=== PATIENT | female | born 1940 | race Caucasian/White ===

== ENCOUNTER → 2016-04-28 | Outpatient (CLI) | payer OTHER ==
[~2016-04-28] MED LIST: ASPI-232 PO; CALCTAB5 PO; CHOL1000 PO; FLNIN NAE; HYG/25 PO; LISI-725 PO; METO1TAB69 PO; OMEG12006 PO; POTA12PO5 PO; PRAV20TA PO; SYN75 PO; TRAM-10 PO; VTMEUNK PO; [UNRECOGNIZED DRUG - CODE] PO
--- NOTE | 2016-04-28 13:35 | MAMMOGRAPHY REPORT ---
BILATERAL DIGITAL SCREENING MAMMOGRAM WITH CAD: 04/28/2016 CLINICAL HISTORY: Routine screening. Patient has no complaints. TECHNIQUE: Current study was also evaluated with a Computer Aided Detection (CAD) system. Bilatera l CC and MLO views were obtained. COMPARISON: Comparison is made to exams dated: 04/23/2015 mammogram, 04/19/2013 mammogram, 05/15/2014 mammogram, 05/01/2014 mammogram, 09/17/2013 mammogram, and 04/14/2012 mammogram - [facility]. BREAST COMPOSITION: There are scattered areas of fibroglandular density in both breasts. FINDINGS: No suspicious masses, calcifications, or areas of architectural distortion are noted in e ither breast. There has been no significant interval change compared to prior exams. Scattered bilat eral benign-appearing calcifications are not significantly changed. A biopsy marker clip is again n oted in the left upper outer quadrant. IMPRESSION: ACR BI-RADS CATEGORY 2: BENIGN There is no mammographic evidence of malignancy. A 1 year screening mammogram is recommended. The p atient will receive written notification of the results. Approximately 10% of breast cancers are not detected with mammography. A negative mammographic repor t should not delay biopsy if a clinically suggestive mass is present. Betsy Hugo M.D. ah/:04/28/2016 10:25:31 Research Lab Assistant: Kat RIZVI(Cyndie)(M), [facility] letter sent: Normal 1/2 BI-RADS Code: ACR BI-RADS Category 2: Benign
== END | disposition home or self-care (01) ==
LOC: C.MAMM 08:54
PROVIDERS: ATTEND Obstetrics & Gynecology
DX: Z12.31 Encounter for screening mammogram for malignant neoplasm of breast (principal)

== ENCOUNTER → 2016-12-23 | Outpatient (CLI) | payer OTHER ==
[~2016-12-23] MED LIST changes: +METO100T44 PO; -METO1TAB69 PO
== END | disposition home or self-care (01) ==
LOC: C.PAPS 14:04
PROVIDERS: ATTEND Obstetrics & Gynecology
DX: Z12.4 Encounter for screening for malignant neoplasm of cervix (principal)

== ENCOUNTER → 2017-04-20 | Day surgery (SDC) | payer OTHER ==
[2017-04-12 08:55] VITALS: BMI 26.0
[2017-04-14 13:47] VITALS: Ht 157.5 cm; Wt 66.4 kg
[~2017-04-20] VITALS: Ht 157.5 cm; Wt 66.4 kg
[~2017-04-20] MED LIST changes: +ATROPINE SULFATE 0.1 MG/ML 5ML SYR IV PRN; +BUPIVACAINE 0.5 % 5 MG/1 ML MPF 30ML VIAL ONE; +CALC500C70 PO; -CALCTAB5 PO; +CEFAZOLIN 1000MG IV PUSH 7.5 ML IV SCH; +DEXAMETHASONE SOD INJ 4 MG/ML VIAL ONE; +EpHEDrine SULFATE INJ 50 MG/ML AMP IV PRN; +FENTANYL CITRATE INJ 50 MCG/1 ML 2 ML VIAL ONE; -FLNIN NAE; +FLUT0.15; +LACTATED RINGER'S 1000ML 1,000 ML IV SCH; +LEVO75TA5 PO; +LIDOCAINE HCL 2% 2 ML VIAL (20MG/ML) ONE; +LIDOCAINE HCL 2% LOCAL 20 ML VIAL ONE; -LISI-725 PO; +LSN40 PO; +MIDAZOLAM HCL 1 MG/ML 2ML VIAL ONE; +ONDANSETRON INJ 2 MG/ML 2 ML VIAL ONE; -POTA12PO5 PO; +POTA20TA16 PO; -PRAV20TA PO; +PROPOFOL IV EMULSION 10 MG/ML 20 ML VIAL IV ONE; +PRVC/40 PO; +SODIUM CHLORIDE 0.9% 1000ML 1,000 ML IV SCH; -SYN75 PO; -TRAM-10 PO; +TRAM-453 PO; +VITA10004 PO; -VTMEUNK PO
--- NOTE | 2017-04-20 10:07 | History & Physical Bridge - SC ---
H&P Re-Evaluation Bridge Note: I have examined the patient, reviewed the History & Physical and in the interval since the performance of the History & Physical I have noted the following changes of clinical significance: No changes noted
[2017-04-20 10:52] VITALS: TEMP 36.4
--- NOTE | 2017-04-20 10:53 | [facility] Post Operative Brief Note ---
Immediate Operative Summary Operative Date Apr 20, 2017. Pre-Operative Diagnosis Right carpal tunnel syndrome Post-Operative Diagnosis Same as pre-op Procedure(s) Performed Right Carpal Tunnel Release Surgeon Rental Management Trainee Surgeon(s) Kain CHILDERS Estimated Blood Loss Minimal Findings Consistent with Post-Op Diagnosis Specimens None Drains None Anesthesia Type MAC Complication(s) none Disposition Accompanied Pt To Recovery: yes Disposition: Recovery Room / PACU
--- NOTE | 2017-04-20 10:55 | Discharge Instructions-SurgCtr ---
Discharge Instructions Date of Service Apr 20, 2017. Visit Reason for Visit: Right Carpal Tunnel Syndrome Discharge Discharge Diagnosis / Problem: right carpal tunnel syndrome Discharge Goals Goal(s): Decrease discomfort, Therapeutic intervention Activity Recommendations Activity Limitations: per Instructions/Follow-up section Anesthesia . Post Anesthesia Instructions: If you have had General Anesthesia or IV Sedation: * Do not drive today. * Resume driving when surgeon permits. * Do not make important decisions or sign legal documents today. * Call surgeon for: 1. Temperature elevations greater than 101 degrees F. 2. Uncontrollable pain. 3. Excessive bleeding. 4. Persistent nausea and vomiting. 5. Medication intolerance (nausea, vomiting or rash). * For nausea and vomiting use only clear liquids such as: tea, soda, bouillon until nausea subsides, then gradually increase diet as tolerated. * If you have any concerns or questions, call your surgeon's office. If physician is unavailable and it is an emergency, call 911 or go to the nearest emergency room. . Instructions / Follow-Up Instructions / Follow-Up MEDICATIONS: * Resume previous medications unless instructed otherwise by your surgeon. * Always take pain medication on a full stomach or with food to avoid upset stomach. * Do not drink alcohol or drive while taking narcotics. * Ibuprofen or Tylenol may be taken if narcotic not needed. SPECIAL CARE INSTRUCTIONS: __ None __ Keep extremity elevated and iced x 48 hours; apply ice 20-30 minutes 8-10 times/day. May remove at night. __ Sling __24 hrs/day __ Remove at night __ Shoulder Immobilizer __ 24 hrs/day __ Remove at night _x_ Dressing _x_ Maintain until seen in office, may shower with plastic over site __ Remove dressings in 24-48 hours and then may shower __ Cover incisions with band-aids after showering __ Do not remove steri-strips Call physician if chills or temperature rises above 102 degrees or pain unrelieved by prescribed pain medications at . . follow up in 2 weeks Diet Recommendations Home Diet: resume previous diet Procedures Procedures Performed: Right Carpal Tunnel Release Pending Studies Studies pending at discharge: no Medical Emergencies . Who to Call and When: Medical Emergencies: If at any time you feel your situation is an emergency, please call 911 immediately. . Non-Emergent Contact Non-Emergency issues call your: Surgeon . . "Provider Documentation" section prepared by Jose Sarkar. .
[2017-04-20 11:21] VITALS: BP 194/78; PULSE 61; O2SAT 97
--- NOTE | 2017-04-20 11:23 | Anesthesia Progress Nt - [facility] ---
Anesthesia Post Op Note Date & Time Apr 20, 2017 at 11:23 Vital Signs Pain Intensity: 0 Vital Signs Past 12 Hours Date Time Temp Pulse Resp B/P (MAP) Pulse Ox O2 Delivery O2 Flow Rate FiO2 04/20/17 11:21 61 16 194/78 (116) 97 Room Air 04/20/17 10:52 36.4 58 16 186/85 (118) 95 Room Air 04/20/17 09:03 36.7 56 16 195/86 (122) 100 Room Air Notes Mental Status: alert / awake / arousable, participated in evaluation Pt Amnestic to Procedure: Yes Nausea / Vomiting: adequately controlled Pain: adequately controlled Airway Patency, RR, SpO2: stable & adequate BP & HR: stable & adequate Hydration State: stable & adequate Anesthetic Complications: no major complications apparent
--- NOTE | 2017-04-20 13:41 | OPERATIVE REPORT ---
DATE OF OPERATION: 04/20/2017 SURGEON: Jagjit Rodriguez MD CONSULTING ACTUARY: LIGIA Ardon PREOPERATIVE DIAGNOSIS: Right carpal tunnel syndrome. POSTOPERATIVE DIAGNOSIS: Same. PROCEDURE PERFORMED: Right carpal tunnel release. COMPLICATIONS: None. ESTIMATED BLOOD LOSS: Minimal. TOURNIQUET TIME: 7 minutes at 250 mmHg. ANESTHESIA: Local with IV sedation. OPERATIVE INDICATIONS: The patient is a 76-year-old female who has had a several year history of bilateral hand pain, discomfort and numbness that has been extensive and worse over time. She has got to the point where she is having discoordination and dysfunction of her hand. She had nerve studies that revealed moderate to severe carpal tunnel syndrome in both hands. She elected to proceed with right carpal tunnel release. OPERATIVE PROCEDURE: The patient was taken to the operating room, identified and placed on the operating table in the supine position. All contact areas were appropriately padded. IV antibiotics were provided by the anesthesia team. A right forearm tourniquet was placed. Some IV sedation was provided. Then, an 8 mL of 50:50 combination of 0.5% Marcaine and 2% lidocaine were injected in and around the proposed incision site. The right hand was then prepped and draped in the usual sterile fashion. The right arm was elevated and exsanguinated with Esmarch and tourniquet was placed at 250 mmHg. A 2.5-3 cm incision was made in the palm just ulnar to the palmaris longus tendon. Blunt dissection was carried out through the subcutaneous tissues down to the level of the palmar fascia. The palmar fascia was incised longitudinally in line with skin incision. The underlying transverse carpal ligament was identified. It was transected distally with the use of a [place] blade knife. It was bluntly spread and found to be completely released. Attention was then drawn proximally. Blunt dissection was carried out above and below the ligament proximally. The ligament was transected for a minimum distance of 3 cm proximal to the wrist flexion crease. The ligament was bluntly spread and found to be completely released. The wound was irrigated with copious amounts of normal saline. The tourniquet was then let down for a tourniquet time of 7 minutes. Hemostasis was assured using electrocautery. The wound was once again irrigated. Skin was then closed with 5-0 nylon suture in a horizontal mattress fashion. Hand was then cleaned and dried and a sterile dressing of Xeroform, 4 x 4, sterile cast padding and Omar bandage were applied. The patient was then transferred to the recovery room in stable condition. The patient tolerated the procedure well with no complications. All needle and sponge counts were correct at the end of the operation. I attest to the content of the Intraoperative Record and any orders documented therein. Any exception s are noted below.
== END | disposition home or self-care (01) ==
LOC: X.SURG 08:48
PROVIDERS: ATTEND Orthopaedic Surgery Sports Medicine
DX: G56.01 Carpal tunnel syndrome, right upper limb (principal); I10 Essential (primary) hypertension; Z88.6 Allergy status to analgesic agent; E03.9 Hypothyroidism, unspecified; M19.90 Unspecified osteoarthritis, unspecified site; Z96.641 Presence of right artificial hip joint; Z98.890 Other specified postprocedural states

== ENCOUNTER → 2017-05-04 | Outpatient (CLI) | payer OTHER ==
[~2017-05-04] MED LIST changes: -ATROPINE SULFATE 0.1 MG/ML 5ML SYR IV PRN; -BUPIVACAINE 0.5 % 5 MG/1 ML MPF 30ML VIAL ONE; -CEFAZOLIN 1000MG IV PUSH 7.5 ML IV SCH; -DEXAMETHASONE SOD INJ 4 MG/ML VIAL ONE; -EpHEDrine SULFATE INJ 50 MG/ML AMP IV PRN; -FENTANYL CITRATE INJ 50 MCG/1 ML 2 ML VIAL ONE; -LACTATED RINGER'S 1000ML 1,000 ML IV SCH; -LIDOCAINE HCL 2% 2 ML VIAL (20MG/ML) ONE; -LIDOCAINE HCL 2% LOCAL 20 ML VIAL ONE; -MIDAZOLAM HCL 1 MG/ML 2ML VIAL ONE; -ONDANSETRON INJ 2 MG/ML 2 ML VIAL ONE; -PROPOFOL IV EMULSION 10 MG/ML 20 ML VIAL IV ONE; -SODIUM CHLORIDE 0.9% 1000ML 1,000 ML IV SCH; -TRAM-453 PO
--- NOTE | 2017-05-04 15:54 | MAMMOGRAPHY REPORT ---
BILATERAL DIGITAL SCREENING MAMMOGRAM TOMOSYNTHESIS WITH CAD: 05/04/2017 CLINICAL HISTORY: Routine screening. Patient has no complaints. TECHNIQUE: Breast tomosynthesis in addition to standard 2D mammography was performed. Current study was also evaluated with a Computer Aided Detection (CAD) system. COMPARISON: Comparison is made to exams dated: 04/23/2015 mammogram, 05/15/2014 mammogram, 05/15/2014 u ltrasound biopsy, 05/01/2014 ultrasound, 05/01/2014 mammogram, and 09/17/2013 mammogram - [facility]. BREAST COMPOSITION: There are scattered areas of fibroglandular density in both breasts. FINDINGS: There are numerous scattered benign rim and coarse calcifications throughout the breasts. A stable ribbon-shaped biopsy marker clip in the left upper outer quadrant. No new suspicious mass, architectural distortion or cluster of microcalcifications is seen. IMPRESSION: ACR BI-RADS CATEGORY 1: NEGATIVE There is no mammographic evidence of malignancy. A 1 year screening mammogram is recommended. The pa tient will receive written notification of the results. Approximately 10% of breast cancers are not detected with mammography. A negative mammographic report should not delay biopsy if a clinically suggestive mass is present. Bere Tang M.D. ay/:05/04/2017 09:26:53 Surface Plate Finisher: Alissa EDMONDSON)(M), [facility] letter sent: Normal 1/2 BI-RADS Code: ACR BI-RADS Category 1: Negative
== END | disposition home or self-care (01) ==
LOC: C.MAMM 08:57
PROVIDERS: ATTEND Obstetrics & Gynecology
DX: Z12.31 Encounter for screening mammogram for malignant neoplasm of breast (principal)

== ENCOUNTER → 2017-05-25 | Day surgery (SDC) | payer OTHER ==
[2017-05-10 13:33] VITALS: Ht 157.5 cm; Wt 66.4 kg
[~2017-05-25] VITALS: Ht 157.5 cm; Wt 66.4 kg
[~2017-05-25] MED LIST changes: +ATROPINE SULFATE 0.1 MG/ML 5ML SYR IV PRN; +BUPIVACAINE 0.5 % 5 MG/1 ML PF 10ML VIAL ONE; +CEFAZOLIN 1000MG IV PUSH 7.5 ML IV SCH; +EpHEDrine SULFATE INJ 50 MG/ML AMP IV PRN; +FENTANYL CITRATE INJ 50 MCG/1 ML 2 ML VIAL IV PRN; +FENTANYL CITRATE INJ 50 MCG/1 ML 2 ML VIAL ONE; +LACTATED RINGER'S 1000ML 1,000 ML IV SCH; +LIDOCAINE HCL 2% 2 ML VIAL (20MG/ML) ONE; +LIDOCAINE HCL 2% LOCAL 20 ML VIAL ONE; +MIDAZOLAM HCL 1 MG/ML 2ML VIAL ONE; +ONDANSETRON INJ 2 MG/ML 2 ML VIAL IV PRN; +PROPOFOL IV EMULSION 10 MG/ML 20 ML VIAL IV ONE; +SODIUM CHLORIDE 0.9% 1000ML 1,000 ML IV SCH
--- NOTE | 2017-05-25 07:55 | [facility] Post Operative Brief Note ---
Immediate Operative Summary Operative Date May 25, 2017. Pre-Operative Diagnosis Left Carpal Tunnel Syndrome Post-Operative Diagnosis Same Procedure(s) Performed Left Carpal Tunnel Release Surgeon Dr. Rodriguez Minute Clerk For Basic Traffic Surgeon(s) Sri Sarkar PA-C Estimated Blood Loss Minimal Findings Consistent with Post-Op Diagnosis Specimens None Drains None Anesthesia Type MAC Complication(s) none Disposition Accompanied Pt To Recovery: no Disposition: Recovery Room / PACU
--- NOTE | 2017-05-25 07:57 | Discharge Instructions-SurgCtr ---
Discharge Instructions Date of Service May 25, 2017. Visit Reason for Visit: Left Carpal Tunnel Syndrome Discharge Discharge Diagnosis / Problem: left carpal tunnel syndrome Discharge Goals Goal(s): Decrease discomfort, Improve function, Therapeutic intervention Activity Recommendations Activity Limitations: per Instructions/Follow-up section Anesthesia . Post Anesthesia Instructions: If you have had General Anesthesia or IV Sedation: * Do not drive today. * Resume driving when surgeon permits. * Do not make important decisions or sign legal documents today. * Call surgeon for: 1. Temperature elevations greater than 101 degrees F. 2. Uncontrollable pain. 3. Excessive bleeding. 4. Persistent nausea and vomiting. 5. Medication intolerance (nausea, vomiting or rash). * For nausea and vomiting use only clear liquids such as: tea, soda, bouillon until nausea subsides, then gradually increase diet as tolerated. * If you have any concerns or questions, call your surgeon's office. If physician is unavailable and it is an emergency, call 911 or go to the nearest emergency room. . Instructions / Follow-Up Instructions / Follow-Up MEDICATIONS: * Resume previous medications unless instructed otherwise by your surgeon. * Always take pain medication on a full stomach or with food to avoid upset stomach. * Do not drink alcohol or drive while taking narcotics. * Ibuprofen or Tylenol may be taken if narcotic not needed. SPECIAL CARE INSTRUCTIONS: __ None __ Keep extremity elevated and iced x 48 hours; apply ice 20-30 minutes 8-10 times/day. May remove at night. __ Sling __24 hrs/day __ Remove at night __ Shoulder Immobilizer __ 24 hrs/day __ Remove at night _x_ Dressing _x_ Maintain until seen in office, may shower with plastic over site __ Remove dressings in 24-48 hours and then may shower __ Cover incisions with band-aids after showering __ Do not remove steri-strips Call physician if chills or temperature rises above 102 degrees or pain unrelieved by prescribed pain medications at . . Diet Recommendations Home Diet: resume previous diet Procedures Procedures Performed: Left Carpal Tunnel Release Pending Studies Studies pending at discharge: no Medical Emergencies . Who to Call and When: Medical Emergencies: If at any time you feel your situation is an emergency, please call 911 immediately. . Non-Emergent Contact Non-Emergency issues call your: Surgeon . . "Provider Documentation" section prepared by Jose Sarkar. .
[2017-05-25 08:29] VITALS: PULSE 60; O2SAT 98
[2017-05-25 08:33] VITALS: BP 180/77
--- NOTE | 2017-05-25 08:46 | Anesthesia Progress Nt - [facility] ---
Anesthesia Post Op Note Date & Time May 25, 2017 at 08:42 Vital Signs Pain Intensity: 0 Vital Signs Past 12 Hours Date Time Temp Pulse Resp B/P (MAP) Pulse Ox O2 Delivery O2 Flow Rate FiO2 05/25/17 08:33 180/77 (111) 05/25/17 08:29 60 16 186/82 (116) 98 Room Air 05/25/17 08:00 36.7 60 12 170/64 (99) 97 Room Air 05/25/17 06:33 36.6 63 16 183/91 (121) 97 Room Air Notes Mental Status: alert / awake / arousable, participated in evaluation Pt Amnestic to Procedure: Yes Nausea / Vomiting: adequately controlled Pain: adequately controlled Airway Patency, RR, SpO2: stable & adequate BP & HR: stable & adequate Hydration State: stable & adequate Anesthetic Complications: no major complications apparent Patient with h/o HTN s/p CTR with Dr. Rodriguez. The patients BP was elevated this am to 180s/90s. She did not take her lisinopril this morning. She was asymptomatic and stated that her BP was elevated last time she was here. The patient's SBP came down to the 170s/66 with anesthesia but then returned to 180/ 77 prior to discharge. The patient stated she felt well with no complaints. She was instructed to take her lisinopril as soon as she gets home. She understands and agrees.
--- NOTE | 2017-05-25 10:27 | OPERATIVE REPORT ---
DATE OF OPERATION: 05/25/2017 SURGEON: Jagjit Rodriguez MD. PARKING ENFORCEMENT TECHNICIAN: LIGIA Ardon. PREOPERATIVE DIAGNOSIS: Left carpal tunnel syndrome. POSTOPERATIVE DIAGNOSIS: Same. PROCEDURE PERFORMED: Left carpal tunnel release. COMPLICATIONS: None. ESTIMATED BLOOD LOSS: Minimal. TOURNIQUET TIME: 5 minutes at 250 mmHg. ANESTHESIA: Local with IV sedation. OPERATIVE INDICATIONS: The patient is a 76-year-old female who has had a long history of bilateral hand pain, discomfort and numbness. She underwent a right carpal tunnel release little over a month ago and has done well from this. It is felt like she got significant return of sensation, function and pain relief and she elected to do the have left carpal tunnel release. She did have nerve studies which revealed bilateral moderate to severe carpal tunnel syndrome. She also had some C6 radiculopathy on the left side and was fully aware that this may not take care of all of her symptoms. OPERATIVE PROCEDURE: The patient was taken to the operating room, identified and placed on the operative table in supine position. All contact areas were appropriately padded. IV antibiotics were provided by the anesthesia team. A left forearm tourniquet was placed. Some IV sedation was provided. 9 mL of 50:50 combination of 0.5% Marcaine with epinephrine and 2% lidocaine were then injected in and around the proposed incision site. The left hand was then prepped and draped in usual sterile fashion. The left hand was elevated and exsanguinated with an Esmarch and tourniquet was placed at 250 mmHg. A 2.5 cm incision was made in the palm just ulnar to the palmaris longus tendon. Blunt dissection was carried through subcutaneous tissues down to the level of the palmar fascia. The palmar fascia was incised longitudinally in line with the skin incision. The underlying transverse carpal ligament was identified. It was transected distally with use of a [place] blade knife and bluntly spread. Attention was then drawn proximally. Blunt dissection carried out above and below the ligament proximally. The ligament was then transected from minimum distance of 3 cm proximal to the wrist flexion crease. The ligament was bluntly spread and found to be completely released. The wound was irrigated with copious amounts of normal saline. The tourniquet was let down for a tourniquet time of 5 minutes. Hemostasis was assured with use of electrocautery. The wound was once again irrigated. The skin was then closed with 5-0 nylon suture in a horizontal mattress fashion. The hand was then cleaned and dried and a sterile dressing of Xeroform, 4 x 4, sterile cast padding and Omar bandage were applied. The patient then transferred to the recovery room in stable condition. The patient tolerated the procedure well with no complication. All needle and sponge counts were correct at the end of the operation. I attest to the content of the Intraoperative Record and any orders documented therein. Any exception s are noted below.
== END | disposition home or self-care (01) ==
LOC: X.SURG 06:25
PROVIDERS: ATTEND Orthopaedic Surgery Sports Medicine
DX: G56.02 Carpal tunnel syndrome, left upper limb (principal); I10 Essential (primary) hypertension

== ENCOUNTER 2019-12-19 05:04 | Observation (INO) ==
--- NOTE | 2019-11-07 15:15 | PAT Medication Instructions ---
Medication Instructions Date of Service November 07, 2019 Home Medications aspirin [Aspir-81] 81 mg PO QAM chlorthalidone 25 mg PO QAM levothyroxine 75 mcg PO QAM lisinopril 40 mg PO QAM potassium chloride 20 meq PO BID pravastatin 40 mg PO HS fluticasone propionate 50 mcg/actuation nasal spray,suspension 2 sprays INTRANASAL DAILY PRN amoxicillin 500 mg PO UD PRN calcium carbonate [Calcium 600] 600 mg PO QAM cholecalciferol (vitamin D3) [Vitamin D3] 50 mcg PO BID glucosamine sulfate 1,000 mg PO QAM omega-3 fatty acids-fish oil [[place] 3 Fish Oil] 1 cap PO QAM vitamin E 1 tab PO QAM Continue as directed amoxicillin 500 mg PO UD PRN (if needed) STOP taking 2 weeks before surgery (or as soon as possible if surgery is within 2 weeks) glucosamine sulfate 1,000 mg PO QAM omega-3 fatty acids-fish oil [[place] 3 Fish Oil] 1 cap PO QAM vitamin E 1 tab PO QAM DO NOT take the morning of surgery chlorthalidone 25 mg PO QAM lisinopril 40 mg PO QAM potassium chloride 20 meq PO BID calcium carbonate [Calcium 600] 600 mg PO QAM cholecalciferol (vitamin D3) [Vitamin D3] 50 mcg PO BID Take morning of surgery With a small sip of water, OTHERWISE NOTHING TO EAT OR DRINK AFTER MIDNIGHT: aspirin [Aspir-81] 81 mg PO QAM levothyroxine 75 mcg PO QAM fluticasone propionate 50 mcg/actuation nasal spray,suspension 2 sprays INTRANASAL DAILY PRN (if needed) Take evening before surgery potassium chloride 20 meq PO BID pravastatin 40 mg PO HS fluticasone propionate 50 mcg/actuation nasal spray,suspension 2 sprays INTRANASAL DAILY PRN (if needed) cholecalciferol (vitamin D3) [Vitamin D3] 50 mcg PO BID Other Notes If you have any questions please call us at [phone] or [phone] or [phone] or [phone]
--- NOTE | 2019-11-08 13:32 | Anesthesiology Consultation ---
Date of Service November 08, 2019 Assessment & Plan (1) Encounter for pre-operative examination: Chart Review Chart Review: Acceptable Risk for Surgery (pending preop Covid testing results ) and Patient seen in Pre Admission Testing Per PAT appt on 11/08/19, patient resides in [facility]. Traveled to [facility] for dental appt. No known Covid positive contacts or Covid related symptoms. Educated patient to follow up with surgeon's office regarding Covid testing. Educated on importance of self quarantining, social distancing and wearing mask in public both for the patient and household contacts. Teaching & Discussion Pre-Anesthesia Teaching/Discussion Notes: Instructed NPO after midnight before surgery,except medications with 15 cc of water. Medication instructions provided according to the [facility] guidelines. History Surgery Operation Date: 12/19/19 10:50 Proposed Procedures p Left Total Hip Arthroplasty - Jagjit Rodriguez MD Height/Weight Height: 5 ft 1.5 in Weight: 62.7 kg Allergies Allergy/AdvReac Type Severity Reaction Status Date / Time naproxen Allergy Mild ITCH Verified 11/08/19 10:34 PAIN MEDICATION Allergy Intermediate Hallucinati Uncoded 11/08/19 10:34 ng Medications Home Medications Medication Instructions Recorded Confirmed Last Taken aspirin [Aspir-81] 81 mg PO QAM 02/03/18 11/08/19 Unknown chlorthalidone 25 mg PO QAM 02/03/18 11/08/19 Unknown levothyroxine 75 mcg PO QAM 02/03/18 11/08/19 Unknown lisinopril 40 mg PO QAM 02/03/18 11/08/19 Unknown potassium chloride 20 meq PO BID 02/03/18 11/08/19 Unknown pravastatin 40 mg PO HS 02/03/18 11/08/19 Unknown fluticasone propionate 50 2 sprays INTRANASAL DAILY PRN ml 03/21/19 11/08/19 Unknown mcg/actuation nasal spray,suspension amoxicillin 500 mg PO UD PRN 11/07/19 11/08/19 Unknown calcium carbonate [Calcium 600] 600 mg PO QAM 11/07/19 11/08/19 Unknown cholecalciferol (vitamin D3) 50 mcg PO BID 11/07/19 11/08/19 Unknown [Vitamin D3] glucosamine sulfate 1,000 mg PO QAM 11/07/19 11/08/19 Unknown omega-3 fatty acids-fish oil 1 cap PO QAM 11/07/19 11/08/19 Unknown [[place] 3 Fish Oil] vitamin E 1 tab PO QAM 11/07/19 11/08/19 Unknown Past Medical History Medical History 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 (HAD ISSUES WITH PASSAGE INTO KIDNEY- DRANK INCREASED WATER AND ISSUES IMPROVED (KIDNEY FUNCTION WNL CURRENTLY) Hyperlipidemia Hypertension Hypothyroidism Tremor RT HAND Exercise / Class Metabolic Activity II 4-5 Yardwork/Stairs/Walk up hill (ONE FLIGHT OF STAIRS - NO CHEST PAIN OR SOB (USED TO WALK 4 MILES PER DAY- STOPPED IN MAY 2019 DUE TO COVID)) Past Family History Family History Mother Family history of diabetes mellitus Father Family history of diabetes mellitus Past Surgical History Surgical History Fusion of spine LUMBAR History of anesthesia reaction CONFUSED/TRYING TO WALK OUT History of carpal tunnel release RT/LEFT History of cataract surgery RT/LEFT History of colonoscopy History of tonsillectomy History of tooth extraction History of total hip arthroplasty RT Past Anesthesia History No Hx of Anesthesia Complications (WITH EXCEPTION TO CONFUSION/TRYING TO GET OUT OF BED ) and No Family Hx of Anesthesia Complications History of PONV No Hx of PONV and No Hx of Motion Sickness Social History Smoking Status: Never smoker Do You Dip or Chew Tobacco: No Hx Alcohol Use: No Hx Substance Use: No substance use type: does not use Review of Systems Did have history of blood transfusion years ago- unsure why. No recent transfusions. Patient denies chest pain, shortness of breath, dyspnea on exertion, reflux, cough, wheezing, palpitations. No hx of seizures, stroke, PA, apnea/snoring. No hx of blood clots. Physical Exam Vital Signs VITALS BP 170/74 P 80 TEMP 98.1 SP02 97% RESP 16 Constitutional no acute distress ENMT Mouth: no TMJ clicking Thyromental Distance: < 3.5 Finger Breadths (3.0) Mallampati Class: IV Missing molar Neck neck extension not limited Respiratory normal respiratory effort; no respiratory distress Auscultation: lungs clear to auscultation bilaterally; no wheezes Cardiovascular Rate/Rhythm: regular rate and regular rhythm Heart Sounds: no murmur Vessels: no carotid bruit Musculoskeletal Spine: no pain with cervical ROM Neurologic moves all extremities Psychiatric Orientation: alert Testing Laboratory Results 11/08/19 14:10 11/08/19 14:10 PT 10.9 Seconds (9.0-12.0) 11/08/19 14:10 INR 1.0 (0.9-1.1) 11/08/19 14:10 APTT 26.8 Seconds (21.0-31.0) 11/08/19 14:10 Blood Type O Negative 11/08/19 14:10 Antibody Screen NEGATIVE 11/08/19 14:10 Electrocardiogram Date: 11/08/19 Sinus rhythm with PVCs at 77 bpm. Minimal voltage criteria for LVH, may be normal variant. Nonspecific ST abnormality. Chest X-Ray Date: 11/08/19 Findings: + NAD
--- NOTE | 2019-11-08 14:35 | XRay Report ---
XR chest Pre-admission PA/Lat HISTORY: 79 years-old Female pat preoperative exam. No acute chest complaints COMPARISON: Chest radiograph 06/09/2015 TECHNIQUE: PA and lateral views of the chest FINDINGS: Cardiomediastinal and hilar silhouettes are within normal limits. No pneumothorax, pleural effusion, airspace consolidation or overt pulmonary edema. Bones appear grossly intact. Sigmoidal thoracolumbar scoliosis. Degenerative changes of the spine and shoulders. IMPRESSION: No acute process. ACT 112: Negative or not required by law. The above report was generated using voice recognition software. It may contain grammatical, syntax o r spelling errors. Electronically signed by: Mason Chau M.D. 11/08/2019 2:34 PM
[2019-11-08 15:30] LABS: Basophils # (auto) 0.02 K/uL (0-0.2); Basophils % (auto) 0.3 %; Eosinophils # (auto) 0.01 K/uL (0-0.5); Eosinophils % (auto) 0.2 %; Hematocrit (blood only) 38.9 % (37-47); Hemoglobin 12.8 g/dL (12.0-16.0); Immature Granulocytes # (auto) 0.02 K/uL (0.00-0.02); Immature Granulocytes % (auto) 0.3 %; Lymphocytes # (auto) 1.45 K/uL (1.2-3.4); Lymphocytes % (auto) 22.6 %; Mean Corpuscular Hemoglobin 29.5 pg (25-34); Mean Corpuscular Hgb Conc 32.9 g/dL (32-36); Mean Corpuscular Volume 89.6 fL (80-100); Mean Platelet Volume 9.1 fL (7.4-10.4); Monocytes # (auto) 0.47 K/uL (0.11-0.59); Monocytes % (auto) 7.3 %; Neutrophils # (auto) 4.46 K/uL (1.4-6.5); Neutrophils % (auto) 69.3 %; Platelet Count 260 K/uL (130-400); RDW Coefficient of Variation 13.1 % (11.5-14.5); RDW Standard Deviation 43.2 fL (36.4-46.3); Red Blood Count 4.34 M/uL (4.2-5.4); White Blood Count 6.43 K/uL (4.8-10.8)
[2019-11-08 15:38] LABS: BUN Creatinine Ratio 19.8 (10-20); Blood Urea Nitrogen 16 mg/dl (7-18); C Reactive Protein < 0.29 mg/dl (0-0.29); Calcium 10.3 mg/dl (8.5-10.1); Carbon Dioxide 31 mmol/L (21-32); Chloride 101 mmol/L (98-107); Creatinine Clr Calc Pharmacy 49.4 ml/min; Glucose 102 mg/dl (70-99); Potassium 3.8 mmol/L (3.5-5.1); Sodium 137 mmol/L (136-145)
[2019-11-08 15:49] LABS: Partial Thromboplastin Time 26.8 Seconds (21.0-31.0); Prothrombin Time 10.9 Seconds (9.0-12.0)
--- NOTE | 2019-11-09 06:53 | Electrocardiogram Report ---
Test Reason : Blood Pressure : / mmHG Vent. Rate : 077 BPM Atrial Rate : 077 BPM P-R Int : 166 ms QRS Dur : 092 ms QT Int : 380 ms P-R-T Axes : 036 062 038 degrees QTc Int : 430 ms Sinus rhythm with Premature atrial complexes Minimal voltage criteria for LVH, may be normal variant Nonspecific ST abnormality Abnormal ECG When compared with ECG of 03-FEB-2018 19:06, Premature atrial complexes are now Present Confirmed by Robert Campbell ([id number]) on 11/09/2019 6:52:25 AM Referred By: Jagjit Rodriguez Confirmed By:Robert Campbell
--- NOTE | 2019-12-12 17:40 | History and Physical Report ---
DATE OF ADMISSION: 12/19/2019 CHIEF COMPLAINT: Left hip pain and discomfort. HISTORY OF PRESENT ILLNESS: The patient is a 79-year-old white female who is well known to me from previous right hip replacement done 5 years ago. Over the past year, she has developed increased pain and discomfort in her left hip. Her symptoms tend to wax and wane where there have been periods when she has had trouble walking at all. Hip is very stiff. She has difficulty putting her shoes and socks on. She uses a cane to get around for the past 6 months. She walks very hesitantly with the foot externally rotated due to the pain. She now would like to have her hip fixed. PAST MEDICAL HISTORY: 1. Hypertension. 2. Elevated cholesterol. 3. Hypothyroidism. PAST SURGICAL HISTORY: Includes: 1. Right total hip replacement done on 10/01/2014. 2. Tonsillectomy. 3. Abdominal surgery. 4. Back surgery. ALLERGIES: NARCOTICS WHICH CAUSE HALLUCINATIONS. CURRENT MEDICINES: Include: 1. Aspirin 81 mg a day. 2. Calcium. 3. Chlorthalidone 25 mg a day. 4. Vitamin D3. 5. Fluticasone nasal spray. 6. Glucosamine. 7. Levothyroxine 75 mcg a day. 8. Lisinopril 40 mg a day. 9. [place]-3 fish oil. 10. Potassium chloride 20 mEq twice a day. 11. Pravastatin 40 mg at nighttime. 12. Vitamin E. SOCIAL HISTORY: Significant for a 79-year-old white female. She lives in [place]. She does not smoke. No alcohol intake. She is . FAMILY HISTORY: Noncontributory. REVIEW OF HISTORY: Negative for diabetes, neurologic problem, vascular problems or bleeding disorders. Denies any chest pain or shortness of breath. No history of DVT or PE. PHYSICAL EXAMINATION: GENERAL: Shows a pleasant elderly female. Looks to be in pretty good health. HEENT: Benign. NECK: Supple, no lymphadenopathy. LUNGS: Clear to auscultation. HEART: Has a regular rate and rhythm. ABDOMEN: Soft, nontender, nondistended. EXTREMITIES: Grossly neurovascularly intact except as follows: Examination of the left hip and leg reveals the patient walks with an antalgic gait using her cane. She keeps her left foot externally rotated. She does limp on the left side. Leg lengths appear pretty equal. She has a very stiff hip with internal rotation to -10. No knee effusion. Negative straight leg raise. She is neurologically intact. X-RAYS: X-rays of the left hip were reviewed. It shows advanced left hip DJD. She has complete loss of superior joint space. She has flattening of the femoral head and a large medial osteophyte. A little bit of subluxation of the femoral head. She also has a back fusion. ASSESSMENT: A 79-year-old white female with a history of right hip replacement 5 years ago with advanced left hip degenerative joint disease. She has other comorbidities including hypertension, elevated cholesterol, and hypothyroidism. She has failed conservative measures. She does have the spine fusion, which makes a dislocation postoperatively more likely. PLAN: We talked about treatment. She now would like to have her hip fixed. We will proceed with left total hip replacement. The risks and benefits of this procedure were explained to the patient including but not limited to DVT, PE, , infection, neurological injury, vascular injury, bleeding problem, pain, limited range of motion, stiffness, failure to relieve her symptoms, incomplete relief of symptoms, need for further surgery in the future, fracture, leg length inequality, nerve palsy, dislocation, etc. The patient understands and desires to proceed. Informed consent was obtained. We will plan using noncemented stem, but we will have a cemented stem available if needed. We are going to try and maximize her stability due to her spine fusion. She is hoping to be discharged to home using [facility] home health program.
[2019-12-19] MEDS ORDERED: LR 500ML BOLUS, THEN 15ML/HR IV SCH (06:00)
[2019-12-19] MEDS ORDERED: ACETAMINOPHEN 500 MG TAB PO SCH (06:00)
[2019-12-19] MEDS ORDERED: METOCLOPRAMIDE HCL 10 MG TABLET PO SCH (06:00)
[2019-12-19] MEDS ORDERED: TRANEXAMIC ACID 1,000 MG **IV Pre-op IV SCH (06:00)
[2019-12-19] MEDS ORDERED: ceFAZolin 2000MG 2,000 MG/15 ML SYR IV SCH (06:00)
[2019-12-19] MEDS ORDERED: FAMOTIDINE 20 MG TAB PO SCH (06:00)
[2019-12-19] MEDS ORDERED: GABAPENTIN 300 MG CAP PO SCH (06:00)
[2019-12-19] MEDS ORDERED: BUPIVACAINE LIPOSOME/PF 266 MG, BUPIVACAINE/EPINEPHRINE 50 ML, SODIUM CHLORIDE 0.9% 30 ... INFIL SCH (06:00)
[2019-12-19] MEDS ORDERED: LR 60ML/HR IV SCH (06:00)
[2019-12-19] MEDS ORDERED: BUPIVACAINE 0.5 % 5 MG/1 ML PF 10ML VIAL ONE (06:27)
[2019-12-19] MEDS ORDERED: ONDANSETRON INJ 2 MG/ML 2 ML VIAL IV PRN ×2 (06:31→09:51)
[2019-12-19] MEDS ORDERED: ATROPINE SULFATE 0.1 MG/ML 10ML SYR IV PRN (06:31)
[2019-12-19] MEDS ORDERED: ePHEDrine sulfate 50 MG/ML AMP IV PRN (06:31)
[2019-12-19] MEDS ORDERED: fentaNYL citrate 100 MCG/2 ML VIAL IV PRN (06:31)
[2019-12-19] MEDS ORDERED: fentaNYL citrate 100 MCG/2 ML VIAL ONE (06:32)
[2019-12-19] MEDS ORDERED: MIDAZOLAM HCL 1 MG/ML 2ML VIAL ONE (06:32)
[2019-12-19] MEDS ORDERED: MoRPHine SULFATE PF 1 MG/ML 10 ML AMP/VIAL ONE (06:32)
[2019-12-19] MEDS ORDERED: PROPOFOL IV EMULSION 10 MG/ML 20 ML VIAL IV ONE (06:49)
[2019-12-19] MEDS ORDERED: ONDANSETRON INJ 2 MG/ML 2 ML VIAL ONE (06:49)
[2019-12-19] MEDS ORDERED: LIDOCAINE HCL 2% 2 ML VIAL/AMP(20MG/ML) INFIL ONE (06:49)
--- NOTE | 2019-12-19 06:56 | History & Physical Bridge Note ---
Date of Service December 19, 2019 History & Physical Bridge Note I have examined the patient, reviewed the History & Physical and in the interval since the performance of the History & Physical I have noted the following changes of clinical significance: no changes noted
[2019-12-19] MEDS ORDERED: BUPIVACAINE 0.5 % 5 MG/1 ML MPF 30ML VIAL ONE (07:04)
[2019-12-19] MEDS ORDERED: EPINEPHrine INJ 1 MG/ML AMP ONE (07:04)
[2019-12-19] MEDS ORDERED: BACITRACIN INJ 50,000 UNIT VIAL ONE (07:04)
[2019-12-19] MEDS ORDERED: ePHEDrine sulfate 50 MG/ML SYR ONE (07:36)
--- NOTE | 2019-12-19 08:45 | Post Operative Brief Note ---
PG Immediate Post Op with CF Date of Surgery December 19, 2019 Pre & Post Diagnosis Operation Date: 12/19/19 07:15 Pre-Op Diagnosis: Left Hip Degenerative Joint Disease Post-Op Diagnosis: Left Hip Degenerative Joint Disease I identified the patient and participated in the time-out.: Yes Procedure Operation Date: 12/19/19 07:15 Actual Procedures p Left Total Hip Arthroplasty(Left) - Jagjit Rodriguez MD Surgeon Jagjit Rodriguez MD Binder Selector Mello, PAC Estimated Blood Loss 200 Findings Consistent with Post-Op Diagnosis Fluids 1000 cc Specimens Specimen Description: Permanent specimen: A. Left femoral head Drains Carrillo Catheter (16 fr carrillo catheter placed by Sri Sarkar. Clear yellow urine for return) Anesthesia Type Spinal MAC Complications none Disposition Accompanied Patient To Recovery: Yes Disposition: Recovery Room
--- NOTE | 2019-12-19 08:56 | Operative Report ---
Post Operative Report Pre & Post Diagnosis Operation Date: 12/19/19 07:15 Pre-Op Diagnosis: Left Hip Degenerative Joint Disease Post-Op Diagnosis: Left Hip Degenerative Joint Disease I identified the patient and participated in the time-out.: Yes Procedure Operation Date: 12/19/19 07:15 Actual Procedures p Left Total Hip Arthroplasty(Left) - Jagjit Rodriguez MD Surgeon Jagjit Rodriguez MD Branch Account Manager Mello, PAC Estimated Blood Loss 200 Findings Consistent with Post-Op Diagnosis Operative findings revealed advanced left hip DJD with extensive grade 4 [id number] disease of the femoral head and acetabulum. She had flattening of the femoral head. She had a large hip joint effusion with some moderate synovitis. Small anterior acetabular osteophyte. Fluids 1000 cc. Specimens Left femoral head sent for pathology. Drains None. Anesthesia Type Spinal MAC Complications none Disposition Accompanied Patient To Recovery: Yes Disposition: Recovery Room Indications Patient is a 79-year-old female who is had a history of a right hip placed done about 5 years ago. Over the past the years she is developed increased pain discomfort in the left hip that is gotten singly worse over the past 6 months. X-ray showed advanced hip arthritis. She failed all conservative measures and elected proceed with total hip arthroplasty. Description of Procedure Operative implants consist of: 1. Biomet G7 size 52 mm acetabular shell. 2. 6.5 cancellus acetabular screws 1 of 35 mm length 120 mm length. 3. [place] hole eliminator. 4. Highly cross-linked polyethylene liner with a 52 mm outer diameter, 36 mm inner diameter and a simon placed inferior and posterior. 5. Palma Corail size 10 KLA femoral stem. 6. +8.5/36 mm ceramic articular ball. The patient was taken to the operating identified and placed on the operating table supine position protectors were properly padded. IV antibiotics arrived by anesthesia team. A spinal anesthetic had been implemented in the holding area. A Crandall catheter was placed in sterile fashion. The patient then placed in the right lateral decubitus position. Axillary roll was placed. A Stulberg hip positioner was used for positioning. The left hip and leg were then prepped and draped in usual sterile fashion. A posterior lateral posterior left hip was then performed to a curvilinear incision centered over the greater trochanter. Sharp dissection was carried through subcutaneous tissue down to the IT band gluteal fascia. The IT band gluteal fascia were incised longitudinally in line with skin incision. The underlying greater truck bursa was excised. The piriformis and external r otators were tagged and taken off the posterior aspect hip joint capsule. Great care was taken throughout the procedure protect sciatic nerve at all times. A posterior capsulotomy was then performed leaving a large flap for later repair. The hip was internally rotated and dislocated. Femoral neck osteotomy cut was made with Final Cut about 8 mm above the lesser trochanter. Femoral head was re moved and sent for pathology. The femur was retracted anteriorly. Attention drawn the acetabulum. The acetabular labrum was excised. The pulmonary fat was excised. Sequential reaming the acetabular was then performed again with a size 43 and progressing up to 51. I did reamed just a little bit with a 52 reamer and then placed a 52 mm G7 acetabular shell in about 40 degrees lateral opening and 20 degrees of anteversion. It was fixed with two 6.5 cancellus acetabular screws. Small osteophyte was taken off anteriorly. Trial liner was placed. Attention drawn the femur. The proximal femur was entered with a cookie-cutter followed by canal finder. Then broached begin the size 8 and progressing up to 10. Got excellent fit of the tendon I did not think the 11 good fit. Therefore we stop there. Calcar reamer was used smooth and off the calcar. I then trialed the hip. The +5 hip was fairly stable but there was some soft tissue laxity. I elected to use a +8.5 head in order to maximize soft tissue tension and stability. We also placed a simon inferior and posterior to maximize her stability in flexion. She does have history of back fusion and I was concerned about her instability postoperatively and wanted to maximize this. All trial implants were removed. An apex hole pull over machine operator was placed. Highly cross-linked polyethylene liner was placed with a simon placed inferior and posterior. I Palma size 10 KLA femoral stem was then placed. A +8.5/36 mm ceramic articular ball was placed in the hip was located. Stability was once again checked and found to be appropriate. Attention then drawn toward closing. The wound was irrigated copious pulsatile lavage solution. I did inject locally with 40 cc of half percent Marcaine with epinephrine. The posterior capsule and external rotators were then repaired through drill holes in the posterior trochanter with #2 Tycron suture. The IT band gluteal fascia then closed in 1 PDS suture in a running fashion. The subcutaneous tissue then closed with 2 layers the deep layer #1 Vicryl suture and the more superficial layer with 2-0 Dexon suture in a buried interrupted fashion. Skin was closed skin estefanía. Leg was then cleaned dried a sterile dressing composed Xeroform, 4 x 4's, ABD pad and foam tape was applied. Patient transferred to the recovery room in stable condition. Patient tolerated procedure well and there were no complications. Per Sarkar, my physician assistant food service manager, was present for the entire procedure. His assistance was essential and required for appropriate patient positioning, prepping and draping, surgical exposure, performing the technical details the operation, placement of the implants, and closure of the wound along with placement of the sterile dressing. I attest to the content of the Intraoperative Record and any orders documented therein. Any exceptions are noted below.
--- NOTE | 2019-12-19 09:02 | XRay Report ---
AP PELVIS, CROSSTABLE LATERAL LEFT HIP History: Left total hip arthroplasty. Degenerative arthritis. Postop. FINDINGS: The patient is status post a left total hip arthroplasty. The hardware is intact. No fractu re or dislocation. Skin estefanía are in place. Evidence for prior right total hip arthroplasty. IMPRESSION: Left total hip arthroplasty. No evidence for hardware complication. ACT 112: Negative or not required by law. Electronically signed by: Yordan Osman M.D. 12/19/2019 9:01 AM
[2019-12-19] MEDS ORDERED: ALUMINUM/MAGNESIUM SUSP 30 ML UDC PO PRN (09:51)
[2019-12-19] MEDS ORDERED: bisacodyL 10 MG SUPP PR PRN (09:51)
[2019-12-19] MEDS ORDERED: HYDROmorphone INJ 0.5 MG/0.5 ML SYR IV PRN (09:51)
[2019-12-19] MEDS ORDERED: traMADol HCL 50 MG TABLET PO PRN (09:51)
[2019-12-19] MEDS ORDERED: FLUTICASONE PROPIONATE NA SPR 16 GM BTL NAE PRN (09:51)
[2019-12-19] MEDS ORDERED: NALOXONE HCL 0.4 MG/1 ML VIAL/CARP IV PRN (09:51)
[2019-12-19] MEDS ORDERED: VITAMIN E PO SCH (09:51)
[2019-12-19] MEDS ORDERED: MAGNESIUM HYDROXIDE SUSP 30 ML UDC PO PRN (09:51)
[2019-12-19] MEDS ORDERED: METOCLOPRAMIDE HCL INJ 5 MG/ML 2 ML VIAL IV PRN (09:51)
[2019-12-19] MEDS: ASPIRIN 81 MG ECTAB PO SCH ×3 (11:11→20:31)
[2019-12-19] MEDS: CHOLECALCIFEROL 1,000 UNITS 25 MCG TAB PO SCH ×2 (11:12→20:32)
[2019-12-19] MEDS: CHLORTHALIDONE 25 MG TAB PO SCH (11:12)
[2019-12-19] MEDS: OMEGA-3 (PURIFIED FISH OIL) 1 GM CAP PO SCH (11:12)
[2019-12-19] MEDS: DOCUSATE SODIUM 100 MG CAP PO SCH ×2 (11:12→20:31)
[2019-12-19] MEDS: GLUCOSAMINE SULFATE 500 MG CAP PO SCH (11:13)
[2019-12-19] MEDS: POTASSIUM CHLORIDE 20 MEQ TABCR PO SCH ×2 (11:13→20:31)
[2019-12-19] MEDS: CALCIUM CARBONATE 1250MG TAB PO SCH (11:13)
[2019-12-19] MEDS: MULTIVITAMIN TAB PO SCH (11:13)
[2019-12-19] MEDS: LEVOTHYROXINE SODIUM 75 MCG TABLET PO SCH ×2 (11:14→11:20)
[2019-12-19] MEDS: lisinopriL 40 MG TAB PO SCH (11:14)
[2019-12-19] MEDS: KETOROLAC TROMETHAMINE 15 MG/ML VIAL IV SCH ×3 (11:14→22:04)
--- NOTE | 2019-12-19 14:00 | Anesthesiology Progress Note ---
Date of Service December 19, 2019 Anesthesia Post Procedure Vital Signs Vital Signs: Temp Pulse Pulse Resp BP Pulse Ox 12/19/19 12:29 36.2 C L 70 17 139/63 100 12/19/19 11:25 35.5 C L 67 15 143/70 H 100 12/19/19 10:26 36.3 C L 69 14 156/81 H 100 12/19/19 10:04 68 16 153/77 H 100 12/19/19 09:32 36.3 C L 67 16 150/69 H 99 12/19/19 09:15 36.3 C L 67 14 141/67 H 100 12/19/19 09:05 68 19 137/66 100 12/19/19 08:55 69 15 136/59 L 100 12/19/19 08:46 36.3 C L 70 16 132/59 L 99 12/19/19 06:10 73 20 180/88 H 99 12/19/19 05:47 36.8 C 80 18 105/80 99 Transfer of Care Handoff Completed per policy Notes Mental Status: alert / awake / arousable and participated in evaluation Patient Amnestic to Procedure: Yes Nausea / Vomiting: adequately controlled Pain: adequately controlled Airway Patency, RR, SpO2: stable & adequate BP & HR: stable & adequate Hydration State: stable & adequate Neuraxial Anesthesia: was administered and sensory block is resolving Anesthetic Complications: no major complications apparent and Pt Satisfied with anesthetic care
[2019-12-19] MEDS: ACETAMINOPHEN 500 MG TAB PO SCH ×2 (14:36→22:03)
[2019-12-19] MEDS: SODIUM CHLORIDE 0.9% 1000ML 1,000 ML IV SCH ×2 (14:40→22:28)
[2019-12-19] MEDS ORDERED: TRANEXAMIC ACID / 0.7% NACL 1,000 MG/100 ML BAG IV SCH (14:47)
[2019-12-19] MEDS: ceFAZolin 1000MG 1,000 MG/7.5 ML SYR IV SCH ×2 (15:34→22:03)
--- NOTE | 2019-12-19 15:54 | Progress Notes ---
DATE: 12/19/2019 SUBJECTIVE: A 79-year-old white female postop from a left hip replacement. She is doing well. Not having any pain yet. No chest pain or shortness of breath. Not feeling dizzy or lightheaded. OBJECTIVE: VITAL SIGNS: Temperature 36.5. Vital signs stable. GENERAL: Shows a pleasant elderly female. She is lying in bed, looks comfortable. She is awake, alert and oriented and appropriate. LUNGS: Clear to auscultation. HEART: Has a regular rate and rhythm. ABDOMEN: Soft, nontender, nondistended. EXTREMITIES: Grossly neurovascularly intact except as follows: Examination of the left hip and leg reveals the leg to be well aligned. Dressing is clean, dry and intact. Her thigh is soft and supple. She is neurologically intact. She can dorsiflex and plantarflex her foot appropriately. X-RAYS: X-rays of the left hip from recovery room were reviewed. It shows a left uncemented total hip arthroplasty. Components looked to be in good position. No signs of problems. ASSESSMENT: A 79-year-old white female postoperative from left hip replacement, doing well. Pain is controlled. Hip is located. She is neurologically intact. PLAN: 1. DVT prophylaxis including thigh-high TEDs, SCDs, and aspirin twice a day. 2. PT/OT. Weight bear as tolerated. Left total hip protocol. 3. Pain control, doing well with current pain regimen. 4. IV antibiotics x24 hours. 5. Disposition: Plan to discharge to home with some home health once adequately recovered and medically stable.
[2019-12-19] MEDS: FERROUS GLUCONATE 324 MG TAB PO SCH (17:55)
[2019-12-19] MEDS: ASCORBIC ACID 500 MG TAB PO SCH (17:55)
[2019-12-19] MEDS ORDERED: PRAVASTATIN SOD 40 MG TAB PO SCH (21:00)
[2019-12-19] MEDS ORDERED: SENNA 8.6 MG TAB PO SCH (21:00)
[2019-12-20] MEDS: ACETAMINOPHEN 500 MG TAB PO SCH (05:28)
[2019-12-20] MEDS: LEVOTHYROXINE SODIUM 75 MCG TABLET PO SCH (05:28)
[2019-12-20] MEDS: KETOROLAC TROMETHAMINE 15 MG/ML VIAL IV SCH ×2 (05:29→11:39)
[2019-12-20 06:10] LABS: Basophils # (auto) 0.01 K/uL (0-0.2); Basophils % (auto) 0.1 %; Eosinophils # (auto) 0.03 K/uL (0-0.5); Eosinophils % (auto) 0.4 %; Hemoglobin 10.8 g/dL (12.0-16.0); Immature Granulocytes # (auto) 0.01 K/uL (0.00-0.02); Immature Granulocytes % (auto) 0.1 %; Lymphocytes # (auto) 1.23 K/uL (1.2-3.4); Lymphocytes % (auto) 17.8 %; Mean Corpuscular Hemoglobin 28.9 pg (25-34); Mean Corpuscular Hgb Conc 32.7 g/dL (32-36); Mean Corpuscular Volume 88.2 fL (80-100); Mean Platelet Volume 9.1 fL (7.4-10.4); Monocytes # (auto) 0.67 K/uL (0.11-0.59); Monocytes % (auto) 9.7 %; Neutrophils # (auto) 4.95 K/uL (1.4-6.5); Neutrophils % (auto) 71.9 %; Platelet Count 208 K/uL (130-400); RDW Coefficient of Variation 12.8 % (11.5-14.5); RDW Standard Deviation 41.4 fL (36.4-46.3); Red Blood Count 3.74 M/uL (4.2-5.4)
[2019-12-20 06:38] LABS: BUN Creatinine Ratio 15.9 (10-20); Calcium 9.2 mg/dl (8.5-10.1); Creatinine Clr Calc Pharmacy 53.5 ml/min; Est GFR (African American) 87.7; Est GFR (Non-African American) 75.7; Potassium 3.1 mmol/L (3.5-5.1)
[2019-12-20] MEDS ORDERED: POTASSIUM CHLORIDE 20 MEQ TABCR PO ONE (07:35)
[2019-12-20] MEDS: CHLORTHALIDONE 25 MG TAB PO SCH (08:34)
[2019-12-20] MEDS: CALCIUM CARBONATE 1250MG TAB PO SCH (08:34)
[2019-12-20] MEDS: POTASSIUM CHLORIDE 20 MEQ TABCR PO SCH (08:34)
[2019-12-20] MEDS: lisinopriL 40 MG TAB PO SCH (08:34)
[2019-12-20] MEDS: FERROUS GLUCONATE 324 MG TAB PO SCH (08:34)
[2019-12-20] MEDS: GLUCOSAMINE SULFATE 500 MG CAP PO SCH (08:35)
[2019-12-20] MEDS: ASCORBIC ACID 500 MG TAB PO SCH (08:35)
[2019-12-20] MEDS: CHOLECALCIFEROL 1,000 UNITS 25 MCG TAB PO SCH (08:35)
[2019-12-20] MEDS: MULTIVITAMIN TAB PO SCH (08:35)
[2019-12-20] MEDS: ASPIRIN 81 MG ECTAB PO SCH (08:36)
[2019-12-20] MEDS: OMEGA-3 (PURIFIED FISH OIL) 1 GM CAP PO SCH (08:36)
--- NOTE | 2019-12-20 08:38 | Progress Notes ---
DATE: 12/20/2019 SUBJECTIVE: A 79-year-old white female postop day 1 from a left hip replacement. She is doing quite well. Really not having any pain yet. No chest pain or shortness of breath. Not feeling dizzy or lightheaded. OBJECTIVE: VITAL SIGNS: Temperature 36.8. Vital signs stable. GENERAL: Shows a pleasant elderly female. She was walking around her room with her walker this morning quite well. EXTREMITIES: Examination of left hip reveals the dressing to be clean, dry and intact. Leg lengths were equal. Hip is located. She is neurologically intact. LABORATORY DATA: Hemoglobin 10.8. Hematocrit 33.0. Electrolytes are stable. Potassium is little bit low at 3.1. ASSESSMENT: A 79-year-old white female postop day 1 from a left hip replacement, doing quite well. Pain is controlled. Hip is located. She is neurologically intact. Potassium is a bit low and we will supplement that. PLAN: 1. DVT prophylaxis including thigh-high TEDs, SCDs, and aspirin twice a day. 2. PT/OT. Weight bear as tolerated. Left total hip protocol. 3. Pain control, doing well with current pain regimen. 4. Disposition: Plan to discharge to home with some home health once medically stable. 5. Hypokalemia. We will supplement that today.
[2019-12-20] MEDS: DOCUSATE SODIUM 100 MG CAP PO SCH (08:43)
== END 2019-12-20 13:38 | disposition home health service (06) ==
LOC: ASU 05:04 → 3E 05:04

== ENCOUNTER 2023-04-28 17:33 | Inpatient (IN) ==
[2023-04-28 18:50] LABS: Albumin Level 4.3 gm/dl (3.4-5.0); Bilirubin,Total 0.4 mg/dl (0.2-1.0); Calcium 9.9 mg/dl (8.6-10.3); Magnesium 1.9 mg/dl (1.7-2.4); Potassium 3.6 mmol/L (3.5-5.1)
[2023-04-28 18:54] LABS: Basophils # (auto) 0.04 K/uL (0.00-0.20); Basophils % (auto) 0.6 %; Eosinophils # (auto) 0.11 K/uL (0.00-0.50); Eosinophils % (auto) 1.6 %; Hematocrit (blood only) 38.1 % (37.0-47.0); Hemoglobin 12.4 g/dl (12.0-16.0); Immature Granulocytes # (auto) 0.02 K/uL (0.01-0.20); Immature Granulocytes % (auto) 0.3 %; Lymphocytes # (auto) 1.58 K/uL (1.20-3.40); Lymphocytes % (auto) 22.6 %; Mean Corpuscular Hgb Conc 32.5 g/dL (32.0-36.0); Mean Platelet Volume 9.4 fL (9.4-12.4); Monocytes # (auto) 0.47 K/uL (0.11-0.59); Monocytes % (auto) 6.7 %; Neutrophils # (auto) 4.78 K/uL (1.40-6.50); Neutrophils % (auto) 68.2 %; Platelet Count 262 K/uL (130-400); RDW Coefficient of Variation 13.2 % (11.5-14.5); RDW Standard Deviation 42.8 fL (36.4-46.3); Red Blood Count 4.28 M/uL (4.20-5.40)
[2023-04-28 18:56] LABS: Albumin Globulin Ratio 1.1 (0.9-2); BUN Creatinine Ratio 21.1 (10-20); Creatinine Clr Calc Pharmacy 48.5 ml/min; Est GFR (Non-African American) 60.4 ml/min; Globulin 3.8 gm/dl (2.5-4.0); Total Protein 8.1 gm/dl (6.0-8.3)
--- NOTE | 2023-04-28 18:58 | XRay Report ---
XR chest 1V portable HISTORY: weakness COMPARISON: Chest 11/11/2022. FINDINGS: The lungs are clear. Cardiac silhouette is top normal in size. No pleural effusions. No pne umothorax. IMPRESSION: No acute process. ACT 112: Negative or not required by law. Electronically signed by: Yordan Osman M.D. 04/28/2023 6:57 PM
[2023-04-28 18:59] LABS: Acetaminophen < 3 ug/ml (10-30); Salicylate < 3.0 mg/dl (3.0-30)
[2023-04-28 19:01] LABS: Troponin I High Sensitivity 11.4 pg/ml (0-14)
[2023-04-28] MEDS: SODIUM CHLORIDE 0.9% 500 ML IV SCH (19:03)
[2023-04-28 19:10] LABS: Thyroid Stimulating Hormone 1.722 uIu/ml (0.300-4.500)
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
[2023-04-28 19:28] LABS: Appearance Urine Clear (Clear); Bacteria Urine Automated Negative (Negative); Bilirubin Urine Negative (Negative); Blood Urine Negative (Negative); Color Urine Yellow; Glucose Urine UA Negative (Negative); Ketones Urine Negative (Negative); Leukocyte Esterase Urine Trace (Negative); Nitrite Urine Negative (Negative); Protein Urine Trace (Negative); Specific Gravity Urine 1.016 (1.000-1.030); Urobilinogen Urine Negative (Negative)
--- NOTE | 2023-04-28 20:00 | CT Scan Report ---
Exam(s): CT HEAD Without Contrast EXAM: CT Head Without Intravenous Contrast CLINICAL HISTORY: Altered mental status. TECHNIQUE: Axial computed tomography images of the head/brain without intravenous contrast. CTDI is 35.51 mGy and DLP is 625.8 mGy-cm. Automated exposure control was utilized for the study. A dose lowering technique was utilized adhering to the principles of ALARA. COMPARISON: CT head 11/11/2022 FINDINGS: Brain: No intracranial hemorrhage, mass-effect or midline shift. No abnormal extra axial fluid. No evidence of acute infarct. Moderate periventricular white matter hypodensities are most consistent with chronic microangiopathy. Ventricles: Unremarkable. No ventriculomegaly. Bones/joints: Unremarkable. No acute fracture. Soft tissues: Unremarkable. Sinuses: Complete opacification of the left maxillary sinus and ethmoid sinus is concerning for chronic sinusitis. Mastoid air cells: Unremarkable as visualized. No mastoid effusion. IMPRESSION: No acute intracranial finding. Electronically signed by: Kassy Jain MD 04/28/23 19:59 PM
[2023-04-28 20:02] LABS: Amphetamines+Metham, Urine Neg (Neg); Barbiturates, Urine Neg (Neg); Benzodiazepine, Urine Neg (Neg); Cocaine, Urine Neg (Neg); MDMA (Ecstacy), Urine Neg (Neg); Marijuana, Urine Neg (Neg); Methadone, Urine Neg (Neg); Opiate, Urine Neg (Neg); Phencyclidine, Urine Neg (Neg)
[2023-04-28] MEDS: LABETALOL HCL IV 5 MG/ML 20ML IV STA (22:15)
[2023-04-28] MEDS ORDERED: HALOPERIDOL LACTATE 5 MG/ML 1 ML VIAL IM PRN (22:41)
--- NOTE | 2023-04-28 23:01 | History & Physical Report ---
Date of Service April 28, 2023 Assessment & Plan (1) Asymptomatic hypertensive urgency: Plan: Secondary to agitation/anxiety Worsening dementia hyperlipidemia, on statin Rx hypothyroidism, euthyroid as of today's TSH Episodic suicidality, patient currently denies thoughts/intent Medical telemetry Add amlodipine to lisinopril if with persistent BP elevation Delirium precautions Zyprexa as needed agitation not controlled by behavioral measures Psych consult re: episodic suicidality Social service re: placement DVT prophylaxis. Lovenox subcu Full code Patient son requesting updates providers. Mr. Milton Westfall, contact #[phone]. Text document was generated using [employer] recognition software. It may contain grammatical or spelling errors. Kindly contact undersigned for clarification of any documentation item in question. History of Present Illness Chief Complaint: Worsening dementia as per family I have problems as per patient Primary Care Provider: Rose Egan, History obtained from patient, family, and records. Limited history from patient secondary to dementia. Medical history significant for hypertension, hyperlipidemia, PVD, hypothyroidism, dementia, anxiety disorder, glaucoma. Last confinement December 2019 under Orthopedics service for elective left hip surgery. Patient with worsening dementia/forgetfulness since 2021. Increased irritability and outbursts as per family. Family had been discussing possible placement recently. Recent [facility] neurology visit 3 weeks ago. Provider recommended stopping donepezil and switching to Exelon patch due to diarrhea symptoms from the on physical. Consider addition of memantin. Continue Lexapro for agitation anxiety, consider addition of Seroquel and Abilify as needed.as per documentation. Tonight, patient became combative and struck her . Patient verbalized that she wanted to kill herself. Patient brought to the ER for evaluation. Patient denies headache, chest pain, SOB, abdominal pain. Patient currently denies suicidality. Initial SBP at the ER 180s. Medical History as above Surgical History : Hip surgery, tonsillectomy/adenoidectomy, cataract surgeries Family History : Heart disease, dementia Personal/Social history : Non-smoker, no EtOH intake, retired grocery employee Allergies Allergy/AdvReac Type Severity Reaction Status Date / Time naproxen Allergy Mild ITCH Verified 04/28/23 22:35 PAIN MEDICATION Allergy Intermediate Hallucinati Uncoded 11/11/22 12:50 ng Home Medications Medication Instructions Recorded Confirmed Type chlorthalidone 25 mg tablet 25 mg PO QAM 02/03/18 04/28/23 History levothyroxine 75 mcg tablet 75 mcg PO DAILYBB 02/03/18 04/28/23 History lisinopril 40 mg tablet 40 mg PO QAM 02/03/18 04/28/23 History potassium chloride 20 mEq 20 meq PO BID 02/03/18 04/28/23 History tablet,extended release pravastatin 40 mg tablet 40 mg PO DAILY 02/03/18 04/28/23 History fluticasone propionate 50 2 sprays intranasal DAILY PRN 03/21/19 04/28/23 History mcg/actuation nasal Allergy Symptoms spray,suspension (Flonase Allergy Relief) calcium carbonate 600 mg calcium 600 mg PO QAM 11/07/19 04/28/23 History (1,500 mg) tablet (Calcium) glucosamine sulfate 1,000 mg 1,000 mg PO QAM 11/07/19 04/28/23 History capsule omega-3 fatty acids-fish oil 684 1 cap PO QAM 11/07/19 04/28/23 History mg-1,200 mg capsule,delayed release donepezil 10 mg tablet (Aricept) 10 mg PO QDB 10/01/21 04/28/23 History latanoprost 0.005 % eye drops 1 drp OPB QPM 10/01/21 04/28/23 History aspirin 81 mg tablet,delayed 81 mg PO QAM 04/28/23 04/28/23 History release cholecalciferol (vitamin D3) 25 25 mcg PO BID 04/28/23 04/28/23 History mcg (1,000 unit) capsule (Vitamin D3) escitalopram oxalate 20 mg tablet 20 mg PO QAM 04/28/23 04/28/23 History vitamin E 670 mg (1,000 unit) 670 mg PO BID 04/28/23 04/28/23 History capsule Past Med/Surg History Medical History Encounter for pre-operative examination Tremor RT HAND 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 (HAD ISSUES WITH PASSAGE INTO KIDNEY- DRANK INCREASED WATER AND ISSUES IMPROVED (KIDNEY FUNCTION WNL CURRENTLY) Hypothyroidism Hypertension Hyperlipidemia Surgical History Status post total hip replacement, left History of anesthesia reaction History of carpal tunnel release History of total hip arthroplasty Fusion of spine History of colonoscopy History of tooth extraction History of tonsillectomy History of cataract surgery Family History Mother Family history of diabetes mellitus Father Family history of diabetes mellitus Denies family history of Ovarian cancer Breast cancer Colorectal cancer Social History Smoking Status: Never smoker Second Hand Exposure: Yes; Do You Dip or Chew Tobacco: No; Hx Alcohol Use: No Hx Substance Use: No Preferred Language: Croatian Communication Ability: Effective Birdcage Assembler Required: No Beliefs That Will Affect Care: None marital status: Current Living Situation: Spouse Current Living Situation Comment: daughter checks on them daily Feels Safe at Home: Yes Safety Concerns: Feels Safe At This Time Gender Identity: Female Assistive Devices: Walker Review of Systems Review of Systems: Could not be reliably obtained secondary to dementia Physical Exam Physical Exam: GENERAL: demented, pleasant, no respiratory distress SKIN: Normal color, warm HEENT: Twilight palpebral conjunctivae, no ptosis, dry buccal mucosa NECK : Supple, no tenderness CHEST : CTA, no tenderness HEART : RRR, no obvious murmurs ABDOMEN: Some distention, nontender EXTREMITIES : No LE swelling/tenderness, no other conspicuous deformities noted NEUROLOGIC : Demented, no facial asymmetry occasional rest tremors, gait and stance not assessed Results & Data Results & Data Vital Signs (Past 12 Hours) Vital Signs Temp Pulse Pulse Resp BP BP Pulse Ox 04/28/23 22:18 65 04/28/23 22:15 66 180/103 H 04/28/23 20:00 84 18 182/105 H 95 04/28/23 18:47 82 98 04/28/23 17:37 36.6 C 77 18 187/85 H 96 O2 Del Method 04/28/23 22:18 04/28/23 22:15 04/28/23 20:00 Room Air 04/28/23 18:47 04/28/23 17:37 Room Air Laboratory Results Laboratory Results WBC 7.00 K/ul (4.8-10.8) 04/28/23 17:46 RBC 4.28 M/uL (4.20-5.40) 04/28/23 17:46 Hgb 12.4 g/dl (12.0-16.0) 04/28/23 17:46 Hct 38.1 % (37.0-47.0) 04/28/23 17:46 MCV 89.0 fL (80.0-100.0) 04/28/23 17:46 MCH 29.0 pg (25.0-34.0) 04/28/23 17:46 MCHC 32.5 g/dL (32.0-36.0) 04/28/23 17:46 RDW Std Deviation 42.8 fL (36.4-46.3) 04/28/23 17:46 RDW Coeff of Elan 13.2 % (11.5-14.5) 04/28/23 17:46 Plt Count 262 K/uL (130-400) 04/28/23 17:46 MPV 9.4 fL (9.4-12.4) 04/28/23 17:46 Immature Gran % (Auto) 0.3 % 04/28/23 17:46 Neut % (Auto) 68.2 % 04/28/23 17:46 Lymph % (Auto) 22.6 % 04/28/23 17:46 Riley % (Auto) 6.7 % 04/28/23 17:46 Eos % (Auto) 1.6 % 04/28/23 17:46 Baso % (Auto) 0.6 % 04/28/23 17:46 Neut # (Auto) 4.78 K/uL (1.40-6.50) 04/28/23 17:46 Lymph # (Auto) 1.58 K/uL (1.20-3.40) 04/28/23 17:46 Riley # (Auto) 0.47 K/uL (0.11-0.59) 04/28/23 17:46 Eos # (Auto) 0.11 K/uL (0.00-0.50) 04/28/23 17:46 Baso # (Auto) 0.04 K/uL (0.00-0.20) 04/28/23 17:46 Immature Gran # (Auto) 0.02 K/uL (0.01-0.20) 04/28/23 17:46 Sodium 139 mmol/L (136-145) 04/28/23 17:46 Potassium 3.6 mmol/L (3.5-5.1) 04/28/23 17:46 Chloride 103 mmol/L (98-107) 04/28/23 17:46 Carbon Dioxide 28 mmol/L (21-32) 04/28/23 17:46 Anion Gap 8 (3-11) 04/28/23 17:46 BUN 19 mg/dl (6-23) 04/28/23 17:46 Creatinine 0.90 mg/dl (0.6-1.2) 04/28/23 17:46 Est Cr Clr Drug Dosing 48.5 ml/min 04/28/23 17:46 Est GFR ( Amer) 70.0 ml/min 04/28/23 17:46 Est GFR (Non-Af Amer) 60.4 ml/min 04/28/23 17:46 BUN/Creatinine Ratio 21.1 (10-20) H 04/28/23 17:46 Glucose 97 mg/dl (70-99(Fasting)) 04/28/23 17:46 Calcium 9.9 mg/dl (8.6-10.3) 04/28/23 17:46 Magnesium 1.9 mg/dl (1.7-2.4) 04/28/23 17:46 Total Bilirubin 0.4 mg/dl (0.2-1.0) 04/28/23 17:46 AST 20 U/L (13-39) 04/28/23 17:46 ALT 7 U/L (7-52) 04/28/23 17:46 Alkaline Phosphatase 63 U/L (34-104) 04/28/23 17:46 Troponin I High Sens 11.4 pg/ml (0-14) 04/28/23 17:46 Total Protein 8.1 gm/dl (6.0-8.3) 04/28/23 17:46 Albumin 4.3 gm/dl (3.4-5.0) 04/28/23 17:46 Globulin 3.8 gm/dl (2.5-4.0) 04/28/23 17:46 Albumin/Globulin Ratio 1.1 (0.9-2) 04/28/23 17:46 TSH 1.722 uIu/ml (0.300-4.500) 04/28/23 17:46 Urine Color Yellow 04/28/23 19:10 Urine Appearance Clear (Clear) 04/28/23 19:10 Urine pH 7.0 (4.5-7.5) 04/28/23 19:10 Ur Specific [place] 1.016 (1.000-1.030) 04/28/23 19:10 Urine Protein Trace (Negative) H 04/28/23 19:10 Urine Glucose (UA) Negative (Negative) 04/28/23 19:10 Urine Ketones Negative (Negative) 04/28/23 19:10 Urine Blood Negative (Negative) 04/28/23 19:10 Urine Nitrite Negative (Negative) 04/28/23 19:10 Urine Bilirubin Negative (Negative) 04/28/23 19:10 Urine Urobilinogen Negative (Negative) 04/28/23 19:10 Ur Leukocyte Esterase Trace (Negative) H 04/28/23 19:10 Urine WBC (Auto) 5-10 /hpf (0-5) H 04/28/23 19:10 Urine RBC (Auto) 5-10 /hpf (0-4) H 04/28/23 19:10 U Hyaline Cast (Auto) 1-5 /lpf (0-5) 04/28/23 19:10 U Epithel Cells (Auto) 10-20 /lpf (0-5) H 04/28/23 19:10 Urine Bacteria (Auto) Negative (Negative) 04/28/23 19:10 Urine Yeast Not Reportable 04/28/23 19:10 Salicylates < 3.0 mg/dl (3.0-30) L 04/28/23 17:46 Urine Opiates Screen Neg (Neg) 04/28/23 19:10 Ur Methadone, Qual Neg (Neg) 04/28/23 19:10 Acetaminophen < 3 ug/ml (10-30) L 04/28/23 17:46 Urine Barbiturates Neg (Neg) 04/28/23 19:10 Ur Phencyclidine (PCP) Neg (Neg) 04/28/23 19:10 U Amphetamin/Meth Scrn Neg (Neg) 04/28/23 19:10 MDMA (Ecstasy) Screen Neg (Neg) 04/28/23 19:10 U Benzodiazepines Scrn Neg (Neg) 04/28/23 19:10 Ur Cocaine Metabolite Neg (Neg) 04/28/23 19:10 U Marijuana (THC) Screen Neg (Neg) 04/28/23 19:10 Ethyl Alcohol mg/dL < 10.0 mg/dl (<10.0) 04/28/23 17:46 Impressions Chest X-Ray 04/28/23 18:33 XR chest 1V portable HISTORY: weakness COMPARISON: Chest 11/11/2022. FINDINGS: The lungs are clear. Cardiac silhouette is top normal in size. No pleural effusions. No pneumothorax. IMPRESSION: No acute process. ACT 112: Negative or not required by law. Electronically signed by: Yordan Osman M.D. 04/28/2023 6:[address] 04/28/23 18:33 Exam(s): CT HEAD Without Contrast EXAM: CT Head Without Intravenous Contrast CLINICAL HISTORY: Altered mental status. TECHNIQUE: Axial computed tomography images of the head/brain without intravenous contrast. CTDI is 35.51 mGy and DLP is 625.8 mGy-cm. Automated exposure control was utilized for the study. A dose lowering technique was utilized adhering to the principles of ALARA. COMPARISON: CT head 11/11/2022 FINDINGS: Brain: No intracranial hemorrhage, mass-effect or midline shift. No abnormal extra axial fluid. No evidence of acute infarct. Moderate periventricular white matter hypodensities are most consistent with chronic microangiopathy. Ventricles: Unremarkable. No ventriculomegaly. Bones/joints: Unremarkable. No acute fracture. Soft tissues: Unremarkable. Sinuses: Complete opacification of the left maxillary sinus and ethmoid sinus is concerning for chronic sinusitis. Mastoid air cells: Unremarkable as visualized. No mastoid effusion. IMPRESSION: No acute intracranial finding. Electronically signed by: Kassy Jain MD 04/28/23 19:59 PM
[2023-04-28] MEDS ORDERED: PROMETHAZINE HCL 6.25 MG in SODIUM CHLORIDE 0.9% 50 ML IV PRN (23:10)
[2023-04-29] MEDS ORDERED: ACETAMINOPHEN 325 MG TAB PO PRN (01:39)
[2023-04-29] MEDS ORDERED: FLUTICASONE PROPIONATE NA SPR 16 GM BTL PRN (01:39)
[2023-04-29] MEDS ORDERED: OLANZapine 10 MG/2.1 ML SDV IM PRN (02:03)
[2023-04-29] MEDS: LATANOPROST 0.005% OP SOLN 2.5 ML BTL OPB SCH (02:49)
[2023-04-29] MEDS: lisinopril 40 MG TAB PO STA (02:49)
[2023-04-29] MEDS: amLODIPine BESYLATE 5 MG TAB PO SCH ×2 (05:29→10:06)
[2023-04-29] MEDS: LEVOTHYROXINE SODIUM 75 MCG TABLET PO SCH (05:31)
[2023-04-29 07:48] LABS: Basophils # (auto) 0.04 K/uL (0.00-0.20); Basophils % (auto) 0.6 %; Eosinophils # (auto) 0.12 K/uL (0.00-0.50); Eosinophils % (auto) 1.8 %; Hemoglobin 11.5 g/dl (12.0-16.0); Immature Granulocytes # (auto) 0.01 K/uL (0.01-0.20); Immature Granulocytes % (auto) 0.2 %; Lymphocytes # (auto) 2.51 K/uL (1.20-3.40); Lymphocytes % (auto) 38.1 %; Mean Corpuscular Hemoglobin 29.5 pg (25.0-34.0); Mean Corpuscular Hgb Conc 33.8 g/dL (32.0-36.0); Mean Corpuscular Volume 87.2 fL (80.0-100.0); Mean Platelet Volume 9.6 fL (9.4-12.4); Monocytes # (auto) 0.54 K/uL (0.11-0.59); Monocytes % (auto) 8.2 %; Neutrophils # (auto) 3.37 K/uL (1.40-6.50); Neutrophils % (auto) 51.1 %; Platelet Count 234 K/uL (130-400); RDW Coefficient of Variation 13.2 % (11.5-14.5); RDW Standard Deviation 41.6 fL (36.4-46.3); White Blood Count 6.59 K/ul (4.8-10.8)
[2023-04-29] MEDS: DONEPEZIL HCL 10 MG TAB PO SCH (08:12)
[2023-04-29] MEDS: ESCITALOPRAM OXALATE 20 MG TAB PO SCH (08:12)
[2023-04-29] MEDS: ASPIRIN 81 MG ECTAB PO SCH (08:13)
[2023-04-29] MEDS: PRAVASTATIN SOD 40 MG TAB PO SCH (08:13)
[2023-04-29] MEDS ORDERED: lisinopril 40 MG TAB PO SCH (09:00)
[2023-04-29] MEDS: ENOXAPARIN INJ 30 MG/0.3 ML SYR SQ SCH (10:13)
--- NOTE | 2023-04-29 15:42 | Hospitalist Progress Note ---
Date of Service April 29, 2023 Assessment & Plan (1) Asymptomatic hypertensive urgency: Plan: Hypertensive urgency Amlodipine 5 mg p.o. daily started Continue usual lisinopril Monitor closely Dementia with behavioral disturbance Psychiatry service consulted Recommended as needed Zyprexa for agitation Will need placement as patient exhibiting worsened aggressive behavior at home Patient is medically stable for transfer to facility and bed search can be initiated today hyperlipidemia, on statin Rx hypothyroidism, euthyroid Episodic suicidality, patient currently denies thoughts/intent DVT prophylaxis. Lovenox subcu Full code plan of care discussed with patient and her son Milton at the bedside in detail and at length all questions answered They are understanding, agreeable, comfortable with the plan of care Admission and Anticipated Discharge Date Admission Date: April 28, 2023 Subjective Follow-up with dementia with behavioral disturbance, etc. Discussed with RN, no agitation or combative behavior noted overnight Seen resting in bedside chair, comfortable, very pleasant, calm, cooperative Oriented x 2 Answering most questions appropriately States that she feels fine overall no chest pain, dyspnea, palpitations, dizziness No headache, dizziness, nausea or vomiting, chest pain, shortness of breath, cough, abdominal pain, nausea vomiting problems with urination or bowel movement No other new symptoms Review of Systems Review of Systems: all noted and negative except for above Physical Exam Physical Exam: General- oriented x 2, not in distress, speaks in sentences with no effort or accessory muscle use Eyes- anicteric Neck- no JVD Lungs- clear breath sounds bilaterally, no rales/wheezes Heart- normal rate, regular rhythm; no murmurs Abdomen- normal bowel sounds, nondistended, soft, nontender Extremities- no pretibial edema, no calf tenderness Neuro- alert, oriented x 2; no gross focal neurologic deficits Skin- warm & dry Results & Data Results & Data Vital Signs (Past 12 Hours) Vital Signs Temp Pulse Pulse Resp BP BP Pulse Ox 04/29/23 11:47 37 C 62 17 134/80 95 04/29/23 09:00 61 04/29/23 07:45 36.7 C 76 17 185/91 H 97 04/29/23 05:09 156/72 H 04/29/23 04:00 36.6 C 58 L 14 179/75 H 91 O2 Del Method 04/29/23 11:47 Room Air 04/29/23 09:00 02/23/24 07:45 Room Air 04/29/23 05:09 04/29/23 04:00 Room Air all noted and reviewed including below
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
--- NOTE | 2023-04-29 17:06 | Electrocardiogram Report ---
Test Reason : Blood Pressure : / mmHG Vent. Rate : 056 BPM Atrial Rate : 056 BPM P-R Int : 204 ms QRS Dur : 092 ms QT Int : 470 ms P-R-T Axes : 069 022 052 degrees QTc Int : 453 ms Sinus bradycardia Otherwise normal ECG When compared with ECG of 11-NOV-2022 09:45, No significant change was found Confirmed by Basilio Kaminski ([id number]) on 04/29/2023 5:05:45 PM Referred By: REFERRED SELF Confirmed By:Beto Kaminski
--- OUTSIDE RECORDS SUMMARY | 2023-04-29 22:45 | External Medical Summary | Summary of Care ---
Author Name Unknown Organization [facility] Address [address] [place] [address] Phone [phone] Care Team Providers Care Family Worker Name Role Phone Rose Egan DO Primary Care Provider [phone] Reason for Visit * Reason Comments Return Neuro * Evaluate & Treat - Unlimited Visits (Within 10 days (routine)) - Authorized Specialty Diagnoses / Procedures Referred By Lani t Referred To Contact Neurology Diagnoses Dementia without behavioral disturbance (HCC) Rose Egan DO [address] [place] [address] Referral ID Status Reason Start Date Expiration Date Visits Requested Visits Authorized [id number] Authorized Specialty Services Required 10/06/[phone] Encounter Details Date Type Department Care Team (Late st Contact Info) Description 04/08/2023 2:40 PM EST Office Visit Neurology [facility] [address] [place] [address] Nataliya Ward CRNP [address] [place] [address] Moderate dementia with other behavioral disturbance, unspecified dementia type (HCC)*; Primary open-angle glaucoma, bilateral, mild stage; Anxiety Allergies Active Allergy Reactions Criticality Noted Date Comments Naproxen 05/03/2003 edema and wt gain documented as of this encounter (statuses as of 04/13/2023) Medications Medication Sig Dispensed Refills Start Date End Date Status VITAMIN E CAPS 1000 IU OR 2 times a day. 0 09/04/2001 Active FISH OIL 1000 MG PO CAPS 1 Daily 0 Active CALCIUM 600 MG PO TABS 1 daily 0 Active VITAMIN D 1000 UNITS PO CAPSIndications:Ost eoporosis One capsule twice daily 180 Cap 1 04/19/2014 Active Aspirin 81 MG Tablet Take 1 Tablet by mouth in the morning. 0 11/15/2014 Active Glucosamine Sulfate 1000 MG Oral Capsule 1,000 mg. 0 11/07/2019 Active Fluticasone Propionate 50 MCG/ACT Nasal SuspensionIndicatio ns:Allergy to environmental factors two sprays each nostril once daily- as needed for allergies 3 Each 3 08/31/2021 Active Levothyroxine Sodium 75 MCG Oral Tablet (Levoxyl)Indication s:Hypothyroidism, unspecified type TAKE 1 TABLET BY MOUTH DAILY AT LEAST 30 MINUTES PRIOR TO FIRST MEAL OF THE DAY OR OTHER MEDICATIONS 90 Tablet 3 08/30/2022 08/30/2023 Active Pravastatin Sodium 40 MG Oral Tablet (Pravachol)Indicati ons:Dyslipidemia, goal LDL below 100 TAKE ONE TABLET BY MOUTH EVERY DAY 90 Tablet 3 03/17/2022 05/24/2023 Active Latanoprost 0.005 % Ophthalmic Solution (Xalatan) INSTILL ONE DROP INTO EACH EYE EVERY EVENING 10 mL 3 03/11/2022 05/02/2023 Active Chlorthalidone 25 MG Oral Tablet (Hygroton) TAKE ONE TABLET BY MOUTH EVERY DAY IN THE MORNING 100 Tablet 1 09/16/2022 Active Lisinopril 40 MG Oral TabletIndications:H TN, goal below 150/90 TAKE ONE TABLET BY MOUTH EVERY DAY 90 Tablet 1 02/08/2023 02/08/2024 Active Potassium Chloride Kristy ER 20 MEQ Oral Tablet Extended ReleaseIndications: HTN, goal below 150/90 TAKE ONE TABLET BY MOUTH TWICE A DAY WITH FOOD 180 Tablet 1 02/22/2023 Active Donepezil HCl 10 MG Oral Tablet (Aricept) Take 1 Tablet by mouth in the morning. Take with breakfast.. 100 Tablet 2 02/23/2023 Active Escitalopram Oxalate 20 MG Oral Tablet (Lexapro)Indication s:Mood disturbance Take 1 Tablet by mouth in the morning. 90 Tablet 3 03/17/2023 Active documented as of this encounter (statuses as of 04/13/2023) Active Problems Problem Noted Date Diagnosed Date Moderate dementia 04/11/2023 Anxiety 04/11/2023 Other specified peripheral vascular diseases Age-related osteoporosis wit hout current pathological fracture 06/18/2022 Primary open-angle glaucoma, bilateral, mild sta ge 05/26/2021 Hypothyroidism due to acquired atrophy of thyroi d 06/18/2015 HTN, goal below 150/90 02/12/2014 Dyslipidemia, goal LDL below 100 07/16/2010 ADVANCE DIRECTIVE INFORMATION 01/07/2006 Overview: Yes, Patient instructed to provide copy of advance directive for provider to review and to be scanned into Electronic Medical Record Displacement of lumbar inter vertebral disc without myelopathy 09/22/2003 documented as of this encounter (statuses as of 04/13/2023) Resolved Problems Problem Noted Date Diagnosed Date Resolved Date Dementia without behavioral disturbance 06/18/2022 04/11/2023 Dementia without behavioral disturbance 06/18/2022 04/11/2023 Other specified peripheral vascular diseases 04/11/2020 Encounter for examination fo r normal comparison and control in clinical research program 01/09/2018 01/31/2018 Overview: [facility] DETECT Study: Project # [id number], Chemistry Department Chair: Ang Rangel, PhD. SUMMARY: Goal: Establish test characteristics (sensitivity, specificity, PPV, NPV) of a circulating tumor DNA (ctDNA)-based test for cancer. Hypothesis: Circulating tumor DNA (ctDNA) and elevated protein biomarkers (together, the marker panel) can be detected in asymptomatic individuals with early cancer. Specific Aim 1: Determine the prevalence of a positive marker panel test in a prospective clinical cohort of 10,000 asymptomatic women ages 65 to 75 years. Specific Aim 2: Determine the sensitivity, specificity, positive predictive value (PPV) and negative predictive value (NPV) of a marker panel test to identify histologically proven cancers that develop within 5-years of the marker panel evaluation. CONTACTS: During normal business hours, contact study staff at ; after hours Chemistry Department Chair via the [facility] hospital feeder operator . Diagnosis changed due to Research Module. Go to Snapshot for study details. Lyme disease 08/10/2016 02/01/2017 Acute serous otitis media 05/06/2009 Dyslipidemia, goal to be determined 02/20/2009 07/08/2009 Overview: Per Lipid Taxonomy. Hypopotassemia 03/26/2002 01/15/2010 Allergic rhinitis 08/14/1998 09/24/2019 Overview: Acute. Mixed dyslipidemia 04/24/1998 9 Overview: Per Lipid Taxonomy. Hypothyroidism 03/21/1997 07/13/2016 HTN, goal below 140/90 03/14/199702/12 MENOPAUSE - 1991 07/13/2016 documented as of this encounter (statuses as of 04/13/2023) Immunizations Name Administration Dates Next Due COVID-19 mRNA, LNP-s, No Pre serve, 2-Dose Series (Moderna) 04/30/2020,04/07/2020 Pneumococcal Conjugate Vacc, 13 Valent (Prevnar) 11/20/2014 Pneumococcal Polysaccharide PPV23 (Pneumovax) 01/19/2008 Seasonal Influenza Virus Vac cine, Unspecified Formulation 01/12/2016 Seasonal Influenza, Quadriva lent, No Preserve, IM 01/12/2016 Seasonal Influenza, Split, I IV3, With Preserve, Inj 11/20/2014 TD, Preservative Free 01/15/2010,08/14/1999,03/1989 TDAP (age 10 and older)(Boostrix) 07/06/2012 Varicella Zoster Vaccine (Adult) 02/25/2010 Zoster Vaccine Recombinant (Shingrix) 12/06/2018 ,10/03/2018 documented as of this encounter Social History Tobacco Use Types Packs/Day Years Used Date Smoking Tobacco: Never Smokeless Tobacco: Never Alcohol Use Standard Drinks/Week Comments No 0 (1 standard drink = 0.6 oz pur e alcohol) PHQ-2 Answer Date Recorded PHQ Adult Total Score 5 02/16/2023 Hunger Vital Sign Answer Date Recorded Within the past 12 months, y ou worried that your food would run out before you got the money to buy more. Never true 04/26/19 23 Within the past 12 months, t he food you bought just didn't last and you didn't have money to get more. Never true 04/26/2022 Sex and Gender Information Value Date Recorded Sex Assigned at Female 08/04/2018 8:00 AM EDT Gender Identity Female 08/04/2018 8:00 AM EDT Sexual Orientation Straight 08/04/2018 8: 00 AM EDT Job Start Date Occupation Industry Not on file Not on file Not on file documented as of this encounter Last Filed Vital Signs Vital Sign Reading Time Taken Comments Blood Pressure 144/76 04/08/2023 2:32 PM EST Pulse 73 04/08/2023 2:32 PM EST Temperature 36.8 C (98.3 F) 04/08/2023 2:32 PM ES T Respiratory Rate 16 04/08/2023 2:32 PM EST Oxygen Saturation 98% 04/08/2023 2:32 PM EST Inhaled Oxygen Concentration - - Weight 64.9 kg (143 lb) 04/08/2023 2:32 PM EST Height - - Body Mass Index 27.02 11/25/2021 4:01 PM EDT documented in this encounter Patient Instructions * Patient Instructions* Nataliya Ward CRNP - 04/08/2023 3:32 PM EST Images from the original note were not included. Lets switch from donepezil pill to Rivastigmine patch. Stop donepezil and start Rivastigmine patch 4.6 mg/24 hours daily. Continue Lexapro as ordered. Location Devices to Track Loved Ones Who Wander Here is a list of lifesaving location devices for seniors with Alzheimers or dementia who wander: 1.?AngelSense Dine inse provides caregivers a comprehensive view of their loved ones activities, comings?and?ang. The device attaches to a loved ones clothing and can only be removed by the caregiver. Itprovides a daily timeline of locations, routes and transit speed and sends an instant alert to caregivers if their loved one is in an unfamiliar place. Caregivers can listen in to hear what is happening around their loved one, can receive an alert if their loved one has not left for an appointment on time, allows caregivers to communicate with their loved one, and sends an alarm to locate your loved one - wherever they are. Website: https://www.angelsense.com/protect/dementia/ 2.?GPS Smart Sole Similar to the GPS Shoe and from the same designers, the GPS Smart Sole fits into most shoes and allows caregivers to track their loved one from any smartphone, tablet or web browser. The shoe insertis enabled with GPS technology and allows real-time syncing, a detailed report of location history,and allows users to set up a safe radius for their loved one. Website: http://[employer]Deutsche Startupssole/ 3.?Amminexaq iTraq?is a tracking device that can be used to track pretty much anything - from loved ones to luggage, this tracker pairs with an cayla on a smartphone to find anyone and anything. For seniors, the device includes a motion or fall sensor and will send an alert if a fall is detected. It also has a temperature sensor. Their newest device, the iTraq Destiney is marketed as the [employer] smallest all-in-one tracking device that has global tracking, two months battery life, is water and dust resistant isable to be charged wirelessly. The device also has an SOS button that will send an instant alert tofriends and family, notifying them of their loved ones precise location. Website: https://www.[employer].41st Parameter/?kpxs=[email or web address]&gclid=[email or web address] Az1EAAYASAAEgJimPD_BwE 4.?MedicAlert Safely Home This device was originally created to help emergency responders treat patients who could not speak for themselves. Today, the device also helps people with dementia who wander. The device is worn as a bracelet and when a loved one goes missing, caregivers can call the police and have the police call the 24-hour hotline to get the location of the missing person. Caregivers can also call the hotline themselves to get information. In addition to a tracking device, the bracelet has important medical information engraved upon it. https://alzheimer.ca/en/Home/Kauikj-eopb-qhlskcze/Mth-zg-clq-living/Safety/Safel y-Home 5.?i7 Networksil i7 Networksil offers two lifesaving devices, one is a location device, the other is an alarm. The alarm allows the user to alert a [facility] response center in case of a fall or other emergency. The tub chucker device is specifically designed for people with dementia or other?cognitive?disabilities. The simple device works as a pendant that can be put in a bag or pocket and allows caregivers to track the user online at any time. Caregivers can also set a radius for the user and will be alerted if the person travels outside that zone. Website: http://www.[facility]/ 6.?PocketFinder PocketTRUSTe was founded in 2004 by a single parent who wanted to know the whereabouts of his youngson, especially when he wasnt there. Their slogan, If you love it, locate it! sums up their philosophy and service offerings. Tracking everything from luggage to pets to children to seniors,the company offers?a wide range of emerging technological products. FansUniteder is designed to be the smallest tracker on the market and the device can fit in the palm of your hand. It has a batterylife up to one week and allows caregivers to track wearers through a user-friendly cayla. The device was updated in March 2016 and now includes three location technologies including GPS, Cell ID and Google Wi-Fi Touch. It also now has an SOS button. Website: https://Smartmarket/ 7.?Project Going The mission of Hexagram [employer] is to provide timely response to save lives and reduce potential injury for adults and children who wander due to Alzheimers, autism and other related conditionor disorders. Seniors who are enrolled in [employer] are given a personal transmitter that they wear around their ankle. If they wander, the caregiver calls a local Hex[employer] 49 agencyand a trained team will respond. Recovery times average 30 minutes and many who wander are found within a few miles of their home. In addition to the location device, [employer] works with public safety agencies to train them on the risks associated with wandering. Website: https://[employer].org/ 8.?Revolutionary Tracker Revolutionary Tracker has?location-based?systems to keep tabs on seniors who may wander. The company strives to bring an unparalleled level of functionality, capability, ease of use and relevant presentation of information to give people the ability to extend communication, knowledge, protection?and?care for their loved ones. Their GPS enabled personal tracker features an SOS button for emergencies and offers real-time tracking. This device allows multiple seniors to be tracked at the same time and syncs directly to a caregivers?smart phone?or computer. Website: https://ptvj12272.Ofuz/website 9.?Safe Link Safe Link is another GPS tracking system available for people with Alzheimers or dementia. The product promises to increase safety for the elderly, promote independent living and ultimately lead to a healthier lifestyle. Safe Link is a small device carried by the person who may wander. Thedevice periodically sends its geographic coordinates to central servers and family members and careg sindhu can view the wearers location via?website. The device needs to be charged and worn at all times. All devices have an SOS button for emergencies. 10.?Trax Trax is touted as the worlds smallest and lightest live GPS tracker. The device sends position, speed, and direction through the cellular network directly to your cayla on a smartphone. Trax comes with a clip that is easy to attach to a loved one. The cayla allows caregivers to set Geofences and will send an alert if a loved one enters or leaves a predetermined area. Trax Geofences have no size limit, caregivers can create as many fence areas as needed, and can schedule when those virtual fences are in effect. Website: https://Ellie.41st Parameter/# Information on brain health and aging One thing that consistently declines with age is processing speed. The best ways to improve performance are to give yourself adequate time when pursuing cognitive tasks, work with no distractions, and avoid multitasking. Multitasking is in fact rapidly alternating between two activities, not doing two activities simultaneously. While in the past you may have been able to switch rapidly enough to maintain both activities, this can now be a problem for performance. With regards to cognitive exercise, the closer you can get to the real world activity that you wishto improve the more likely it is to carry over into real life. For example, if you want to improve remembering the names of people you meet, play a game with faces on cards that you have to match to names. In addition, theoretically learning a completely new domain of knowledge will stimulate the brain, for example, learning a new language. The online cognitive exercise program with the most evidence based medicine for actually helping reduce risk of cognitive decline is called BrainHQ, which is a pay service. Others programs may be helpful as well. Physical exercise is one of the most important things you can do for your brain health and general health. Do at least 30 minutes every day of moderate intensity cardiovascular exercise (where it is just a little hard to talk during the exercise). Diet: Both the Mediterranean diet and the MIND-DASH diet are recommended for brain and heart health. I. The Mediterranean diet is rich in fish, olive oil, grains, and less fat and red meat has been shown to improve brain and heart health. You can visit their website, https://Shoefitr/, for free recipes! II. The MIND-DASH diet is a modified version of the Mediterranean diet, has also been shown to reduce the risk of dementia. GOOD: Green leafy vegetables (like spinach and salad greens): At least six servings a week Other vegetables: At least one a day Nuts: Five servings a week Berries: Two or more servings a week Beans: At least three servings a week Whole grains: Three or more servings a day Fish: Once a week Poultry (like chicken or turkey): Two times a week [place] oil: Use it as your main cooking oil. Wine: One glass a day AVOID: Red meat: Less than four servings a week Butter and margarine: Less than a tablespoon daily Cheese: Less than one serving a week Pastries and sweets: Less than five servings a week Fried or fast food: Less than one serving a week Alcohol consumption: Alcohol interferes with brain function, not just during drinking or hours after drinking, but montessori teacher it causes negative changes on the brain, such as thinking and memory problems, mood and behavior changes. In addition, it causes imbalance, increases the risk of injury and falls, risk of stroke,heart disease, liver disease, cancer, to name a few. Heavy alcohol use is defined as: For men: drinking > 4 drinks on any day, or >14 drinks per week For women: drinking > 3 drinks on any day, or > 7 drinks per week One standard drink contains 15 grams of pure alcohol. One standard drink is defined as: (https://www.cdc.gov/alcohol/fact-sheets/moderate-drinking.htm). ABV: alcohol by volume. For more information on alcohol consumption and its health effects, visit the National [place] onAlcohol Abuse and Alcoholism (NIAAA) website at: https://www.niaaa.nih.gov/adkvqlxl-tadnzyb-zprxfw Talk to your doctor if you are concerned about your drinking and would like help. You can also visit the NIAAA Alcohol Treatment Navigator website at: https://alcoholtreatment.niaaa.nih.gov/ Coffee consumption: In general, 2-3 cups of coffee may be beneficial for brain health. Refrain from 6 cups or more per day. Staying socially active and engaged also stimulates the brain and decreases the risk of dementia. documented in this encounter Nursing Notes * Valorie Guerra MED ASSIST - 04/08/2023 2:31 PM EST Chief Complaint Patient presents with Return Neuro documented in this encounter Plan of Treatment Upcoming Encounters Date Type Department Care Team (Late st Contact Info) Description 06/08/2023 3:20 PM EDT Telemedicine Neurology, [place] [address] [place] [address] Nataliya Ward CRNP [address] [place] [address] 07/04/2023 9:00 AM EDT Office Visit Psychiatry, [facility] [address] [place], [place] [address] Amy Samuel CRNP [address] [place], [place] [address] 07/06/2023 2:20 PM EDT Office Visit Family [facility] [address] [place] [address] Rose Egan DO [address] [place] [address] 10/07/2023 10:40 AM EDT Office Visit Neurology [facility] [place] [address] [place] [address] [facility] CR[facility] [address] [facility] [address] Scheduled Referrals Name Type Priority Associated Diagnoses Orde r Schedule NEUROLOGY REFERRAL OP Referral Within 10 days (routine) Dementia without behavioral disturbance (HCC) Ordered: 10/06/2022 Health Maintenance Due Date Last Done Comments *BISPHONATE OR OTHER ACCEPTABLE MEDICATION NEEDED FOR OSTEOPOROSIS (REFER TO SMARTSET #1146) 06/21/2022 DTaP,Tdap,and Td Vaccines (2 - Td or Tdap) 07/06/2022 07/06/2012, 01/15/2010, 08/14/1999, Additional history exists DXA Scan 10/07/2022 10/07/2020, 09/05, 07/24/2013, Additional history exists COVID-19 Vaccine ( season) 2022 02/10/2021, 04/30/2020, 04/30/2020, Additional history exists Influenza Vaccine (FLU shot) (#1) 2022 01/12/2016, 01/12/2016, 11/20/2014 Mammogram 05/28/2023 05/27/2022, 05/06, 05/21/2021, Additional history exists TSH 06/16/2023 06/15/2022, 05/05, 04/11/2020, Additional history exists GFR 12/30/2023 12/29/2022, 08/0 04/2022, 06/15/2022, Additional history exists Depression Screening 02/17/2024 02/16/2023 Albumin/Creatinine Ratio 05/22/2024 022, 04/23/2020, 08/02/2017 Pneumococcal Vaccine: 65+ Years Completed 11/20/2014, 01/19/2008 Zoster Vaccines Completed 12/06/2018, 09/06, 02/25/2010 VITAMIN D LEVEL ONCE IN A LIFETIME-USE SMARTSET# [id number] Completed 05/22/2021, 07/18/2008 GARDASIL-HPV IMMUNIZATION SERIES Aged Out No longer eligible based on patient's age to complete this topic Hepatitis B Aged Out No longer eligi ble based on patient's age to complete this topic MENINGOCOCCAL (MENACTRA/MENVEO) Aged Out No longer eligible based on patient's age to complete this topic documented as of this encounter Medical Devices Not on filedocumented as of this encounter Visit Diagnoses Diagnosis Moderate dementia with other behavioral disturbance, unspecified dementia type (HCC)- Primary Primary open-angle glaucoma, bilateral, mild stage Anxiety Anxiety state, unspecified documented in this encounter Care Teams Family Worker Relationship Specialty Start Date End Date Rose Egan DO [address] [facility] [place] [address] PCP - General Family Medicine 07/13/16 documented as of this encounter
--- OUTSIDE RECORDS SUMMARY | 2023-04-29 22:45 | External Medical Summary | Summary of Care ---
Author Name Unknown Organization [facility] Address [address] [facility] [place] [address] Phone [phone] Care Team Providers Care Doorkeeper Name Role Phone Rose Egan DO Primary Care Provider [phone] Reason for Visit * Reason Onset Date Comments Advice 03/09/2023 Encounter Details Date Type Department Care Team (Late st Contact Info) Description 03/09/2023 Telephone Family Practice [facility] [address] [place] [address] Rose Egan DO [address] [place] [address] Advice Allergies Active Allergy Reactions Criticality Noted Date Comments Naproxen 05/03/2003 edema and wt gain documented as of this encounter (statuses as of 03/17/2023) Medications Medication Sig Dispensed Refills Start Date End Date Status VITAMIN E CAPS 1000 IU OR 1 po daily 0 09/04/2001 Active FISH OIL 1000 MG PO CAPS 1 Daily 0 Active CALCIUM 600 MG PO TABS 1 daily 0 Active VITAMIN D 1000 UNITS PO CAPSIndications:Os teoporosis One capsule twice daily 180 Cap 1 04/19/2014 Active Aspirin 81 MG Tablet Take 1 Tablet by mouth in the morning. 0 11/15/2014 Active Glucosamine Sulfate 1000 MG Oral Capsule 1,000 mg. 0 11/07/2019 Active Fluticasone Propionate 50 MCG/ACT Nasal SuspensionIndicati ons:Allergy to environmental factors two sprays each nostril once daily- as needed for allergies 3 Each 3 08/31/2021 Active Levothyroxine Sodium 75 MCG Oral Tablet (Levoxyl)Indicatio ns:Hypothyroidism, unspecified type TAKE 1 TABLET BY MOUTH DAILY AT LEAST 30 MINUTES PRIOR TO FIRST MEAL OF THE DAY OR OTHER MEDICATIONS 90 Tablet 3 08/30/2022 4 Active Pravastatin Sodium 40 MG Oral Tablet (Pravachol)Indicat ions:Dyslipidemia, goal LDL below 100 TAKE ONE TABLET BY MOUTH EVERY DAY 90 Tablet 3 03/17/2022 4 Active Latanoprost 0.005 % Ophthalmic Solution (Xalatan) INSTILL ONE DROP INTO EACH EYE EVERY EVENING 10 mL 3 03/11/2022 4 Active Chlorthalidone 25 MG Oral Tablet (Hygroton) TAKE ONE TABLET BY MOUTH EVERY DAY IN THE MORNING 100 Tablet 1 09/16/2022 Active Lisinopril 40 MG Oral TabletIndications: HTN, goal below 150/90 TAKE ONE TABLET BY MOUTH EVERY DAY 90 Tablet 1 02/08/2023 4 Active Potassium Chloride Kristy ER 20 MEQ Oral Tablet Extended ReleaseIndications :HTN, goal below 150/90 TAKE ONE TABLET BY MOUTH TWICE A DAY WITH FOOD 180 Tablet 1 02/22/2023 Active Donepezil HCl 10 MG Oral Tablet (Aricept) Take 1 Tablet by mouth in the morning. Take with breakfast.. 100 Tablet 2 02/23/2023 Active Escitalopram Oxalate 20 MG Oral Tablet (Lexapro)Indicatio ns:Mood disturbance Take 1 Tablet by mouth in the morning for 7 days. 7 Tablet 0 03/17/2023 4 Active Escitalopram Oxalate 20 MG Oral Tablet (Lexapro)Indicatio ns:Mood disturbance Take 1 Tablet by mouth in the morning. 90 Tablet 3 03/17/2023 Active Escitalopram Oxalate 20 MG Oral Tablet (Lexapro)Indicatio ns:Mood disturbance,Adonis ia without behavioral disturbance (HCC) Take 1 Tablet by mouth in the morning. 90 Tablet 3 03/03/2023 4 Discontinue d(Medicatio n List Clean Up) documented as of this encounter (statuses as of 03/17/2023) Active Problems Problem Noted Date Diagnosed Date Dementia without behavioral disturbance 06/19/19 23 Other specified peripheral vascular diseases Dementia without behavioral disturbance 06/19/19 Age-related osteoporosis wit hout current pathological fracture [...] as of this encounter (statuses as of 03/17/2023) Resolved Problems Problem Noted Date Diagnosed Date Resolved Date Other specified peripheral vascular diseases 1 04/11/2020 Encounter for examination fo r normal comparison and control in clinical research program 01/09/2018 01/31/2018 Overview: [facility] DETECT Study: Project # [id number], Parking Meter Collector: Ang Rangel, PhD. SUMMARY: Goal: Establish test [...] contact study staff at ; after hours Parking Meter Collector via the [facility] non licensed nuclear plant operator . Diagnosis changed due to Research Module. Go to Snapshot for study details. Lyme disease 08/10/2016 02/01/2017 Acute serous otitis media 05/06/2009 Dyslipidemia, goal to be determined 02/20/2009 07/08/2009 Overview: Per Lipid Taxonomy. Hypopotassemia 03/26/2002 01/15/2010 Allergic rhinitis 08/14/1998 09/24/2019 Overview: Acute. Mixed dyslipidemia 04/24/1998 12/ 9 Overview: Per Lipid Taxonomy. Hypothyroidism 03/21/1997 07/13/2016 HTN, goal below 140/90 03/14/199702/12 MENOPAUSE - 1991 07/13/2016 documented as of this encounter (statuses as of 03/17/2023) Immunizations Name Administration Dates Next Due COVID-19 [...] on file documented as of this encounter Miscellaneous Notes * Telephone Encounter - Rose Egan DO - 03/17/2023 11:23 AM EST Rx sent to both pharmacies as requested * Telephone Encounter - Allie Peralta OSA - 03/16/2023 4:18 PM EST Pts daughter called statin that they did double pts lexapro per providers instructions and stated that pt does seem to be doing better and is requesting that a new rx for the increased dose be sent to pts pharmacy as pt will be out of original rx in 7 days. Pts daughter is requesting that a 1 week supply of rx be sent to the local [facility] pharmacy and that a full rx be sent to Mail order pharmacy so rx can be used while waiting for mail order. Please reach out to advise. Thank You! * Telephone Encounter - Rose Egan DO - 03/09/2023 11:58 AM EST I'm out of town - unfortunately can't call but recommend that if concerned for safety of pt or should go to the ER Family should make sure all possible weapons removed from the home Is someone able to stay with them? Can also look into placement if they feel not safe at home Psych referral placed - scheduled in June but can see if outside [place] psych is available sooner orupdate the acuity of the referral Agree w/SW/CM touch base * Telephone Encounter - Christen Reyez RN - 03/09/2023 11:17 AM EST Juany Connolly, healthcare economics manager is out of office today. Contacted Araceli Pattern Filer who is checking to see who is covering for her today * Telephone Encounter - Neeta Corbett OSA - 03/09/2023 10:53 AM EST [place]. Pts son Milton has called and would like a call back from Dr. Jignesh DREW. He stated his mother has dementia/alzheimer's and she has in the past said she wanted to but last night she stated she wanted to kill her spouse. Milton is very concerned about this and wants to speak with about it. Please advise. CB# [phone] documented in this encounter Plan of Treatment Upcoming Encounters Date Type Department Care Team (Late st Contact Info) Description 04/08/2023 2:40 PM EST Office Visit Neurology [facility] [address] [facility] [place] [address] Nataliya Ward CRNP [address] [place] [address] 07/04/2023 9:00 AM EDT Office Visit Psychiatry, [facility] [address] [facility] [place] [address] Amy Samuel CRNP [address] [facility] [place] [address] 07/06/2023 2:20 PM EDT Office Visit Family Practice [facility] [address] [place] [address] Rose Egan, [address] [place] [address] 11/11/2023 10:00 AM EDT Telemedicine Neurology [facility] [address] [facility] [place] [address] Yfn Rizzo DO [address] [place] [address] Health Maintenance Due Date Last Done Comments [...] 2022 01/12/2016, 01/12/2016, 11/20/2014 Mammogram 05/28/2023 05/27/2022, 05/05, 05/16/2020, Additional history exists TSH 06/16/2023 06/15/2022, 05/05, 04/11/2020, Additional history exists GFR 12/30/2023 12/29/2022, 08/0 04/2022, 06/15/2022, Additional history exists Depression Screening 02/17/2024 02/16/2023 Albumin/Creatinine Ratio 05/22/2024 022, 04/23/2020, 08/02/2017 Pneumococcal Vaccine: 65+ Years Completed 11/20/2014, 01/19/2008 Zoster Vaccines Completed 12/06/2018, 09/06, 02/25/2010 VITAMIN D LEVEL ONCE IN A LIFETIME-USE SMARTSET# [id number] Completed 05/22/2021, 07/18/2008 GARDASIL-HPV IMMUNIZATION SERIES Aged [...] as of this encounter Visit Diagnoses Diagnosis Mood disturbance- Primary documented in this encounter Care Teams Doorkeeper Relationship Specialty Start Date End Date Rose Egan DO [address] [place] [address] PCP - General Family Medicine 07/13/16 documented as of this encounter
--- OUTSIDE RECORDS SUMMARY | 2023-04-29 22:46 | External Medical Summary | Summary of Care ---
Author Name Unknown Organization [facility] Address [address] [facility] [place] [address] Phone [phone] Care Team Providers Care Restaurant Crew Member Name Role Phone Floyd Egan DO Primary Care Provider [phone] Reason for Visit * Reason Onset Date Comments Medication Refill 02/21/2023 Encounter Details Date Type Department Care Team (Late st Contact Info) Description 02/21/2023 Refill Family Practice [facility] [address] [place] [address] Floyd Egan DO [address] [place] [address] HTN, goal below 150/90 Allergies Active Allergy Reactions Criticality Noted Date Comments Naproxen 05/03/2003 edema and wt gain documented as of this encounter (statuses as of 02/25/2023) Medications Medication Sig Dispensed Refills Start Date [...] THE MORNING 100 Tablet 1 09/16/2022 Active Escitalopram Oxalate 10 MG Oral Tablet (Lexapro)Indicatio ns:Mood disturbance Take 1 Tablet by mouth in the morning. 90 Tablet 3 12/29/2022 Active Lisinopril 40 MG Oral TabletIndications: HTN, goal below 150/90 TAKE ONE TABLET BY MOUTH EVERY DAY 90 Tablet 1 02/08/2023 4 Active Potassium Chloride Kristy ER 20 MEQ Oral Tablet Extended ReleaseIndications :HTN, goal below 150/90 TAKE ONE TABLET BY MOUTH TWICE A DAY WITH FOOD 180 Tablet 1 02/22/2023 Active Potassium Chloride Kristy ER 20 MEQ Oral Tablet Extended ReleaseIndications :HTN, goal below 150/90 TAKE ONE TABLET BY MOUTH TWICE A DAY WITH FOOD 10 Tablet 0 02/25/2023 3 Active Potassium Chloride Kristy ER 20 MEQ Oral Tablet Extended ReleaseIndications :HTN, goal below 150/90 TAKE ONE TABLET BY MOUTH TWICE A DAY WITH FOOD 180 Tablet 3 03/19/2022 3 Discontinue d(Refill) documented as of this encounter (statuses as of 02/25/2023) Active Problems Problem Noted Date Diagnosed Date Dementia without behavioral disturbance 06/19/19 23 Other specified peripheral vascular diseases Dementia without behavioral disturbance 06/19/19 23 Age-related osteoporosis wit hout current pathological fracture [...] as of this encounter (statuses as of 02/25/2023) Resolved Problems Problem Noted Date Diagnosed Date Resolved Date Other specified peripheral vascular diseases 04/11/2020 Encounter for examination fo r normal comparison and control in clinical research program 01/09/2018 01/31/2018 Overview: [facility] DETECT Study: Project # [id number], Can Handler: Ang Rangel, PhD. SUMMARY: Goal: Establish test [...] contact study staff at ; after hours Can Handler via the [facility] hospital technical operator . Diagnosis changed due to Research Module. Go to Snapshot for study details. Lyme disease 08/10/2016 02/01/2017 Acute serous otitis media 05/06/2009 Dyslipidemia, goal to be determined 02/20/2009 07/08/2009 Overview: Per Lipid Taxonomy. Hypopotassemia 03/26/2002 01/15/2010 Allergic rhinitis 08/14/1998 09/24/2019 Overview: Acute. Mixed dyslipidemia 04/24/199802/20/ 9 Overview: Per Lipid Taxonomy. Hypothyroidism 03/21/1997 07/13/2016 HTN, goal below 140/90 03/14/199702/12 MENOPAUSE - 1991 07/13/2016 documented as of this encounter (statuses as of 02/25/2023) Immunizations Name Administration Dates Next Due COVID-19 mRNA, LNP-s, No Pre serve, 2-Dose Series (Moderna) 04/30/2020,04/07/2020 Diptheria/Tetanus (Adult) 04/07/1989 Pneumococcal Conjugate Vacc, 13 Valent (Prevnar) 11/20/2014 Pneumococcal Polysaccharide PPV23 (Pneumovax) 01/19/2008 Seasonal Influenza Virus Vac cine, Unspecified Formulation 01/12/2016 Seasonal Influenza, Quadriva lent, No Preserve, IM 01/12/2016 Seasonal Influenza, Split, I IV3, With Preserve, Inj 11/20/2014 TD - Tetanus/Diptheria (ADULT) 08/14/1999 0 08/13/2009 TD, Preservative Free 01/15/2010,08/14/1999,03/1989 TDAP (age 10 [...] encounter Miscellaneous Notes * Telephone Encounter - Nichole Wiseman [facility] - 02/25/2023 9:43 AM ESTSigned Prescriptions: Disp Refills Potassium Chloride Kristy ER 20 MEQ Oral Tab*180 Ta*1 Sig: TAKE ONE TABLET BY MOUTH TWICE A DAY WITH FOODAuthorizing Provider: FLOYD EGAN User: MALDONADO BENIGNO Potassium Chloride Kristy ER 20 MEQ Oral Tab*10 Tab*0 Sig: TAKE ONE TABLET BY MOUTH TWICE A DAY WITH FOODAuthorizing Provider: FLOYD EGAN User: NICHOLE WISEMAN * Addendum Note - Nichole Wiseman [facility] - 02/25/2023 9:43 AM ESTAddended by: NICHOLE WISEMAN on: 02/25/2023 09:43 AM Modules accepted: Orders * Addendum Note - Conchita Horne CPhT - 02/25/2023 9:30 AM ESTAddended by: CONCHITA HORNE on: 02/25/2023 09:30 AM Modules accepted: Orders * Telephone Encounter - Conchita Horne CPhT - 02/25/2023 9:29 AM EST Patients daughter calling to request short supply for Potassium Chloride Kristy ER 20 MEQ until mail order arrives. Please review and approve if appropriate. Pending Prescriptions: Disp Refills Potassium Chloride Kristy ER 20 MEQ Oral Ta*10 Tab*0 Sig: TAKE ONE TABLET BY MOUTH TWICE A DAY WITH FOOD Signed Prescriptions: Disp Refills Potassium Chloride Kristy ER 20 MEQ Oral Tab*180 Ta*1 Sig: TAKE ONE TABLET BY MOUTH TWICE A DAY WITH FOOD Authorizing Provider: FLOYD EGAN Ordering User: BENIGNO MILLER Last Visit: 12/29/2022 (in office), Visit date not found (telemedicine) 07/06/2023 Thank you, Conchita Horne, Construction Carpenter [facility]) 02/25/2023, 9:29 AM * Telephone Encounter - Benigno Miller RP - 02/22/2023 10:25 AM ESTSigned Prescriptions: Disp Refills Potassium Chloride Kristy ER 20 MEQ Oral Tab*180 Ta*1 Sig: TAKE ONE TABLET BY MOUTH TWICE A DAY WITH FOOD Authorizing Provider: FLOYD EGAN Ordering User: BENGINO MILLER * Telephone Encounter - Roly Toussaint PHARM Tech - 02/21/2023 11:03 AM EST Did you pend patient's preferred pharmacy and medication before forwarding?yes Pharmacy: [facility] Pending Prescriptions: Disp Refills Potassium Chloride Kristy ER 20 MEQ Oral Ta*180 Ta*3 Sig: TAKE ONE TABLET BY MOUTH TWICE A DAY WITH FOOD Last Visit: 12/29/2022 (in office), Visit date not found (telemedicine) Next Visit: 07/06/2023 If no future appointments scheduled, and last appointment is greater than a year ago, please schedule patient for a follow-up appointment Last date the medication was ordered: 03/19/2022 Is this request for a controlled substance?No Urine Drug Screen:No results found for this or any previous visit. Patient Phone Numbers Labs: Lab Results Component Value Date/Time CREAT 0.8 12/29/2022 01:48 PM CREAT 0.8 08/27/2019 10:33 AM POTASSIUM 4.0 12/29/2022 01:48 PM POTASSIUM 3.8 08/27/2019 10:33 AM TSH 2.75 06/15/2022 02:09 PM TSH 2.23 04/06/2019 08:41 AM LDLCALC 117 05/22/2021 03:26 PM LDLCALC 84 04/06/2019 08:41 AM LDLDIRECT NOT APPLICABLE 04/06/2019 08:41 AM ALT 9 (L) 10/06/2022 04:38 PM ALT 11 10/03/2018 09:47 AM HGBA1C 5.4 06/05/2021 10:25 AM HGBA1C 5.4 02/01/2017 09:32 AM documented in this encounter Plan of Treatment Upcoming Encounters Date Type Department Care Team (Late st Contact Info) Description 04/08/2023 2:40 PM EST Office Visit Neurology [address] [place] [address] Nataliya Ward CRNP [address] [place] [address] 07/06/2023 2:20 PM EDT Office Visit Family Practice [facility] [address] [facility] [place] [address] Floyd Egan DO [address] [facility] [place] [address] 11/11/2023 10:00 AM EDT Telemedicine Neurology [facility] [address] [place] [address] Yfn Rizzo DO [address] [place] [address] Health Maintenance Due Date Last [...] D LEVEL ONCE IN A LIFETIME-USE SMARTSET# [id number] Completed 05/22/2021, 07/18/2008 GARDASIL-HPV IMMUNIZATION SERIES Aged [...] as of this encounter Visit Diagnoses Diagnosis HTN, goal below 150/90 documented in this encounter Care Teams Restaurant Crew Member Relationship Specialty Start Date End Date Floyd Egan DO [address] [place] [address] PCP - General Family Medicine 07/13/16 documented as of this encounter
--- OUTSIDE RECORDS SUMMARY | 2023-04-29 22:46 | External Medical Summary | Summary of Care ---
Author Name Unknown Organization [facility] Address [address] [place] [address] Phone [phone] Care Team Providers Care Filteration Operator Name Role Phone BlakeRose hinds Primary Care Provider [phone] Reason for Visit * Reason Comments Medication Refill Encounter Details Date Type Department Care Team (Late st Contact Info) Description 02/18/2023 Refill Neurology [facility] [place] [address] [place] [address] Wes Bellamy, DO [address] [place] [address] Allergies Active Allergy Reactions Criticality Noted Date Comments Naproxen 05/03/2003 edema and wt gain documented as of this encounter (statuses as of 02/23/2023) Medications Medication Sig Dispensed Refills Start Date [...] DAY 90 Tablet 1 02/08/2023 4 Active Donepezil HCl 10 MG Oral Tablet (Aricept) Take 1 Tablet by mouth in the morning. Take with breakfast.. 100 Tablet 2 02/23/2023 Active Potassium Chloride Kristy ER 20 MEQ Oral Tablet Extended ReleaseIndications :HTN, goal below 150/90 TAKE ONE TABLET BY MOUTH TWICE A DAY WITH FOOD 180 Tablet 3 03/19/2022 3 Discontinue d(Refill) Donepezil HCl 10 MG Oral Tablet (Aricept) TAKE ONE TABLET BY MOUTH EVERY MORNING WITH BREAKFAST 100 Tablet 2 04/24/2022 3 Discontinue d(End of Procedure) documented as of this encounter (statuses as of 02/23/2023) Active Problems Problem Noted Date Diagnosed Date Dementia without behavioral disturbance 06/19/19 Other specified peripheral vascular diseases Dementia without [...] as of this encounter (statuses as of 02/23/2023) Resolved Problems Problem Noted Date Diagnosed Date Resolved Date Other specified peripheral vascular diseases 1 04/11/2020 Encounter for examination fo r normal comparison and control in clinical research program 01/09/2018 01/31/2018 [facility]: [facility] Study: Project # [id number], Maintenance Mechanic Millwright: Ang Rangel, PhD. SUMMARY: Goal: Establish test [...] contact study staff at ; after hours Maintenance Mechanic Millwright via the [facility] hospital interlocking machine operator . Diagnosis changed due to Research [...] as of this encounter (statuses as of 02/23/2023) Immunizations Name Administration Dates Next Due COVID-19 [...] encounter Miscellaneous Notes * Telephone Encounter - Wes Bellamy DO - 02/23/2023 2:29 PM ESTSigned Prescriptions: Disp Refills Donepezil HCl 10 MG Oral Tablet (Aricept) 100 Ta*2 Sig: Take 1 Tablet by mouth in the morning. Take with breakfast..Authorizing Provider: WES BELLAMYRefusedPrescriptions: Disp Refills Donepezil HCl 10 MG Oral Tablet (Aricept) 100 Ta*2 Sig: TAKE ONE TABLETBY MOUTH EVERY MORNING WITH BREAKFASTRefused By: Evans HANNAH for Refusal: Course of treatment completeReason for Refusal Comment: patient will be stopping the medication * Addendum Note - Wes Bellamy DO - 02/23/2023 2:29 PM ESTAddended by: WES BELLAMY on: 02/23/2023 02:29 PM Modules accepted: Orders * Telephone Encounter - Wes Bellamy DO - 02/23/2023 2:29 PM EST Refill signed. Thanks! Wes Bellamy DO 02/23/2023 * Telephone Encounter - Radha Urrutia OSA - 02/22/2023 1:39 PM ESTRefused Prescriptions: Disp Refills Donepezil HCl 10 MG Oral Tablet (Aricept) 100 Ta*2 Sig: TAKE ONE TABLET BY MOUTH EVERY MORNING WITH BREAKFASTRefused By: Ashley HANNAH for Refusal: Course of treatment completeReason for Refusal Comment: patient will be stopping the medication--------- * Telephone Encounter - Radha Urrutia OSA - 02/22/2023 1:39 PM EST Appt scheduled * Telephone Encounter - Arianna Mejia OSA - 02/20/2023 11:37 AM EST I called and left message with pts for pts daughter to follow up, when the pt calls back please schedule per below. Thank you! * Telephone Encounter - Kay Hannah LPN - 02/18/2023 1:32 PM ESTRefused Prescriptions: Disp Refills Donepezil HCl 10 MG Oral Tablet (Aricept) 100 Ta*2 Sig: TAKE ONE TABLET BY MOUTH EVERY MORNING WITH BREAKFAST Refused By: KAY HANNAH Reason for Refusal: Course of treatment complete Reason for Refusal Comment: patient will be stopping the medication * Telephone Encounter - Kay Hannah LPN - 02/18/2023 1:27 PM EST Patient verified identity by spelling of last name and date. Outgoing call to Hannah to advise of message from Dr. Bellamy. Patient advised that yes she is still having severe diarrhea and is having it every day. Advised that she should stop the medication and that we would like to get her in for an appt with DUANE Lennon. Patient advised we should speak with Liliana to schedule an appt but that she is not home today and we can call her tomorrow or after. [place] lawson did not want to set up an appt and deferred to Liliana but is aware to stop the medication. * Telephone Encounter - Wes Bellamy DO - 02/18/2023 12:12 PM ESTPending Prescriptions: Disp Refills Donepezil HCl 10 MG Oral Tablet (Aricept) 100 Ta*2 Sig: TAKE ONE TABLET BY MOUTH EVERY MORNING WITH BREAKFAST * Telephone Encounter - Wes Bellamy DO - 02/18/2023 12:09 PM EST Patient last seen by me in 11/2021. Donepezil was started in 05/2021. Review of system documented on 06/05/21 was negative for diarrhea.-> endorsed diarrhea in 08/2021 -> SEVERE diarrhea in 10/2022 Next scheduled appointment with Neurology is not until 11/2023. Has not been seen by Gastroenterology Nurses, please reach out to patient and inquire: 1. If she is still taking donepezil? 2. How is her diarrhea these days? If diarrhea remains severe, please offer stop immediately, no weaning necessary. Please also offered next available return visit with either Nataliya Ward or myself. Keep 11/2023 appointment. Thanks! Wes Bellamy DO 02/18/2023 12:11 PM * Telephone Encounter - Lizbeth Patterson LPN - 02/18/2023 10:46 AM ESTPending Prescriptions: Disp Refills Donepezil HCl 10 MG Oral Tablet (Aricept) 100 Ta*2 Sig: TAKE ONE TABLET BY MOUTH EVERY MORNING WITH BREAKFAST * Telephone Encounter - Priscilla Shore [facility] - 02/18/2023 10:26 AM ESTPending Prescriptions: Disp Refills Donepezil HCl 10 MG Oral Tablet (Aricept) 100 Ta*2 Sig: TAKE ONE TABLET BY MOUTH EVERY MORNING WITH BREAKFAST * Telephone Encounter - Priscilla Shore [facility] - 02/18/2023 10:20 AM EST Unable to authorize medication refills for pended medication(s) at this time. Part of the protocol criteria used for refill authorization was not satisfied. Patient has diarrhea documented in chart and needs OV on file within past year. Pt's next scheudledOV is 11/11/2023. Last visit: 11/19/2021 Please approve if appropriate. Thank you, Priscilla Shore, PharmD Clinical Pharmacist [facility] ([facility]) (formerly [employer] [phone] 02/18/2023, 10:21 AM Pending Prescriptions: Disp Refills Donepezil HCl 10 MG Oral Tablet (Aricept) 100 Ta*2 Sig: TAKE ONE TABLET BY MOUTH EVERY MORNING WITH BREAKFAST Last Visit: 06/05/2021 (in office), Visit date not found (telemedicine) Next Visit: 11/11/2023 If no future appointments scheduled, and last appointment is greater than a year ago, please schedule patient for a follow-up appointment Last date the medication was ordered: 04/24/2022 Pharmacy: [facility] Is this request for a controlled substance? No Urine Drug Screen:No results found for this [...] 04/08/2023 2:40 PM EST Office Visit Neurology [facility] [address] [place] [address] Nataliya Ward CRNP [address] [facility] [address] 07/06/2023 2:20 PM EDT Office Visit Family Practice [facility] [address] [place] [address] Rose Egan DO [address] [place] [address] 11/11/2023 10:00 AM EDT Telemedicine Neurology [facility] [place] [address] [facility] [address] Wes Bellamy, DO [address] [facility] [place] [address] Health Maintenance Due Date Last Done Comments [...] D LEVEL ONCE IN A LIFETIME-USE SMARTSET# [id number] Completed 05/22/2021, 07/18/2008 GARDASIL-HPV IMMUNIZATION SERIES Aged [...] Not on filedocumented as of this encounter Care Teams Filteration Operator Relationship Specialty Start Date End Date Rose Egan DO [address] [place] [address] PCP - General Family Medicine 07/13/16 documented as of this encounter
--- OUTSIDE RECORDS SUMMARY | 2023-04-29 22:46 | External Medical Summary | Summary of Care ---
Author Name Unknown Organization [facility] Address [address] [place] [address] Phone [phone] Care Team Providers Care General Education Instructor Name Role Phone BlakeRose hinds DO Primary Care Provider [phone] Reason for Visit * Reason Onset Date Comments Advice 01/31/2023 Encounter Details Date Type Department Care Team (Late st Contact Info) Description 01/31/2023 Telephone Access Center, [facility] [address] [facility] *DO NOT REMOVE THIS DEPARTMENT* [place] [address] Services, Scheduling [address] [place] [address] Advice Allergies Active Allergy Reactions Criticality Noted Date Comments Naproxen 05/03/2003 edema and wt gain documented as of this encounter (statuses as of 03/03/2023) Medications Medication Sig Dispensed Refills Start Date [...] THE MORNING 100 Tablet 1 09/16/2022 Active Potassium Chloride Kristy ER 20 MEQ Oral Tablet Extended ReleaseIndications :HTN, goal below 150/90 TAKE ONE TABLET BY MOUTH TWICE A DAY WITH FOOD 180 Tablet 3 03/19/2022 3 Discontinue d(Refill) Lisinopril 40 MG Oral TabletIndications: HTN, goal below 150/90 TAKE ONE TABLET BY MOUTH EVERY DAY 90 Tablet 2 05/01/2022 3 Discontinue d(Refill) Donepezil HCl 10 MG Oral Tablet (Aricept) TAKE ONE TABLET BY MOUTH EVERY MORNING WITH BREAKFAST 100 Tablet 2 04/24/2022 3 Discontinue d(End of Procedure) Escitalopram Oxalate 10 MG Oral Tablet (Lexapro)Indicatio ns:Mood disturbance Take 1 Tablet by mouth in the morning. 90 Tablet 3 12/29/2022 3 Discontinue d(Refill) documented as of this encounter (statuses as of 03/03/2023) Active Problems Problem Noted Date Diagnosed Date [...] as of this encounter (statuses as of 03/03/2023) Resolved Problems Problem Noted Date Diagnosed Date Resolved Date Other specified peripheral vascular diseases 1 04/11/2020 Encounter for examination fo r normal comparison and control in clinical research program 01/09/2018 01/31/2018 Overview: [facility] DETECT Study: Project # [id number], Upholstery Sewer: Ang Rangel, PhD. SUMMARY: Goal: Establish test [...] contact study staff at ; after hours Upholstery Sewer via the [facility] hospital overlock sewing machine operator . Diagnosis changed due to [...] as of this encounter (statuses as of 03/03/2023) Immunizations Name Administration Dates Next Due COVID-19 [...] encounter Miscellaneous Notes * Telephone Encounter - Christen Reyez RN - 02/01/2023 9:43 AM EST Called son, Milton, who states that pt has been having "bad days" in terms of emotions. She barricaded herself in her room last week. Yesterday she was on on floor crying hysterically crying and saying that she want to . Both of pt's parents had dementia and she was terrified of having it also. * Telephone Encounter - Heidi Aquino OSA - 01/31/2023 9:53 AM EST Pt adult son, Milton requesting a return call from pt PCP, Dr Egan regarding his mother. documented in this encounter Plan of Treatment Upcoming Encounters Date Type Department Care Team (Late st Contact Info) Description 04/08/2023 2:40 PM EST Office Visit Neurology [address] [place] [address] Nataliya Ward CRNP [address] [place], [place] [phone] 07/06/2023 2:20 PM EDT Office Visit Family Practice [facility] [address] [place] [address] Rose Egan DO [address] [facility] [place] [address] 11/11/2023 10:00 AM EDT Telemedicine Neurology [facility] [address] [facility] [place] [address] Yfn Rizzo DO [address] [place], [place] [id number] Health Maintenance Due Date Last Done Comments [...] 04/11/2020, Additional history exists GFR 12/30/2023 12/29/2022, 0804/2022, 06/15/2022, Additional history exists Depression Screening 02/17/2024 02/16/2023 Albumin/Creatinine Ratio 05/22/2024 022, 04/23/2020, 08/02/2017 Pneumococcal Vaccine: 65+ Years Completed 11/20/2014, 01/19/2008 Zoster Vaccines Completed 12/06/2018, 09/06, 02/25/2010 VITAMIN D LEVEL ONCE IN A LIFETIME-USE SMARTSET# [id number] Completed 05/22/2021, 07/18/2008 GARDASIL-HPV IMMUNIZATION SERIES Aged [...] filedocumented as of this encounter Care Teams General Education Instructor Relationship Specialty Start Date End Date Rose Egan DO [address] [place] [address] PCP - General Family Medicine 07/13/16 documented as of this encounter
--- OUTSIDE RECORDS SUMMARY | 2023-04-29 22:46 | External Medical Summary | Summary of Care ---
Author Name Unknown Organization [facility] Address [address] [facility] [place] [address] Phone [phone] Care Team Providers Care Product Craftsman Name Role Phone Rose Egan DO Primary Care Provider [phone] Reason for Referral * Evaluate & Treat - Unlimited Visits (Within 10 days (routine)) - Authorized Specialty Diagnoses / Procedures Referred By Lani rodrigues Referred To Contact Psychiatry Diagnoses Mood disturbance Dementia without behavioral disturbance (HCC) Rose Egan DO [address] [place] [address] Referral ID Status Reason Start Date Expiration Date Visits Requested Visits Authorized [id number] Authorized Specialty Services Required 3 [phone] Question Answer Referral Priority Within 10 days (routine) Where should this appointment be scheduled? Bj Is this referral for medication management? Yes Referral To Bj Reason for Referral Depression Reason for Visit * Reason Onset Date Comments Advice 03/02/2023 Encounter Details Date Type Department Care Team (Late st Contact Info) Description 03/02/2023 Telephone Family Practice [facility] [address] [place] [address] Rose Egan DO [address] [place] [address] Advice Allergies Active Allergy Reactions Criticality Noted Date Comments Naproxen 05/03/2003 edema and wt gain documented as of this encounter (statuses as of 03/08/2023) Medications Medication Sig Dispensed Refills Start Date [...] in the morning. 90 Tablet 3 03/03/2023 Active Escitalopram Oxalate 10 MG Oral Tablet (Lexapro)Indicatio ns:Mood disturbance Take 1 Tablet by mouth in the morning. 90 Tablet 3 12/29/2022 3 Discontinue d(Refill) documented as of this encounter (statuses as of 03/08/2023) Active Problems Problem Noted Date Diagnosed Date [...] as of this encounter (statuses as of 03/08/2023) Resolved Problems Problem Noted Date Diagnosed Date Resolved Date Other specified peripheral vascular diseases 1 04/11/2020 Encounter for examination fo r normal comparison and control in clinical research program 01/09/2018 01/31/2018 Overview: [facility] DETECT Study: Project # [id number], Tunnel Heading Inspector: Ang Rangel, PhD. SUMMARY: Goal: Establish test [...] contact study staff at ; after hours Tunnel Heading Inspector via the [facility] hospital batch freezer operator . Diagnosis changed due to Research Module. Go to Snapshot for study details. Lyme disease 08/10/2016 02/01/2017 Acute serous otitis media 05/06/2009 Dyslipidemia, goal to be determined 02/20/2009 07/08/2009 Overview: Per Lipid Taxonomy. Hypopotassemia 03/26/2002 01/15/2010 Allergic rhinitis 08/14/1998 09/24/2019 Overview: Acute. Mixed dyslipidemia 04/24/1998 Overview: Per Lipid Taxonomy. Hypothyroidism 03/21/1997 07/13/2016 HTN, goal below 140/90 03/14/199702/12 MENOPAUSE - 1991 07/13/2016 documented as of this encounter (statuses as of 03/08/2023) Immunizations Name Administration Dates Next Due COVID-19 [...] encounter Miscellaneous Notes * Telephone Encounter - Naomi Wise OSA - 03/08/2023 8:59 AM EST LMOM for Liliana to call and schedule patient. Patient will need signed up with [facility] before scheduling. TOM Baker * Telephone Encounter - Gordo Lopez OSA - 03/04/2023 1:35 PM EST Computer denies me scheduling pt's psych referral. Please call to arrange * Telephone Encounter - Rose Egan DO - 03/03/2023 5:00 PM EST Discussed patient w/daughter Liliana Has had ups and downs over the holidays No SI or attempts such as she had before Discussed increasing lexapro to 20mg daily Also [facility] psychiat[facility] referral Please call Liliana at [phone] to arrange (number in demographics is old) Liliana will communicate our discussion with Milton * Telephone Encounter - María Murrieta OSA - 03/03/2023 9:55 AM EST Son, Milton, calling again asking to speak with Dr. Egan. I did explain that this message was sent. He asked if another message could be sent. * Telephone Encounter - Jennyfer Hartley OSA - 03/02/2023 10:12 AM EST Son is calling. Would like to speak to Dr Egan.Mother is having a difficult time with dementiaand alzheimer's. Bouts of severe depression. Stated she wants to . Please advise. [phone] documented in this encounter Plan of Treatment Upcoming Encounters Date Type Department Care Team (Late st Contact Info) Description 04/08/2023 2:40 PM EST Office Visit Neurology [facility] [address] [facility] [place] [address] Nataliya Ward CRNP [address] [place] [address] 07/04/2023 9:00 AM EDT Office Visit Psychiatry, [facility] [address] [place] [address] [address] Amy Samuel CRNP [address] [facility] [place] [address] 07/06/2023 2:20 PM EDT Office Visit Family Practice [facility] [address] [place] [address] Rose Egan DO [address] [place] [address] 11/11/2023 10:00 AM EDT Telemedicine Neurology [facility] [address] [facility] [place] [address] Yfn Rizzo DO [address] [place], [place] [phone] Scheduled Referrals Name Type Priority Associated Diagnoses Orde r Schedule ADULT/PEDS PSYCHIATRY REFERRAL OP Referral Within 10 days (routine) Mood disturbance Dementia without behavioral disturbance (HCC) Ordered: 03/03/2023 Health Maintenance Due Date Last Done Comments [...] D LEVEL ONCE IN A LIFETIME-USE SMARTSET# [id number] Completed 05/22/2021, 07/18/2008 GARDASIL-HPV IMMUNIZATION SERIES Aged [...] as of this encounter Visit Diagnoses Diagnosis Dementia without behavioral disturbance (HCC)- Primary Dementia, unspecified, without behavioral disturbance Mood disturbance documented in this encounter Care Teams Product Craftsman Relationship Specialty Start Date End Date Rose Egan DO [address] [place] [address] PCP - General Family Medicine 07/13/16 documented as of this encounter
--- OUTSIDE RECORDS SUMMARY | 2023-04-29 22:46 | External Medical Summary | Summary of Care ---
Author Name Unknown Organization [facility] Address [address] [facility] [place] [address] Phone [phone] Care Team Providers Care Specialist Field Engineer Name Role Phone Floyd Yeung DO Primary Care Provider [phone] Reason for Visit * Reason Comments Medication Refill Encounter Details Date Type Department Care Team (Late st Contact Info) Description 02/08/2023 Refill Family Practice [facility] [address] [place] [address] Floyd Yenug DO [address] [place] [address] HTN, goal below 150/90 Allergies Active Allergy Reactions Criticality Noted Date Comments Naproxen 05/03/2003 edema and wt gain documented as of this encounter (statuses as of 02/08/2023) Medications Medication Sig Dispensed Refills Start Date [...] for allergies 3 Each 3 08/31/2021 Active Potassium Chloride Kristy ER 20 MEQ Oral Tablet Extended ReleaseIndications :HTN, goal below 150/90 TAKE ONE TABLET BY MOUTH TWICE A DAY WITH FOOD 180 Tablet 3 03/19/2022 Active Levothyroxine Sodium 75 MCG Oral Tablet (Levoxyl)Indicatio ns:Hypothyroidism, unspecified type TAKE 1 TABLET BY MOUTH DAILY AT LEAST 30 MINUTES PRIOR TO FIRST MEAL OF THE DAY OR OTHER MEDICATIONS 90 Tablet 3 08/30/2022 4 Active Donepezil HCl 10 MG Oral Tablet (Aricept) TAKE ONE TABLET BY MOUTH EVERY MORNING WITH BREAKFAST 100 Tablet 2 04/24/2022 4 Active Pravastatin Sodium 40 MG Oral [...] DAY 90 Tablet 1 02/08/2023 4 Active Lisinopril 40 MG Oral TabletIndications: HTN, goal below 150/90 TAKE ONE TABLET BY MOUTH EVERY DAY 90 Tablet 2 05/01/2022 3 Discontinue d(Refill) documented as of this encounter (statuses as of 02/08/2023) Active Problems Problem Noted Date Diagnosed Date [...] as of this encounter (statuses as of 02/08/2023) Resolved Problems Problem Noted Date Diagnosed Date Resolved Date Other specified peripheral vascular diseases 1 04/11/2020 Encounter for examination fo r normal comparison and control in clinical research program 01/09/2018 01/31/2018 Overview: [facility] DETECT Study: Project # [id number], Front End Web Developer: Ang Rangel, PhD. SUMMARY: Goal: Establish test [...] contact study staff at ; after hours Front End Web Developer via the [facility] hospital burr bench operator . Diagnosis changed due to Research [...] as of this encounter (statuses as of 02/08/2023) Immunizations Name Administration Dates Next Due COVID-19 [...] Answer Date Recorded PHQ Adult Total Score 1 01/26/2023 Hunger Vital Sign Answer Date Recorded Within [...] encounter Miscellaneous Notes * Telephone Encounter - Floyd Quevedo [facility] - 02/08/2023 2:04 PM ESTSigned Prescriptions: Disp Refills Lisinopril 40 MG Oral Tablet 90 Tab*1 Sig: TAKE ONE TABLET BY MOUTH EVERY DAYAuthorizing Provider: FLOYD YEUNG User: FLOYD QUEVEDO documented in this encounter Plan of Treatment Upcoming Encounters Date Type Department Care Team (Late st Contact Info) Description 07/06/2023 2:20 PM EDT Office Visit Family Practice [facility] [address] [place] [address] Floyd Yeung, DO [address] [place] [address] 11/11/2023 10:00 AM EDT Telemedicine Neurology [facility] [address] [facility], [place] [phone] Yfn Rizzo, DO [address] [place], [place] [phone] Health Maintenance Due Date Last Done Comments *BISPHONATE OR OTHER ACCEPTABLE MEDICATION NEEDED FOR OSTEOPOROSIS (REFER TO SMARTSET #[id number]) 06/21/2022 DTaP,Tdap,and Td Vaccines (2 - Td or Tdap) 07/06/2022 07/06/2012, 01/15/2010, 08/14/1999, Additional history exists DXA Scan 10/07/2022 10/07/2020, 09/05, 07/24/2013, Additional history exists COVID-19 Vaccine (2022- season) 2022 02/10/2021, 04/30/2020, 04/30/2020, Additional history exists Influenza Vaccine (FLU shot) (#1) 2022 01/12/2016, 01/12/2016, 11/20/2014 Mammogram 05/28/2023 05/27/2022, 05/05, 05/16/2020, Additional history exists TSH 06/16/2023 06/15/2022, 05/05, 04/11/2020, Additional history exists GFR 12/30/2023 12/29/2022, 08/0 04/2022, 06/15/2022, Additional history exists Depression Screening 01/27/2024 01/26/2023 Albumin/Creatinine Ratio 05/22/2024 022, 04/23/2020, 08/02/2017 Pneumococcal Vaccine: 65+ Years Completed 11/20/2014, 01/19/2008 Zoster Vaccines Completed 12/06/2018, 09/06, 02/25/2010 VITAMIN D LEVEL ONCE IN A LIFETIME-USE SMARTSET# [id number] Completed 05/22/2021, 07/18/2008 GARDASIL-HPV IMMUNIZATION SERIES Aged [...] 150/90 documented in this encounter Care Teams Specialist Field Engineer Relationship Specialty Start Date End Date Floyd Yeung DO [address] [place] [address] PCP - General Family Medicine 07/13/16 documented as of this encounter
--- OUTSIDE RECORDS SUMMARY | 2023-04-29 22:46 | External Medical Summary | Summary of Care ---
Author Name Unknown Organization [facility] Address [address] [place] [address] Phone [phone] Care Team Providers Care Hvac Services Professional Name Role Phone BlakeRose hinds Primary Care Provider [phone] Reason for Visit * Reason Comments Medication Refill Encounter Details Date Type Department Care Team (Late st Contact Info) Description 02/18/2023 Refill Neurology [facility] [place] [address] [place] [address] Yfn Rizzo, DO [address] [place] [address] Allergies Active Allergy Reactions Criticality Noted Date Comments Naproxen 05/03/2003 edema and wt gain documented as of this encounter (statuses as of 02/22/2023) Medications Medication Sig Dispensed Refills Start Date [...] as of this encounter (statuses as of 02/22/2023) Active Problems Problem Noted Date Diagnosed Date [...] as of this encounter (statuses as of 02/22/2023) Resolved Problems Problem Noted Date Diagnosed Date Resolved Date Other specified peripheral vascular diseases 1 04/11/2020 Encounter for examination fo r normal comparison and control in clinical research program 01/09/2018 01/31/2018 Overview: [facility] DETECT Study: Project # [id number], Forest Pathologist: Ang Rangel, PhD. SUMMARY: Goal: Establish test [...] contact study staff at ; after hours Forest Pathologist via the [facility] hospital paster operator . Diagnosis changed due to Research [...] as of this encounter (statuses as of 02/22/2023) Immunizations Name Administration Dates Next Due COVID-19 [...] encounter Miscellaneous Notes * Telephone Encounter - Radha Urrutia OSA - 02/22/2023 1:39 PM ESTRefused Prescriptions: Disp Refills Donepezil HCl 10 MG Oral Tablet (Aricept) 100 Ta*2 Sig: TAKE ONE TABLET BY MOUTH EVERY MORNING WITH BREAKFASTRefused By: AVE MENDOZAeason for Refusal: Course of treatment completeReason for Refusal Comment: patient will be stopping the medication-------- * Telephone Encounter - Radha Urrutia OSA - 02/22/2023 1:39 PM EST Appt scheduled * Telephone Encounter - Arianna Mejia OSA - 02/20/2023 11:37 AM EST I called and left message with pts for pts daughter to follow up, when the pt calls back please schedule per below. Thank you! * Telephone Encounter - Kay Mendoza LPN - 02/18/2023 1:32 PM ESTRefused Prescriptions: Disp Refills Donepezil HCl 10 MG Oral Tablet (Aricept) 100 Ta*2 Sig: TAKE ONE TABLET BY MOUTH EVERY MORNING WITH BREAKFAST Refused By: KAY MENDOZA Reason for Refusal: Course of treatment complete Reason for Refusal Comment: patient will be stopping the medication * Telephone Encounter - Kay Mendoza LPN - 02/18/2023 1:27 PM EST Patient verified identity by spelling of last name and date. Outgoing call to Hannah to advise of message from Dr. Rizzo. Patient advised that yes she is still [...] stop the medication. * Telephone Encounter - Yfn Rizzo DO - 02/18/2023 12:12 PM ESTPending Prescriptions: Disp Refills Donepezil HCl 10 MG Oral Tablet (Aricept) 100 Ta*2 Sig: TAKE ONE TABLET BY MOUTH EVERY MORNING WITH BREAKFAST * Telephone Encounter - Yfn Rizzo DO - 02/18/2023 12:09 PM EST Patient [...] Ward or myself. Keep 11/2023 appointment. Thanks! Yfn Rizzo DO 02/18/2023 12:11 PM * Telephone Encounter - Lizbeth Patterson LPN - 02/18/2023 10:46 AM ESTPending Prescriptions: Disp Refills Donepezil HCl 10 MG Oral Tablet (Aricept) 100 Ta*2 Sig: TAKE ONE TABLET BY MOUTH EVERY MORNING WITH BREAKFAST * Telephone Encounter - Priscilla Shore [facility] - 02/18/2023 10:26 AM ESTPending Prescriptions: Disp Refills Donepezil HCl 10 MG Oral Tablet (Aricept) 100 Ta*2 Sig: TAKE ONE TABLET BY MOUTH EVERY MORNING WITH BREAKFAST * Telephone Encounter - Priscilla Shore [facility] - 02/18/2023 10:20 AM EST Unable to [...] PharmD Clinical Pharmacist [facility] ([facility]) [phone] 02/18/2023, 10:21 AM Pending Prescriptions: Disp Refills [...] date the medication was ordered: 04/24/2022 Pharmacy: [facility] Is this request for a [...] 04/08/2023 2:40 PM EST [facility] [place] [address] [facility] [address] Nataliya Ward CRNP [address] [facility] [place] [id number] 07/06/2023 2:20 PM EDT Office Visit Family Practice [facility] [address] [facility] [place] [address] Rose Egan, DO [address] [place] [address] 11/11/2023 10:00 AM EDT Telemedicine Neurology [facility] [place] [address] [place] [address] Yfn Rizzo, DO [address] [facility] [address] Health Maintenance Due Date Last Done [...] 04/11/2020, Additional history exists GFR 12/30/2023 12/29/2022, 08/04/2022, 06/15/2022, Additional history exists Depression Screening 02/17/2024 02/16/2023 Albumin/Creatinine Ratio 05/22/2024 022, 04/23/2020, 08/02/2017 Pneumococcal Vaccine: 65+ Years Completed 11/20/2014, 01/19/2008 Zoster Vaccines Completed 12/06/2018, 09/06, 02/25/2010 VITAMIN D LEVEL ONCE IN A LIFETIME-USE SMARTSET# [id number] Completed 05/22/2021, 07/18/2008 GARDASIL-HPV IMMUNIZATION SERIES Aged [...] filedocumented as of this encounter Care Teams Hvac Services Professional Relationship Specialty Start Date End Date Rose Egan DO [address] [place] [address] PCP - General Family Medicine 07/13/16 documented as of this encounter
--- OUTSIDE RECORDS SUMMARY | 2023-04-29 22:46 | External Medical Summary | Summary of Care ---
Author Name Unknown Organization [facility] Address [address] [facility] [place] [address] Phone [phone] Care Team Providers Care Combat Systems Officer Name Role Phone Floyd Yeung DO Primary Care Provider [phone] Reason for Visit * Reason Onset Date Comments Medication Refill 02/21/2023 Encounter Details Date Type Department Care Team (Late st Contact Info) Description 02/21/2023 Refill Family Practice [facility] [address] [place] [address] Floyd Yeung DO [address] [place] [address] HTN, goal below 150/90 Allergies Active Allergy [...] in clinical research program 01/09/2018 01/31/2018 Overview: [facility] DETECT Study: Project # [id number], Art Conservator: Ang Rangel, PhD. SUMMARY: Goal: Establish test [...] contact study staff at ; after hours Art Conservator via the [facility] blow mold machine operator . Diagnosis changed due to [...] as of this encounter Miscellaneous Notes * Addendum Note - Conchita Horne CPhT [...] A DAY WITH FOOD Authorizing Provider: FLOYD YEUNG Ordering User: BENIGNO MILLER Last Visit: 12/29/2022 (in office), Visit date not found (telemedicine) 07/06/2023 Thank you, Conchita Horne, Gear Tester I [facility] 02/25/2023, 9:29 AM * Telephone Encounter - Benigno Miller RPh - 02/22/2023 10:25 AM ESTSigned Prescriptions: Disp Refills Potassium Chloride Kristy ER 20 MEQ Oral Tab*180 Ta*1 Sig: TAKE ONE TABLET BY MOUTH TWICE A DAY WITH FOOD Authorizing Provider: FLOYD YEUNG Ordering User: BENIGNO MILLER * Telephone Encounter - Roly Toussaint, linen attendant - 02/21/2023 11:03 AM EST Did you pend patient's preferred pharmacy and medication before forwarding?yes Pharmacy: [email or web address] Pending Prescriptions: Disp Refills [...] PM EST Office Visit Neurology [facility] [place] [address] [place] [address] Nataliya Ward CRNP [address] [place] [address] 07/06/2023 2:20 PM EDT Office Visit Family [facility] [address] [place] [address] Floyd Yeung, DO [address] [place] [address] 11/11/2023 10:00 AM EDT Telemedicine Neurology [facility] [place] [address] [place] [address] Yfn Rizzo, DO [address] [facility] [address] Health Maintenance Due Date Last Done Comments [...] D LEVEL ONCE IN A LIFETIME-USE SMARTSET# [id number] Completed 05/22/2021, 07/18/2008 GARDASIL-HPV IMMUNIZATION SERIES Aged [...] 150/90 documented in this encounter Care Teams Combat Systems Officer Relationship Specialty Start Date End Date Floyd Yeung DO [address] [place] [address] PCP - General Family Medicine 07/13/16 documented as of this encounter
--- OUTSIDE RECORDS SUMMARY | 2023-04-29 22:46 | External Medical Summary | Summary of Care ---
Author Name Unknown Organization [facility] Address [address] [facility] [place] [address] Phone [phone] Care Team Providers Care Supervisor Roller Printing Name Role Phone Rose Egan DO Primary Care Provider [phone] Reason for Visit * Reason Comments Re-Check 6 mo check, alzheime r's, periods of agitation Encounter Details Date Type Department Care Team (Late st Contact Info) Description 12/29/2022 1:00 PM EDT Office Visit Family Practice [facility] [address] [place] [address] Rose Egan DO [address] [place] [address] Mood disturbance*; Dementia without behavioral disturbance (HCC); Hypokalemia; Risk and functional assessment; HTN, goal below 150/90 Allergies Active Allergy Reactions Criticality Noted Date Comments Naproxen 05/03/2003 edema and wt gain documented as of this encounter (statuses as of 01/14/2023) Medications Medication Sig Dispensed Refills Start Date [...] MEDICATIONS 90 Tablet 3 08/30/2022 4 Active Lisinopril 40 MG Oral TabletIndications: HTN, goal below 150/90 TAKE ONE TABLET BY MOUTH EVERY DAY 90 Tablet 2 05/01/2022 4 Active Donepezil HCl 10 MG Oral [...] the morning. 90 Tablet 3 12/29/2022 Active Escitalopram Oxalate 10 MG Oral Tablet (Lexapro)Indicatio ns:Mood disturbance Take 1 Tablet by mouth in the morning. 30 Tablet 5 10/06/2022 3 Discontinue d(Refill) documented as of this encounter (statuses as of 01/14/2023) Active Problems Problem Noted Date Diagnosed Date [...] as of this encounter (statuses as of 01/14/2023) Resolved Problems Problem Noted Date Diagnosed Date Resolved Date Other specified peripheral vascular diseases 1 04/11/2020 Encounter for examination fo r normal comparison and control in clinical research program 01/09/2018 01/31/2018 Overview: [facility] DETECT Study: Project # [id number], Teasel Setter: Ang Rangel, PhD. SUMMARY: Goal: Establish test [...] contact study staff at ; after hours Teasel Setter via the [facility] hospital oil heater operator . Diagnosis changed due to Research [...] as of this encounter (statuses as of 01/14/2023) Immunizations Name Administration Dates Next Due COVID-19 [...] Answer Date Recorded PHQ Adult Total Score 0 06/15/2022 Hunger Vital Sign Answer Date Recorded Worried About Running Out of Food in the Last Ye ar Never true 04/06/2019 Ran Out of Food in the Last Year Never true 04/06/2019 Sex and Gender Information Value Date Recorded Sex Assigned at Female 08/04/2018 8:00 AM EDT Gender Identity Female 08/04/2018 8:00 AM EDT Sexual Orientation Straight 08/04/2018 8: 00 AM EDT Job Start Date Occupation Industry Not on file Not on file Not on file documented as of this encounter Last Filed Vital Signs Vital Sign Reading Time Taken Comments Blood Pressure 158/60 12/29/2022 12:51 PM EDT Pulse 72 12/29/2022 12:51 PM EDT Temperature 37.1 C (98.8 F) 12/29/2022 12:51 PM E DT Respiratory Rate 14 12/29/2022 12:51 PM EDT Oxygen Saturation - - Inhaled Oxygen Concentration - - Weight 61.7 kg (136 lb) 12/29/2022 12:51 PM EDT Height - - Body Mass Index 25.7 11/25/2021 4:01 PM EDT documented in this encounter Patient Instructions * Patient Instructions* Christen Reyez RN - 12/29/2022 12:51 PM EDT Patient Instructions - Fall Prevention (This education is for all patients over 65 regardless of symptoms) Remember to take your current medications as prescribed. In order to prevent falls, you are encouraged to: Exercise Utilize assistive/adaptive devices Avoid multifocal lenses when walking Avoid hazards in home Maintain a regular toileting schedule Any questions please contact our office. Preventing Falls in the Home (This education is for all patients over 65 regardless of symptoms) As you get older, falls are more likely. Thats because your reaction time slows. Your muscles and joints may also get stiffer, making them less flexible. Illness, medications, and vision changes can also affect your balance. A fall could leave you unable to live on your own. To make your home safer, follow these tips: Floors Put nonskid pads under area rugs Remove throw rugs Replace worn floor coverings Tack carpets firmly to each step on carpeted stairs. Put nonskid strips on the edges of uncarpeted stairs Keep floors and stairs free of clutter and cords Arrange furniture so there are clear pathways Clean up any spills right away Bathrooms Install grab bars in the tub or shower Apply nonskid strips or put a nonskid rubber mat in the tub or shower Sit on a bath chair to bathe Use bathmats with nonskid backing Lighting Keep a flashlight in each room Put a nightlight along the pathway between the bedroom and the bathroom Tee Patient Education Copyright 2008 - 2010 Tee except where otherwise noted Preventing Falls: Exercises to Improve Balance, Flexibility, Strength, and Staying Power (This education is for all patients over 65 regardless of symptoms) Certain types of exercises may help make you less likely to fall. Try the ones below. Or do other exercises that your healthcare provider suggests. Depending on your health, you may need to start slowly. Dont let that stop you. Even small amounts of exercise can help you. Be sure to talk to yourhealthcare provider before starting any exercise program. Improve Balance Many types of exercise can help improve balance. Alex chi and yoga are good examples. Heres another one to try. You can do it anytime and almost anywhere. Stand next to a counter or solid support. Push yourself up onto your tiptoes. Hold for 5 seconds. If you start to lose your balance, hold on to the counter. Rest and repeat 5 times. Work up to holding for 20 to 30 seconds, if you can. Increase Flexibility Being more flexible makes it easier for you to move around safely. Try exercises like the seated hamstring stretch. Sit in a chair and put one foot on a stool. Straighten your leg and reach with both hands down either side of your leg. Reach as far down your leg as you can. Hold for about 20 seconds. Go back to the starting position. Then repeat 5 times. Switch legs. Build Strength Resistance exercises help build strength. You can do them without equipment. Or you can use weights, elastic bands, or special machines. One such exercise is called the biceps curl. You can hold a 1 pound weight or even a can of soup. Do this exercise at least 3 times a week. Strive for everyday. Sit up straight in a chair. Keep your elbow close to your body and your wrist straight. Bend your arm, moving your hand up to your shoulder. Then slowly lower your arm. Repeat 5 times. Switch to the other arm. Build Your Staying Power Aerobic exercises make your heart and lungs stronger so you can keep moving longer. Walking and swimming are two of the best types of exercises you can do. Using a stationary bike is great, too. Find an aerobic exercise that you enjoy. Start slowly and build up. Even 5 minutes is helpful. Aimfor a goal of 30 minutes, at least 3 times a week. You dont have to do 30 minutes in one session. Break it up and walk a little throughout the day. More Helpful Tips Start easy. Slowly work up to doing more. Talk with your healthcare provider about the best exercises for you. Call senior centers or health clubs about exercise programs. If needed, have a family member watch you walk every so often to check your stability. Exercise with a friend. Choose an activity you both enjoy. Try exercises that you can do anytime, anywhere. Here are two examples. Have someone with you when you first try these: Practice walking by placing one foot right in front of the other. Stand up and sit down 10 times. Repeat this throughout the day. [employer] [place]anche Patient Education Copyright 2008 [employer]anche except where otherwise noted. Preventing Falls: Moving Safely Using a Cane or Walker (This education is for all patients over 65 regardless of symptoms) Keep the cane away from your feet so you dont trip. A walking aid, such as a cane or walker, can help you stay more independent and avoid falls. Remember to keep your walking aid within easy reach when youre in a chair or in bed. And learn how to use it safely so you dont injure yourself. Using a Cane If you have a stronger side, hold the cane on that side. Get your balance. Move the cane and your weaker leg forward. Support your weight on both the cane and your weaker side. Step with your stronger leg. Start again from step 1. If youre using a folding walker, be sure you know how to lock it open. Check that its locked open before each use. Using a Walker Roll the walker (or lift it, if youre using one without wheels) forward about 12 inches. Step forward with your weaker leg first. Use the walker to help keep your balance. Bring your other foot forward to the center of the walker. Start again from step 1. Helpful Tips Check with your healthcare provider about the right walking aid to use. Ask about a walker with a seat attached. Check the tips of your cane or walker to make sure they have nonskid covers. Move slowly from room to room. Dont marti. Sit down to get dressed. Use a joyce pack or backpack to keep your hands free. Get help for jobs that mean climbing, even on a stepstool. [employer] [place] Patient Education Copyright 2008 [employer]anche except where otherwise noted. Urinary Incontinence Plan of Care Documentation: (This education is for all patients over 65 regardless of symptoms) Current medications reconciled. Patient encouraged to: Practice kegal exercises Provide education materials Use the restroom every 2 hours throughout the day Limit caffeine, alcohol, spicy foods and acidic foods Keep a bladder diary Limit fluid intake 3-4 hours before bed Lose weight Prevent constipation Take fluid pills at a time when you can get to the bathroom quickly Control sugar better if diabetic Limit fluid intake to 60 oz. per day Wear support stockings (TEDs)if you have edema Christen Reyez RN 12/29/2022 Kegel Exercises Kegel exercises dont require special clothing or equipment. Theyre easy to learn and simple to do. And if you do them right, no one can tell youre doing them, so they can be done almost anywhere. Your doctor, nurse, or physical therapist can answer any questions you have and help you get started. A Weak Pelvic Floor The pelvic floor muscles may weaken due to aging, and vaginal childbirth, injury, surgery, chronic cough, or lack of exercise. If the pelvic floor is weak, your bladder and other pelvic organs may sag out of place. The urethra may also open too easily and allow urine to leak out. Kegel exercises can help you strengthen your pelvic floor muscles so they can better support the pelvic organs and control urine flow. How Kegel Exercises Are Done Try each of the Kegel exercises described below. When youre doing them, try not to move your leg, buttock, or stomach muscles. While youre urinating, try to stop the flow of urine. Start and stop it as often as you can. Contract as if you were stopping your urine stream, but do it when youre not urinating. Tighten your rectum as if trying not to pass gas. Contract your anus, but dont move your buttocks. Helpful Hints Do your Kegels as often as you can. The more you do them, the faster youll feel the results. Pick an activity you do often as a reminder. For instance, do your Kegels every time you sit down. Tighten your pelvic floor before you sneeze, get up from a chair, cough, laugh, or lift. This protects your pelvic floor from injury and can help prevent urine leakage. Try to hold each Kegel for a slow count to five. You probably wont be able to hold them for thatlong at first, but keep practicing. It will get easier as your pelvic floor gets stronger. Eventually, special weights that you place in your vagina may be recommended to help make your Kegels even more effective. Tee Patient Education Copyright 2008 - 2010 Tee except where otherwise noted. Here are some helpful tips for your urinary incontinence: (This education is for all patients over 65 regardless of symptoms) Practice Kegel exercises Use the restroom every 2 hours throughout the day Limit caffeine, alcohol, spicy foods, and acidic foods Keep a bladder diary Limit fluid intake 3-4 hours before bed Lose weight Prevent constipation Take fluid pills at a time when can get to the bathroom quickly Control sugar better if diabetic Limit fluid intake to 60 oz. per day Any questions, please feel free to contact our office. documented in this encounter Progress Notes * Christen Reyez RN - 12/29/2022 12:51 PM EDT Fall Risk Plan of Care Documentation: - Current medications reconciled Patient encouraged to: - Exercise - Provide education materials for Core strengthening - Utilize assistive/adaptive devices - Provide education materials - Avoid multifocal lenses when walking - Avoid hazards in home - Provide education materials - Maintain a regular toileting schedule Christen Reyez RN 12/29/2022 * Rose Egan, - 12/29/2022 12:49 PM EDT Subjective: Hannah Westfall is a 82 year old female. No chief complaint on file. HPI: Pt presents for folllow up with her daughter. They note that she has periods of agitation - about 1-2 times a week. Often triggered by trying to help her with tasks she feels she can do. At times says she doesn't want to live anymore. Denies plan. Has been able to connect with her friends a bit more. This makes her happy. Daughter plans to do site visits at [place]/assisted living facilities. Did start lexapro - daughter notices some increased energy, motivation. No obvious side effects. 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 Glucosamine Sulfate 1000 MG Oral Capsule 1,000 mg. Fluticasone Propionate 50 MCG/ACT Nasal Suspension two sprays each nostril once daily- as needed for allergies 3 Each 3 Potassium Chloride Kristy ER 20 MEQ Oral Tablet Extended Release TAKE ONE TABLET BY MOUTH TWICE A DAYWITH FOOD 180 Tablet 3 Levothyroxine Sodium 75 MCG Oral Tablet (Levoxyl) TAKE 1 TABLET BY MOUTH DAILY AT LEAST 30 MINUTES PRIOR TO FIRST MEAL OF THE DAY OR OTHER MEDICATIONS 90 Tablet 3 Lisinopril 40 MG Oral Tablet TAKE ONE TABLET BY MOUTH EVERY DAY 90 Tablet 2 Donepezil HCl 10 MG Oral Tablet (Aricept) TAKE ONE TABLET BY MOUTH EVERY MORNING WITH BREAKFAST 100Tablet 2 Pravastatin Sodium 40 MG Oral Tablet (Pravachol) TAKE ONE TABLET BY MOUTH EVERY DAY 90 Tablet 3 Latanoprost 0.005 % Ophthalmic Solution (Xalatan) INSTILL ONE DROP INTO EACH EYE EVERY EVENING 10 mL 3 Chlorthalidone 25 MG Oral Tablet (Hygroton) TAKE ONE TABLET BY MOUTH EVERY DAY IN THE MORNING 100 Tablet 1 Escitalopram Oxalate 10 MG Oral Tablet (Lexapro) Take 1 Tablet by mouth in the morning. 30 Tablet 5 No current facility-administered medications for this visit. Past Medical History: Diagnosis Date Dyslipidemia HTN, goal below 150/90 Hypothyroidism Past Surgical History: Procedure Laterality Date COLONOSCOPY, DIAGNOSTIC (RECTUM) 01/19/2013 COLONOSCOPY FLEXIBLE PROXIMAL DIAGNOSTIC performed by Kristy Priest DO at [facility] COLONOSCOPY, GI REFERRAL OP 12/03/02 internal hemorrhoids-Dr. Mccray DEXA SCAN/BONE MINERAL AXIAL 12/08 + 1.1 , + 0.46 readings- repeat in 5 years REMOVE CATARACT, INSERT LENS PROSTH Left 02/05/2015 Dr. Balderas REMOVE CATARACT, INSERT LENS PROSTH Right 02/19/2015 Dr. Balderas REMOVE TONSILS & ADENOIDS, UNDER 12 TOTAL HIP REPLACEMENT & PROSTHESIS Right 09/2014 Dr. Rodriguez US BONE DENSITY PERIPH NON [facility] 05/01/98 Normal VAGINAL DELIVERY ONLY x 2 VASC DUPLEX CAROTID BILAT 07/2013 < 50% occlusion bilaterally VASC DUPLEX CAROTID BILAT 06/2015 <50% bilaterally Review of patient's allergies indicates: Allergen Reactions Naproxen edema and wt gain Objective: BP 158/60 (BP Site: Left Arm, BP Position: Sitting, BP Cuff Size: Regular) | Pulse 72 | Temp 37.1 C (98.8 F) (Tympanic) | Resp 14 | Wt 61.7 kg (136 lb) | BMI 25.70 kg/m | BSA 1.63 m Review of Systems: As per HPI, all other ROS neg. Physical Exam: General: alert, healthy and no distress Heart: regular rate & rhythm, no murmurs and no gallops Lungs: chest symmetric with normal AP diameter, no chest deformities noted, lungs clear to auscultation Extremities: no joint deformities, effusion, or inflammation, no edema Mood disturbance (Primary) - Escitalopram Oxalate 10 MG Oral Tablet (Lexapro); Take 1 Tablet by mouth in the morning. Needs new rx for ssri Dementia without behavioral disturbance (HCC) Follow up with neurology Hypokalemia - BASIC METABOLIC PANEL; Future; Expected date: 12/29/2022 Risk and functional assessment HTN, goal below 150/90 Follow up: in 6 month(s). Rose Egan DO documented in this encounter Plan of Treatment Upcoming Encounters Date Type Department Care Team (Late st Contact Info) Description 07/06/2023 2:20 PM EDT Office Visit Family Practice [facility] [address] [place] [address] Rose Egan DO [address] [place] [address] 11/11/2023 10:00 AM EDT Telemedicine Neurology [facility] [address] [place] [address] Yfn Rizzo, DO [address] [place] [address] Health Maintenance Due Date Last Done Comments [...] 05/28/2023 05/27/2022, 05/05, 05/16/2020, Additional history exists Depression Screening 06/16/2023 06/15/2022 TSH 06/16/2023 06/15/2022, 05/05, 04/11/2020, Additional history exists GFR 12/30/2023 12/29/2022, 08/0 04/2022, 06/15/2022, Additional history exists Albumin/Creatinine Ratio 05/22/2024 022, 04/23/2020, 08/02/2017 Pneumococcal Vaccine: 65+ Years Completed 11/20/2014, 01/19/2008 Zoster Vaccines Completed 12/06/2018, 09/06, 02/25/2010 VITAMIN D LEVEL ONCE IN A LIFETIME-USE SMARTSET# [id number] Completed 05/22/2021, 07/18/2008 GARDASIL-HPV IMMUNIZATION SERIES Aged [...] Not on filedocumented as of this encounter Results * BASIC METABOLIC PANEL (12/29/2022 1:48 PM EDT) BUN 16 6 - 20 mg/dL 12/29/2022 3:03 PM EDT [facility] Creatinine 0.8 0.5 - 1.0 mg/dL 12/29/2022 3:03 PM EDT [facility] Estimated Glomerular Filtration Rate 73 >=60 mL/min 12/29/2022 3:03 PM EDT [facility] Comment:eGFR is calculated b ased on the CKD-EPI 2020 equation Sodium 140 135 - 146 mmol/L 12/29/2022 3:03 PM EDT [facility] Potassium 4.0 3.5 - 5.1 mmol/L 12/29/2022 3:03 PM EDT [facility] Chloride 102 98 - 107 mmol/L 12/29/2022 3:03 PM EDT [facility] CO2 28 22 - 32 mmol/L 12/29/2022 3:03 PM EDT [facility] Anion Gap 10 7 - 15 mmol/L 12/29/2022 3:03 PM EDT [facility] Glucose 76 70 - 120 mg/dL 12/29/2022 3:03 PM EDT [facility] Calcium 9.7 8.4 - 10.2 mg/dL 12/29/2022 3:03 PM EDT [facility] Blood Venous blood specimen / Unknown Venipuncture / Unknown 12/29/2022 1:48 PM EDT 12/29/2022 1:48 PM EDT Rose Egan DO LAB BLOOD ORDERABLE S [facility] [address] [facility] [place] [address] documented in this encounter Visit Diagnoses Diagnosis Mood disturbance- Primary Dementia without behavioral disturbance (HCC) Dementia, unspecified, without behavioral disturbance Hypokalemia Hypopotassemia Risk and functional assessment Screening for unspecified condition HTN, goal below 150/90 documented in this encounter Care Teams Supervisor Roller Printing Relationship Specialty Start Date End Date Rose Egan DO [address] [place] [address] PCP - General Family Medicine 07/13/16 documented as of this encounter"
--- OUTSIDE RECORDS SUMMARY | 2023-04-29 22:46 | External Medical Summary | Summary of Care ---
Author Name Unknown Organization [facility] Address [address] [facility] [place] [address] Phone [phone] Care Team Providers Care Gas Station Attendant Name Role Phone Floyd Yeung DO Primary Care Provider [phone] Reason for Visit * Reason Onset Date Comments Medication Refill 02/21/2023 Encounter Details Date Type Department Care Team (Late st Contact Info) Description 02/21/2023 Refill Family Practice [facility] [address] [place] [address] Floyd Yeung DO [address] [place] [address] HTN, goal below 150/90 Allergies Active Allergy [...] clinical research program 01/09/2018 01/31/2018 Overview: [facility] DETECT Study: Project # [id number], Siebel Administrator: Ang Rangel, PhD. SUMMARY: Goal: Establish test [...] contact study staff at ; after hours Siebel Administrator via the [facility] hospital drill rig operator . Diagnosis changed due to Research [...] encounter Miscellaneous Notes * Telephone Encounter - Benigno Miller [facility] - 02/22/2023 10:25 AM ESTSigned Prescriptions: Disp Refills Potassium Chloride Kristy ER 20 MEQ Oral Tab*180 Ta*1 Sig: TAKE ONE TABLET BY MOUTH TWICE A DAY WITH FOOD Authorizing Provider: FLOYD YEUNG Ordering User: BENIGNO MILLER * Telephone Encounter - Roly Toussaint, blood bank laboratory professional - 02/21/2023 11:03 AM EST Did you pend patient's preferred pharmacy and medication before forwarding?yes Pharmacy: [facility] Pending Prescriptions: Disp Refills [...] 04/08/2023 2:40 PM EST Office Visit Neurology [facility] [address] [facility] [place] [address] Nataliya Ward CRNP [address] [place] [address] 07/06/2023 2:20 PM EDT Office Visit Family [facility] [address] [facility] [place] [address] Floyd Yeung DO [address] [facility] [place] [address] 11/11/2023 10:00 AM EDT Telemedicine Neurology [facility] [address] [facility] [place] [address] Yfn Rizzo DO [address] [place], [place] [id number] Health Maintenance Due Date Last Done Comments [...] D LEVEL ONCE IN A LIFETIME-USE SMARTSET# [id number] Completed 05/22/2021, 07/18/2008 GARDASIL-HPV IMMUNIZATION SERIES Aged [...] 150/90 documented in this encounter Care Teams Gas Station Attendant Relationship Specialty Start Date End Date Floyd Yeung DO [address] [place] [address] PCP - General Family Medicine 07/13/16 documented as of this encounter
[2023-04-30] MEDS: lisinopril 40 MG TAB PO SCH (08:16)
--- NOTE | 2023-04-30 17:53 | Hospitalist Progress Note ---
Date of Service April 30, 2023 Assessment & Plan (1) Asymptomatic hypertensive urgency: Plan: Hypertensive urgency Amlodipine 5 mg p.o. daily started Continue usual lisinopril Monitor closely 04/30 BP improving can still increase Amlodipine if needed Dementia with behavioral disturbance Psychiatry service consulted Recommended as needed Zyprexa for agitation Will need placement as patient exhibiting worsened aggressive behavior at home Patient is medically stable for transfer to facility and bed search can be initiated today hyperlipidemia, on statin Rx hypothyroidism, euthyroid Episodic suicidality, patient currently denies thoughts/intent DVT prophylaxis. Lovenox subcu Full code Admission and Anticipated Discharge Date Admission Date: April 28, 2023 Subjective ff up for dementia with behavioral disturbance, etc seen resting in bed pleasant, comfortable states she feels fine overall no chest pain, dyspnea, palpitations, dizziness no headache no other symptoms Review of Systems Review of Systems: all noted and negative except for above Physical Exam Physical Exam: General- oriented x 2, not in distress, speaks in sentences with no effort or accessory muscle use Eyes- anicteric Neck- no JVD Lungs- clear breath sounds bilaterally Heart- normal rate, regular rhythm; no murmurs Abdomen- normal bowel sounds, nondistended, soft, nontender Extremities- no pretibial edema, no calf tenderness Neuro- alert, oriented x 2; no gross focal neurologic deficits Skin- warm & dry Results & Data Results & Data Vital Signs (Past 12 Hours) Vital Signs Temp Pulse Pulse Resp BP Pulse Ox O2 Del Method 04/30/23 17:31 81 04/30/23 15:48 36.7 C 72 18 149/74 H 95 Room Air 04/30/23 11:30 37.0 C 72 18 152/74 H 95 Room Air 04/30/23 08:24 51 L 04/30/23 08:20 36.6 C 60 16 185/81 H 94 Room Air all noted and reviewed including below
[2023-05-01] MEDS: amLODIPine BESYLATE 5 MG TAB PO SCH (10:04)
[2023-05-01] MEDS: CHLORTHALIDONE 25 MG TAB PO SCH (10:04)
--- NOTE | 2023-05-01 14:27 | Hospitalist Progress Note ---
Date of Service May 01, 2023 Assessment & Plan (1) Asymptomatic hypertensive urgency: Plan: Hypertensive urgency Amlodipine 5 mg p.o. daily started Continue usual lisinopril Monitor closely 04/30 BP improving can still increase Amlodipine if needed 05/01 BP improving Continue amlodipine 5 mg p.o. daily, started this admission Continue usual lisinopril and chlorthalidone Dementia with behavioral disturbance Psychiatry service consulted Recommended as needed Zyprexa for agitation Will need placement as patient exhibiting worsened aggressive behavior at home Patient is medically stable for transfer to facility and bed search can be initiated today hyperlipidemia, on statin Rx hypothyroidism, euthyroid Episodic suicidality, patient currently denies thoughts/intent DVT prophylaxis. Lovenox subcu Full code Disposition pending Admission and Anticipated Discharge Date Admission Date: April 28, 2023 Subjective Follow-up for dementia with behavioral disturbance, etc. Seen resting in bed side chair, comfortable, not in distress States she feels fine overall Oriented x 2, answering simple questions appropriately Denies headache, dizziness, nausea vomiting, chest pain, palpitations, shortness of breath No other new symptoms Review of Systems Review of Systems: all noted and negative except for above Physical Exam Physical Exam: General- oriented x 2, not in distress, speaks in sentences with no effort or accessory muscle use Eyes- anicteric Neck- no JVD Lungs- clear breath sounds bilaterally, no rales/wheezes Heart- normal rate, regular rhythm; no murmurs Abdomen- normal bowel sounds, nondistended, soft, nontender Extremities- no pretibial edema, no calf tenderness Neuro- alert, oriented x 2; no gross focal neurologic deficits Skin- warm & dry Results & Data Results & Data Vital Signs (Past 12 Hours) Vital Signs Temp Pulse Pulse Resp BP BP Pulse Ox 05/01/23 12:44 36.5 C 65 18 118/68 97 05/01/23 08:13 36.7 C 62 18 182/92 H 98 05/01/23 08:00 61 05/01/23 05:12 36.7 C 66 2 L 168/72 H 95 O2 Del Method 05/01/23 12:44 Room Air 05/01/23 08:13 Room Air 05/01/23 08:00 05/01/23 05:12 Room Air all noted and reviewed including below
[2023-05-02 07:42] LABS: Creatinine Clr Calc Pharmacy 51.9 ml/min; Est GFR (African American) 76.1 ml/min; Est GFR (Non-African American) 65.6 ml/min
[2023-05-02] MEDS: amLODIPine BESYLATE 5 MG TAB PO SCH (09:41)
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
--- NOTE | 2023-05-02 19:07 | Hospitalist Progress Note ---
Date of Service May 02, 2023 Assessment & Plan (1) Asymptomatic hypertensive urgency: Plan: Hypertensive urgency Amlodipine 5 mg p.o. daily started Continue usual lisinopril Monitor closely 04/30 BP improving can still increase Amlodipine if needed 05/01 BP improving Continue amlodipine 5 mg p.o. daily, started this admission Continue usual lisinopril and chlorthalidone Dementia with behavioral disturbance Psychiatry service consulted Recommended as needed Zyprexa for agitation Will need placement as patient exhibiting worsened aggressive behavior at home Patient is medically stable for transfer to facility and bed search can be initiated today hyperlipidemia, on statin Rx hypothyroidism, euthyroid Episodic suicidality, patient currently denies thoughts/intent DVT prophylaxis. Lovenox subcu Full code Disposition pending Admission and Anticipated Discharge Date Admission Date: April 28, 2023 Subjective f i Results & Data Results & Data Vital Signs (Past 12 Hours) Vital Signs Temp Pulse Pulse Resp BP BP Pulse Ox 05/02/23 15:23 36.7 C 85 18 110/62 95 05/02/23 15:23 63 05/02/23 11:42 36.4 C L 92 H 14 146/75 H 92 05/02/23 07:18 36.6 C 59 L 12 151/77 H 96 O2 Del Method 05/02/23 15:23 Room Air 05/02/23 15:23 05/02/23 11:42 Room Air 05/02/23 07:18 Room Air
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
--- NOTE | 2023-05-03 16:58 | Hospitalist Progress Note ---
Date of Service May 03, 2023 Assessment & Plan (1) Asymptomatic hypertensive urgency: Plan: Hypertensive urgency Amlodipine 5 mg p.o. daily started Continued on usual lisinopril and chlorthalidone Blood pressure improved Dementia with behavioral disturbance Suicidal ideation Psychiatry service consulted Recommended as needed Zyprexa for agitation Initially plan was to transfer to inpatient psych facility At this point, psychiatry service does not see indication for inpatient psych treatment Currently denies suicidal ideation Plan to transition to [facility] facility, awaiting acceptance hyperlipidemia - on statin Rx hypothyroidism - euthyroid DVT prophylaxis. Lovenox subcu Full code Disposition Awaiting acceptance to [facility] facility Admission and Anticipated Discharge Date Admission Date: April 28, 2023 Subjective Follow-up for dementia with behavioral disturbance, etc. Seen resting in bedside chair, having breakfast In good spirits States she feels fine overall No headache, dizziness, nausea no chest pain, dyspnea, palpitations, dizziness Ambulating in the halls with no problems No other new symptom Review of Systems Review of Systems: all noted and negative except for above Physical Exam Physical Exam: General- oriented x 2, not in distress, speaks in sentences with no effort or accessory muscle use Eyes- anicteric Neck- no JVD Lungs- clear BS BL no rales/wheezing Heart- normal rate, regular rhythm; no murmurs Abdomen- normal bowel sounds, nondistended, soft, nontender Extremities- no pretibial edema, no calf tenderness Neuro- alert, oriented x 2; no gross focal neurologic deficits Skin- warm & dry Results & Data Results & Data Vital Signs (Past 12 Hours) Vital Signs Temp Pulse Pulse Resp BP Pulse Ox O2 Del Method 05/03/23 15:45 36.8 C 74 18 147/69 H 96 Room Air 05/03/23 12:16 36.6 C 63 18 112/57 L 95 Room Air 05/03/23 07:56 36.7 C 59 L 18 128/76 98 Room Air 05/03/23 07:11 71 all noted and reviewed including below
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
--- NOTE | 2023-05-05 10:15 | Coding Query ---
CODING QUERY To promote full compliance with coding requirements relating to patient care, provider participation is requested in all cases of hospital education coordinator uncertainty. Please assist us with the question(s) below: Coding Question(s): Regarding Dementia, the ER documents Alzheimer's Dementia, and also documents, Severe Dementia, as well as agitation and aggressive behavior and combative, however, the documentation regarding Alzheimer's, and Severe Dementia is not documented past the ER, in specificity of Dementia. Please specify below, in your clinical opinion, regarding the Dementia, as far as Alzheimer's, and Severity documentation that was on the ER: ( ) Most likely Alzheimer's Dementia, Severe ( X ) Most likely Unspecified type and severity of Dementia ( ) Other Dementia, Please Specify Physician's Response(s): Thank you Opal Espinosa Principal Diagnosis: "that condition established after study, to be chiefly responsible for occasioning the admission of the patient to the hospital for care." Co-Existing Principal Diagnosis: "when two or more diagnoses equally meet the criteria for principal diagnosis as determined by the circumstances of admission, diagnostic work up, and/or therapy provided, and the Alphabetic Index, Tabular List, or another coding guideline does not provide sequencing direction, any one of the diagnoses may be sequenced first." "When the physician has documented what appears to be a current diagnosis in the body of the record, but has not included the diagnosis in the final diagnostic statement, the physician should be asked whether the diagnosis should be added." (Source [facility] 2 QTR90. p3-4) EDWARD
--- NOTE | 2023-05-05 10:22 | Coding Query ---
CODING QUERY To promote full compliance with coding requirements relating to patient care, provider participation is requested in all cases of employee relations assistant uncertainty. Please assist us with the question(s) below: Coding Question(s): The Discharge Summary documents, under Addtl Attending Provider Instructions, "You were admitted to the hospital due to high blood pressure. Amlodipine 5 mg once a day has been added to your medication regimen", and has a diagnosis of Asymptomatic hypertensive urgency, as well as Dementia with behavioral disturbance under Hospital Course, and the ER documents, "The patient was seen by psychiatry case management. She is not psychotic, she was not felt to be depressed. She was felt to be suffering from severe dementia. The patient is not safe for discharge home. She is a danger to herself and others. A medical admission was advised.". Please specify below, in your clinical opinion, the diagnosis(es), most responsible for occasioning the inpatient admission: ( X) Hypertension/Asymptomatic Hypertensive Urgency ( X ) Dementia with behavioral disturbance ( ) Other: Please Specify Physician's Response(s): Thank you Opal Espinosa Principal Diagnosis: "that condition established after study, to be chiefly responsible for occasioning the admission of the patient to the hospital for care." Co-Existing Principal Diagnosis: "when two or more diagnoses equally meet the criteria for principal diagnosis as determined by the circumstances of admission, diagnostic work up, and/or therapy provided, and the Alphabetic Index, Tabular List, or another coding guideline does not provide sequencing direction, any one of the diagnoses may be sequenced first." "When the physician has documented what appears to be a current diagnosis in the body of the record, but has not included the diagnosis in the final diagnostic statement, the physician should be asked whether the diagnosis should be added." ([facility] 2 QTR90. p3-4) EDWARD
== END 2023-05-04 13:22 | DRG 884 ==
LOC: ED 17:33 → SUATTDRO 23:07 → 2N 23:07

== ENCOUNTER 2023-11-29 09:37 | Inpatient (IN) ==
[2023-11-29] MEDS: OPTIRAY 320 125ml IV ONE (09:51)
[2023-11-29 10:00] LABS: iSTAT Creatinine 0.9 mg/dl (0.6-1.3); iSTAT Hemoglobin 11.6 g/dl (12.0-16.0); iSTAT Ionized Calcium 1.04 mmol/l (1.12-1.32)
--- NOTE | 2023-11-29 10:08 | CT Scan Report ---
CT SCAN OF THE BRAIN WITHOUT IV CONTRAST CLINICAL HISTORY: Neurological deficit. Stroke like symptoms. COMPARISON STUDY: CT of the brain dated 04/28/2023. TECHNIQUE: Unenhanced axial CT scan of the brain is performed from the vertex to the skull base. A do se lowering technique was utilized adhering to the principles of ALARA. FINDINGS: Brain parenchyma: There is age-related involutional change noting advanced confluent subcortical and periventricular microangiopathic disease. There is no hemorrhage, mass effect, or evidence of acute t erritorial ischemia by CT criteria. Murphy-white matter differentiation is preserved. No extra-axial fl uid collection is seen. Ventricles, sulci, cisterns: Prominent secondary to involutional change. Intracranial vasculature: There is atherosclerotic calcification of the cavernous carotid and vertebr al artery. Calvarium: Unremarkable. Sinuses and mastoids: The visualized paranasal sinuses are clear. There are trace mastoid effusions. Orbits: The bony orbits are grossly intact. There are bilateral ocular lens implants. IMPRESSION: There is no hemorrhage, mass effect, or evidence of acute territorial ischemia by CT jamar mackay. ACT 112: Negative or not required by law. Electronically signed by: Washington Beltran M.D. 11/29/2023 10:06 AM
--- NOTE | 2023-11-29 10:10 | CT Scan Report ---
CT ANGIOGRAM OF THE NECK CLINICAL HISTORY: Neurological deficit. Stroke like symptoms. COMPARISON STUDY: No priors. TECHNIQUE: Following the IV administration of 112 of Optiray 320, CT angiogram of the neck was perfor med from the aortic arch to the skull base. Images are reviewed in the axial, sagittal, and coronal p lanes. 3-D MIPS images are created and assessed. IV contrast was administered without complication. A ll measurements were calculated based on NASCET criteria. A dose lowering technique was utilized adh ering to the principles of ALARA. CT DOSE: 1135.32 mGy.cm FINDINGS: Thoracic aorta: Visualized portions of the thoracic aorta are normal in caliber. The aortic arch demo nstrates standard 3-vessel anatomy. Right carotid arterial system: The right common carotid artery is widely patent, as are the right int ernal and external carotid arteries. Calcified plaque is seen in the carotid bulb. Left carotid arterial system: The left common carotid artery is widely patent, as are the left risk management intern al and external carotid arteries. Calcified plaque is seen in the carotid bulb. Vertebral arteries: Widely patent bilaterally and codominant. Subclavian arteries: Widely patent bilaterally. Jugular veins: Patent bilaterally. Brain parenchyma: The visualized brain parenchyma the skull base is within normal limits. Lung apices: Partially visualized upper lobe lung parenchyma appears clear. Soft tissues: The visualized pharyngeal soft tissues are normal in appearance noting angiographic pha se technique. The oropharyngeal airway appears widely patent. The salivary and thyroid glands are nor mal in appearance. No cervical lymphadenopathy is seen. Skeletal structures: The skeletal structures are osteopenic. The visualized calvarium at the skull ba se appears intact. The imaged cervical spine is maintained noting multilevel spondylosis. Sinuses and mastoids: The visualized paranasal sinuses are clear. There are small mastoid effusions. IMPRESSION: Unremarkable CT angiogram of the neck. ACT 112: Negative or not required by law. Electronically signed by: Washington Beltran M.D. 11/29/2023 10:09 AM
[2023-11-29 10:20] LABS: Basophils # (auto) 0.03 K/uL (0.00-0.20); Basophils % (auto) 0.4 %; Eosinophils # (auto) 0.02 K/uL (0.00-0.50); Eosinophils % (auto) 0.2 %; Hematocrit (blood only) 32.3 % (37.0-47.0); Hemoglobin 10.6 g/dl (12.0-16.0); Immature Granulocytes # (auto) 0.02 K/uL (0.01-0.20); Immature Granulocytes % (auto) 0.2 %; Lymphocytes # (auto) 0.74 K/uL (1.20-3.40); Lymphocytes % (auto) 8.7 %; Mean Corpuscular Hemoglobin 29.9 pg (25.0-34.0); Mean Corpuscular Hgb Conc 32.8 g/dL (32.0-36.0); Mean Platelet Volume 9.1 fL (9.4-12.4); Monocytes # (auto) 0.35 K/uL (0.11-0.59); Monocytes % (auto) 4.1 %; Neutrophils # (auto) 7.37 K/uL (1.40-6.50); Neutrophils % (auto) 86.4 %; Platelet Count 209 K/uL (130-400); RDW Coefficient of Variation 12.3 % (11.5-14.5); RDW Standard Deviation 40.9 fL (36.4-46.3); Red Blood Count 3.55 M/uL (4.20-5.40); White Blood Count 8.53 K/ul (4.8-10.8)
--- NOTE | 2023-11-29 10:22 | CT Scan Report ---
CT angio head w con CLINICAL HISTORY: 83 years-old Female with neuro deficit, acute stroke suspected. Acute stroke lik e symptoms COMPARISON STUDY: Head CT same day and also 04/28/2023 TECHNIQUE: Following the IV administration of 112 cc of Optiray, CT angiogram of the brain was perfor med from the skull base to the vertex. Images are reviewed in the axial, sagittal, and coronal planes . 3-D MIPS images are created and assessed. IV contrast was administered without complication. All me asurements were obtained according to NASCET criteria. A dose lowering technique was utilized adherin g to the principles of ALARA. FINDINGS: CT ANGIOGRAM OF THE BRAIN: There is prominent atherosclerotic plaque involving the cavernous, clinoid and supraclinoid segments of the internal carotid arteries without high-grade stenosis. The bilateral anterior and middle cereb ral arteries are also patent. The vertebrobasilar system and posterior cerebral arteries are widely p atent. There is no aneurysm, high-grade stenosis, or proximal branch occlusion identified. Dural sinu ses appear patent. IMPRESSION: Unremarkable CTA of the head. ACT 112: Negative or not required by law. The above report was generated using voice recognition software. It may contain grammatical, syntax o r spelling errors. Electronically signed by: Benigno Chau M.D. 11/29/2023 10:21 AM
[2023-11-29 10:31] LABS: INR 1.1 (0.9-1.1); Partial Thromboplastin Time 26 Seconds (21-31); Prothrombin Time 11.9 Seconds (9.0-12.0)
--- NOTE | 2023-11-29 10:32 | XRay Report ---
SINGLE VIEW CHEST CLINICAL HISTORY: Neurological deficit. Stroke like symptoms. FINDINGS: An AP, portable, upright chest radiograph is compared to study dated 04/28/2023. The heart i s mildly enlarged. The pulmonary vasculature is noncongested. Chronic interstitial thickening similar to previous. Scarring/atelectasis is noted at the lung bases. The lungs and pleural spaces are other polanco clear. No pneumothorax is seen. The skeletal structures are osteopenic. The bony thorax is gross ly intact. Degenerative change is noted in the spine. IMPRESSION: No acute cardiopulmonary abnormality. ACT 112: Negative or not required by law. Electronically signed by: Washington Beltran M.D. 11/29/2023 10:30 AM
[2023-11-29 10:42] LABS: Albumin Globulin Ratio 1.1 (0.9-2); Albumin Level 3.1 gm/dl (3.4-5.0); BUN Creatinine Ratio 16.3 (10-20); Bilirubin,Total 0.5 mg/dl (0.2-1.0); Calcium 8.7 mg/dl (8.6-10.3); Est GFR (African American) 73.4 ml/min; Est GFR (Non-African American) 63.4 ml/min; Globulin 2.9 gm/dl (2.5-4.0); Magnesium 1.5 mg/dl (1.7-2.4); Potassium 3.4 mmol/L (3.5-5.1)
[2023-11-29 10:48] LABS: Troponin I High Sensitivity 12.2 pg/ml (0-14)
[2023-11-29] MEDS: SODIUM CHLORIDE 0.9% 1,000 ML IV SCH ×2 (11:52→12:50)
[2023-11-29 12:12] LABS: Appearance Urine Clear (Clear); Bacteria Urine Automated 4+ (None Seen); Bilirubin Urine Negative (Negative); Blood Urine Negative (Negative); Color Urine Yellow; Epithelial Cell Urine Auto 0-2 /hpf (0-2); Glucose Urine UA Negative (Negative); Ketones Urine 1+ (Negative); Leukocyte Esterase Urine Trace (Negative); Nitrite Urine Positive (Negative); Protein Urine Negative (Negative); RBC Urine Automated 0-2 /hpf (0-2); Specific Gravity Urine > 1.045 (1.000-1.030); Urobilinogen Urine Negative (Negative); WBC Urine Automated 21-50 /hpf (0-5)
[2023-11-29 12:46] LABS: Influenza A virus by PCR Negative (Neg); Influenza B virus by PCR Negative (Neg); RSV by PCR Negative (Neg); SARS CoV2 RNA(COVID-19) Ceph NEGATIVE (Negative)
[2023-11-29] MEDS: SODIUM CHLORIDE 0.9% 500 ML IV ONE (12:48)
--- NOTE | 2023-11-29 13:00 | History & Physical Report ---
Date of Service November 29, 2023 Assessment & Plan (1) Dementia: (2) Complicated UTI (urinary tract infection): Plan Pt is an 83yoF with PMHx significant for dementia, Hypertension, hypothyroidism, hyperlipidemia, glaucoma presenting from her [facility] with concern for [facility]. Reportedly patient had left-sided facial droop a few days ago. Today patient was pale so EMS was alerted. Patient was worked up as a stroke alert in the emergency room. Strokelike symptoms Head CT, head and neck CTA unremarkable Brain MRI pending Echo with bubble study pending PT OT, speech eval Continue home aspirin Neurology consult, appreciate recs Complicated UTI UA suggestive of infection urine culture pending Received a dose of Rocephin in the emergency room Continue with IV Rocephin Follow cultures and adjust antibiotics as needed Continue other home meds as ordered Diet: Heart healthy DVT prophylaxis: Heparin subcu Dispo: Admit to [facility] with telemetry History of Present Illness Chief Complaint: stroke-like symptoms Primary Care Provider: Rose Egan DO Pt is an 83yoF with PMHx significant for dementia, Hypertension, hypothyroidism, hyperlipidemia, glaucoma presenting from her [facility] with concern for stroke. History obtained from patient's daughter and at bedside. Daughter states that they got a call from her brother saying that the fpc was concerned that she was pale and needed to be evaluated in the emergency room. They noted that last week she had possible questionable left-sided facial droop that has since resolved. States they were concerned about a stroke. They note a history of dementia and also states that patient tends to have abnormal symptoms like those reported when she has a urinary tract infection. Patient is alert and oriented x 1 in the room, very pleasant. States she is cold requiring 3 blankets however she denies any fevers, chills or night sweats. Denies any dysuria. Patient was a stroke alert on arrival. Workup in the emergency room thus far has been negative for suspected stroke. However it was noted that patient had a urinary tract infection. She received 1 dose of Rocephin in the emergency room. Allergies Allergy/AdvReac Type Severity Reaction Status Date / Time naproxen Allergy Mild ITCH Verified 11/29/23 14:37 PAIN MEDICATION Allergy Intermediate Hallucinati Uncoded 11/29/23 14:37 ng Home Medications Medication Instructions Recorded Confirmed Type latanoprost 0.005 % eye drops 1 drp OPB QPM 10/01/21 11/29/23 History amlodipine 5 mg tablet (Norvasc) 5 mg PO QAM #30 tabs 05/04/23 11/29/23 Rx aspirin 81 mg tablet,delayed 81 mg PO QAM #30 tabs 05/04/23 11/29/23 Rx release calcium carbonate (Calcium 600) 600 mg PO QAM #30 tabs 05/04/23 11/29/23 Rx chlorthalidone 25 mg tablet 25 mg PO QAM #30 tabs 05/04/23 11/29/23 Rx cholecalciferol (vitamin D3) 25 25 mcg PO BID #30 caps 05/04/23 11/29/23 Rx mcg (1,000 unit) capsule (Vitamin D3) donepezil 10 mg tablet (Aricept) 10 mg PO QDB #30 tabs 05/04/23 11/29/23 Rx escitalopram oxalate 20 mg tablet 20 mg PO QAM #30 tabs 05/04/23 11/29/23 Rx glucosamine sulfate 1,000 mg 1,000 mg PO QAM #30 caps 05/04/23 11/29/23 Rx capsule levothyroxine 75 mcg tablet 75 mcg PO DAILYBB #30 tabs 05/04/23 11/29/23 Rx lisinopril 40 mg tablet 40 mg PO QAM #30 tabs 05/04/23 11/29/23 Rx omega-3 fatty acids-fish oil 684 1 cap PO QAM #30 caps 05/04/23 11/29/23 Rx mg-1,200 mg capsule,delayed release pravastatin 40 mg tablet 40 mg PO DAILY #30 tabs 05/04/23 11/29/23 Rx vitamin E 670 mg (1,000 unit) 670 mg PO BID #60 caps 05/04/23 11/29/23 Rx capsule acetaminophen 500 mg capsule 1,000 mg PO Q6 PRN Pain 11/29/23 11/29/23 History lorazepam 0.5 mg tablet 0.25 mg PO BID 11/29/23 11/29/23 History lorazepam 0.5 mg tablet 0.5 mg PO PM 11/29/23 11/29/23 History potassium chloride 20 mEq 20 meq PO BID 11/29/23 11/29/23 History tablet,extended release quetiapine 25 mg tablet 25 mg PO BID 11/29/23 11/29/23 History Past Med/Surg History Problem List Complicated UTI (urinary tract infection) Aggressive behavior (Acute) Dementia (Acute) Hypertension (Acute) Agitation (Acute) Asymptomatic hypertensive urgency H/O bilateral hip replacements Lumbar spondylosis Laceration of index finger of left hand without complication (Acute) Hypertension (Chronic) Visit for suture removal (Acute) 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 Jagjit Rodriguez History of anesthesia reaction CONFUSED/TRYING TO WALK OUT History of carpal tunnel release RT/LEFT History of total hip arthroplasty RT Fusion of spine LUMBAR History of colonoscopy History of tooth extraction History of tonsillectomy History of cataract surgery RT/LEFT Family History Mother Family history of diabetes mellitus Father Family history of diabetes mellitus Denies family history of Ovarian cancer Breast cancer Colorectal cancer Social History Smoking Status: Unknown if ever smoked Second Hand Exposure: Yes; Do You Dip or Chew Tobacco: No; Hx Alcohol Use: No Hx Substance Use: No Preferred Language: Turkish Communication Ability: Effective Unarmed Security Officer Required: No Beliefs That Will Affect Care: None marital status: Current Living Situation: Spouse Current Living Situation Comment: daughter checks on them daily Feels Safe at Home: Yes Gender Identity: Female Assistive Devices: None Review of Systems Review of Systems: All systems reviewed & are unremarkable except as noted in HPI & below Physical Exam Physical Exam: General: Alert, orientedx1. resting comfortably in bed Skin: No noted rashes or bruises Psych: Appropriate mood and affect Neuro: oriented x1 HEENT: NC/AT, pt fixes gaze straight ahead Chest: Nontender to palpation. CV: RRR Resp: Breath sounds clear bilaterally, no increased effort of breathing. Abdomen: Soft, nontender Extremities: No edema in lower extremities bilaterally. Results & Data Results & Data Vital Signs (Past 12 Hours) Vital Signs Temp Pulse Pulse Resp BP BP Pulse Ox 11/29/23 12:25 52 L 18 169/68 H 96 11/29/23 10:48 64 16 11/29/23 10:39 64 15 11/29/23 10:32 151/58 H 11/29/23 10:14 64 11/29/23 10:10 66 147/72 H 11/29/23 09:40 11/29/23 09:40 36.7 C 87 14 119/70 96 O2 Del Method 11/29/23 12:25 Room Air 11/29/23 10:48 Room Air 11/29/23 10:39 Room Air 11/29/23 10:32 11/29/23 10:14 11/29/23 10:10 Room Air 11/29/23 09:40 Room Air 11/29/23 09:40 Room Air Diagnostic Findings Chest X-Ray 11/29/23 00:00 SINGLE VIEW CHEST CLINICAL HISTORY: Neurological deficit. Stroke like symptoms. FINDINGS: An AP, portable, upright chest radiograph is compared to study dated 04/28/2023. The heart is mildly enlarged. The pulmonary vasculature is noncongested. Chronic interstitial thickening similar to previous. Scarring/atelectasis is noted at the lung bases. The lungs and pleural spaces are otherwise clear. No pneumothorax is seen. The skeletal structures are osteopenic. The bony thorax is grossly intact. Degenerative change is noted in the spine. IMPRESSION: No acute cardiopulmonary abnormality. ACT 112: Negative or not required by law. Electronically signed by: Washington Beltran M.D. 11/29/2023 10:[address] 11/29/23 09:46 CT SCAN OF THE BRAIN WITHOUT IV CONTRAST CLINICAL HISTORY: Neurological deficit. Stroke like symptoms. COMPARISON STUDY: CT of the brain dated 04/28/2023. TECHNIQUE: Unenhanced axial CT scan of the brain is performed from the vertex to the skull base. A dose lowering technique was utilized adhering to the principles of ALARA. FINDINGS: Brain parenchyma: There is age-related involutional change noting advanced confluent subcortical and periventricular microangiopathic disease. There is no hemorrhage, mass effect, or evidence of acute territorial ischemia by CT criteria. Murphy-white matter differentiation is preserved. No extra-axial fluid collection is seen. Ventricles, sulci, cisterns: Prominent secondary to involutional change. Intracranial vasculature: There is atherosclerotic calcification of the cavernous carotid and vertebral artery. Calvarium: Unremarkable. Sinuses and mastoids: The visualized paranasal sinuses are clear. There are trace mastoid effusions. Orbits: The bony orbits are grossly intact. There are bilateral ocular lens implants. IMPRESSION: There is no hemorrhage, mass effect, or evidence of acute territorial ischemia by CT criteria. ACT 112: Negative or not required by law. Electronically signed by: Washington Beltran M.D. 11/29/2023 10:06 AM Head CTA 11/29/23 09:46 CT angio head w con CLINICAL HISTORY: 83 years-old Female with neuro deficit, acute stroke suspected. Acute stroke like symptoms COMPARISON STUDY: Head CT same day and also 04/28/2023 TECHNIQUE: Following the IV administration of 112 cc of Optiray, CT angiogram of the brain was performed from the skull base to the vertex. Images are reviewed in the axial, sagittal, and coronal planes. 3-D MIPS images are created and assessed. IV contrast was administered without complication. All measurements were obtained according to NASCET criteria. A dose lowering technique was utilized adhering to the principles of ALARA. FINDINGS: CT ANGIOGRAM OF THE BRAIN: There is prominent atherosclerotic plaque involving the cavernous, clinoid and supraclinoid segments of the internal carotid arteries without high-grade stenosis. The bilateral anterior and middle cerebral arteries are also patent. The vertebrobasilar system and posterior cerebral arteries are widely patent. There is no aneurysm, high-grade stenosis, or proximal branch occlusion identified. Dural sinuses appear patent. IMPRESSION: Unremarkable CTA of the head. ACT 112: Negative or not required by law. The above report was generated using voice recognition software. It may contain grammatical, syntax or spelling errors. Electronically signed by: Benigno Chau M.D. 11/29/2023 10:21 AM Neck CTA 11/29/23 09:46 CT ANGIOGRAM OF THE NECK CLINICAL HISTORY: Neurological deficit. Stroke like symptoms. COMPARISON STUDY: No priors. TECHNIQUE: Following the IV administration of 112 of Optiray 320, CT angiogram of the neck was performed from the aortic arch to the skull base. Images are reviewed in the axial, sagittal, and coronal planes. 3-D MIPS images are created and assessed. IV contrast was administered without complication. All measurements were calculated based on NASCET criteria. A dose lowering technique was utilized adhering to the principles of ALARA. CT DOSE: 1135.32 mGy.cm FINDINGS: Thoracic aorta: Visualized portions of the thoracic aorta are normal in caliber. The aortic arch demonstrates standard 3-vessel anatomy. Right carotid arterial system: The right common carotid artery is widely patent, as are the right internal and external carotid arteries. Calcified plaque is seen in the carotid bulb. Left carotid arterial system: The left common carotid artery is widely patent, as are the left internal and external carotid arteries. Calcified plaque is seen in the carotid bulb. Vertebral arteries: Widely patent bilaterally and codominant. Subclavian arteries: Widely patent bilaterally. Jugular veins: Patent bilaterally. Brain parenchyma: The visualized brain parenchyma the skull base is within normal limits. Lung apices: Partially visualized upper lobe lung parenchyma appears clear. Soft tissues: The visualized pharyngeal soft tissues are normal in appearance noting angiographic phase technique. The oropharyngeal airway appears widely patent. The salivary and thyroid glands are normal in appearance. No cervical lymphadenopathy is seen. Skeletal structures: The skeletal structures are osteopenic. The visualized calvarium at the skull base appears intact. The imaged cervical spine is main tained noting multilevel spondylosis. Sinuses and mastoids: The visualized paranasal sinuses are clear. There are small mastoid effusions. IMPRESSION: Unremarkable CT angiogram of the neck. ACT 112: Negative or not required by law. Electronically signed by: Washington Beltran M.D. 11/29/2023 10:09 AM
[2023-11-29] MEDS: cefTRIAXone SODIUM 2,000 MG/50 ML BAG IV STA (13:19)
--- NOTE | 2023-11-29 17:39 | Emergency Department Note ---
Impression & Plan AMS (altered mental status), Acute UTI (urinary tract infection) ED Provider Note NAME: DARRELL SANTACRUZ AGE: 83 SEX: Female INFORMANT: EMS, nursing facility, and [facility] ED PROVIDER(S): Román Delgado MD CHIEF COMPLAINT: Stroke alert PLAN: Disposition: Admitted Outpatient prescription management: none Referral: None MEDICAL DECISION MAKING: Patient presented as a stroke alert. On further history she had a syncopal episode coupled with some garbled speech and was hypotensive. Upon arrival to the ED the patient had an NIH stroke scale of 0. Historically seems most consistent with a metabolic etiology as opposed to acute CVA. Patient was stool evaluated from the CVA standpoint and her neuroimaging was negative. I did discuss the patient's presentation with Yazmin telestroke, Dr. Summers. In light of the patient's symptoms and negative NIH she was in agreement that this seems most consistent with metabolic etiology as well and recommended that type of workup. Patient's urinalysis was very concerning for infection. Chemistry is unremarkable. Patient was given IV Rocephin. Patient was given saline hydration. Aggressive saline hydration was not performed due to the patient's hypertension and resolution of symptoms. She had no further episodes of hypotension in the emergency department. Consultation was made with the [facility] Hospitalist service. Patient was evaluated in the ER and admitted for further management. Care/management discussed with: shelter case manager Level of care consideration(s): After review of the information above and other included data, I feel the patient requires escalation of care to admission Triage Nursing notes: reviewed and agree them. Vital Signs: reviewed and remarkable for hypertension Additional History obtained from: Family. Family is stating patient is currently at baseline. Chronic Medical/Social Conditions affecting care: Dementia Prior/ Outside/ External records reviewed: none Differential Diagnosis: CVA, TIA, Infection, dehydration, metabolic abnormality, hypo/hyperglycemia, electrolyte disturbance, anemia, hypoxia, cardiac sources, intracerebral event, toxicologic, neurologic, as well as other pathologies. Diagnostics, independently interpreted by me: ECG: Twelve-lead ECG was sinus rhythm with supraventricular contractions at 64 bpm. Prolonged QT. Poor R progression. Cardiac Monitoring: Cardiac monitoring ordered by me: The patient was placed on continuous cardiac monitoring and observed. It revealed a sinus bradycardia with premature contractions a 60 bpm. Medical decision rules: none Imaging studies: Head CT: A noncontrast CT scan of the head was performed and was negative for tumor, fracture, intracranial hemorrhage, or other acute pathology. Chest x-ray. Findings: A chest x-ray was performed and revealed no pneumothorax, effusion, infiltrate, pulmonary edema, free air under the diaphragm, or wide mediastinum. Impression: No acute disease. I refer you to the EMR for further details. HPI: 83 year old Female arrives for evaluation of strokelike symptoms. Patient was reported being ambulated back to her room and was getting weak. She was lowered into chair and had a brief syncopal episode. Blood pressure was checked at her residence and she was hypotensive at 83/40. EMS was summoned. Patient seem to be having some left-sided weakness. Upon arrival to the ED the patient had confusion. She was oriented to person only. Patient does have a history of dementia. Family did present and notes that patient is acting normally and at her baseline. Patient denies any injury from the episode. She denies any headache, chest pain, belly pain, back pain, or extremity pain. PAST MEDICAL HISTORY: See Below, dementia PAST SURGICAL HISTORY: See Below, SOCIAL HISTORY: See Below, HOME MEDICATIONS: See Below ALLERGIES: See Below VITALS: See Below PHYSICAL EXAMINATION: GENERAL: Awake, alert, well-appearing, in no distress HENT: Normocephalic, atraumatic. Oropharynx unremarkable. EYES: Normal conjunctiva. Sclera non-icteric. PERRLA. EOMI. NECK: Inspection normal. Non-tender. Supple. No nuchal rigidity. FROM. No masses. RESPIRATORY: Clear to auscultation. No wheezes. No rales. Normal respiratory effort. CARDIAC: Normal rate. Normal rhythm. No murmurs. No rubs. Extremities warm and well perfused. Pulses equal. No JVD. GI: Soft, non-distended. No tenderness to palpation. No rebound or guarding. No masses. RECTAL: Deferred. MUSCULOSKELETAL: Atraumatic. Chest examination reveals no tenderness. The back is symmetrical on inspection without obvious abnormality. There is no CVA tenderness to palpation. No joint edema. LOWER EXTREMITIES: Calves are equal size bilaterally and non-tender. No edema. No discoloration. NEURO: Demented sensorium. No sensory or motor deficits noted. No drift. Cranial nerves II through XII intact. SKIN: No rash or jaundice noted. 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 Jagjit Rodriguez History of anesthesia reaction CONFUSED/TRYING TO WALK OUT History of carpal tunnel release RT/LEFT History of total hip arthroplasty RT Fusion of spine LUMBAR History of colonoscopy History of tooth extraction History of tonsillectomy History of cataract surgery RT/LEFT Family History Mother Family history of diabetes mellitus Father Family history of diabetes mellitus Denies family history of Ovarian cancer Breast cancer Colorectal cancer Social History Smoking Status: Unknown if ever smoked Second Hand Exposure: Yes; Do You Dip or Chew Tobacco: No; Hx Alcohol Use: No Hx Substance Use: No Preferred Language: Finnish Communication Ability: Effective Elementary Educator Required: No Beliefs That Will Affect Care: None marital status: Current Living Situation: Spouse Current Living Situation Comment: daughter checks on them daily Feels Safe at Home: Yes Gender Identity: Female Assistive Devices: None Allergies Allergies Allergy/AdvReac Type Severity Reaction Status Date / Time naproxen Allergy Mild ITCH Verified 11/29/23 14:37 PAIN MEDICATION Allergy Intermediate Hallucinati Uncoded 11/29/23 14:37 ng Home Meds Home Medications Medication Instructions Recorded Confirmed latanoprost 0.005 % eye drops 1 drp OPB QPM 10/01/21 11/29/23 acetaminophen 500 mg capsule 1,000 mg PO Q6 PRN Pain 11/29/23 11/29/23 lorazepam 0.5 mg tablet 0.25 mg PO BID 11/29/23 11/29/23 lorazepam 0.5 mg tablet 0.5 mg PO PM 11/29/23 11/29/23 potassium chloride 20 mEq 20 meq PO BID 11/29/23 11/29/23 tablet,extended release quetiapine 25 mg tablet 25 mg PO BID 11/29/23 11/29/23 Previous Rx's Medication Instructions Recorded amlodipine 5 mg tablet (Norvasc) 5 mg PO QAM #30 tabs 05/04/23 aspirin 81 mg tablet,delayed 81 mg PO QAM #30 tabs 05/04/23 release calcium carbonate (Calcium 600) 600 mg PO QAM #30 tabs 05/04/23 chlorthalidone 25 mg tablet 25 mg PO QAM #30 tabs 05/04/23 cholecalciferol (vitamin D3) 25 25 mcg PO BID #30 caps 05/04/23 mcg (1,000 unit) capsule (Vitamin D3) donepezil 10 mg tablet (Aricept) 10 mg PO QDB #30 tabs 05/04/23 escitalopram oxalate 20 mg tablet 20 mg PO QAM #30 tabs 05/04/23 glucosamine sulfate 1,000 mg 1,000 mg PO QAM #30 caps 05/04/23 capsule levothyroxine 75 mcg tablet 75 mcg PO DAILYBB #30 tabs 05/04/23 lisinopril 40 mg tablet 40 mg PO QAM #30 tabs 05/04/23 omega-3 fatty acids-fish oil 684 1 cap PO QAM #30 caps 05/04/23 mg-1,200 mg capsule,delayed release pravastatin 40 mg tablet 40 mg PO DAILY #30 tabs 05/04/23 vitamin E 670 mg (1,000 unit) 670 mg PO BID #60 caps 05/04/23 capsule Results & Data (ED) Vital Signs Vital Signs - 24 hr 11/29/23 09:40 11/29/23 09:40 11/29/23 10:10 Temperature 36.7 C Temperature Source Oral Pulse Rate 87 66 Pulse Rate [Apical] Pulse Rate from SpO2 Sensor Pulse Rhythm [Apical] Pulse Strength [Apical] Respiratory Rate 14 Respiratory Effort / Characteristics Respiratory Depth Blood Pressure 119/70 147/72 H Blood Pressure [Left Arm] Blood Pressure Mean 86 97 Blood Pressure Mean [Left Arm] Blood Pressure Position [Left Arm] Pulse Oximetry 96 Oxygen Delivery Method Room Air Room Air Room Air Sepsis New/Unexplained Change in Mental Status Yes Sepsis Action Taken by Nursing No Action Required 11/29/23 10:14 11/29/23 10:32 11/29/23 10:39 Temperature Temperature Source Pulse Rate 64 64 Pulse Rate [Apical] Pulse Rate from SpO2 Sensor Pulse Rhythm [Apical] Pulse Strength [Apical] Respiratory Rate 15 Respiratory Effort / Characteristics Respiratory Depth Blood Pressure 151/58 H Blood Pressure [Left Arm] Blood Pressure Mean 99 Blood Pressure Mean [Left Arm] Blood Pressure Position [Left Arm] Pulse Oximetry Oxygen Delivery Method Room Air Sepsis New/Unexplained Change in Mental Status Sepsis Action Taken by Nursing 11/29/23 10:48 11/29/23 10:57 11/29/23 11:00 Temperature Temperature Source Pulse Rate 64 62 59 L Pulse Rate [Apical] Pulse Rate from SpO2 Sensor Pulse Rhythm [Apical] Pulse Strength [Apical] Respiratory Rate 16 19 Respiratory Effort / Characteristics Respiratory Depth Blood Pressure 156/82 H Blood Pressure [Left Arm] Blood Pressure Mean 103 Blood Pressure Mean [Left Arm] Blood Pressure Position [Left Arm] Pulse Oximetry Oxygen Delivery Method Room Air Sepsis New/Unexplained Change in Mental Status Sepsis Action Taken by Nursing 11/29/23 11:15 11/29/23 11:27 11/29/23 11:54 Temperature Temperature Source Pulse Rate 62 58 L 60 Pulse Rate [Apical] Pulse Rate from SpO2 Sensor 60 Pulse Rhythm [Apical] Pulse Strength [Apical] Respiratory Rate 16 17 11 L Respiratory Effort / Characteristics Respiratory Depth Blood Pressure 139/63 Blood Pressure [Left Arm] Blood Pressure Mean 88 Blood Pressure Mean [Left Arm] Blood Pressure Position [Left Arm] Pulse Oximetry 97 Oxygen Delivery Method Sepsis New/Unexplained Change in Mental Status Sepsis Action Taken by Nursing 11/29/23 12:00 11/29/23 12:25 11/29/23 12:32 Temperature Temperature Source Pulse Rate 52 L Pulse Rate [Apical] 52 L Pulse Rate from SpO2 Sensor Pulse Rhythm [Apical] Pulse Strength [Apical] Respiratory Rate 18 Respiratory Effort / Characteristics Non-Labored Spontaneous Respiratory Depth Normal Blood Pressure 169/68 H 160/76 H Blood Pressure [Left Arm] 169/68 H Blood Pressure Mean 86 132 Blood Pressure Mean [Left Arm] 101 Blood Pressure Position [Left Arm] Semi-fowlers Pulse Oximetry 96 Oxygen Delivery Method Room Air Sepsis New/Unexplained Change in Mental Status Sepsis Action Taken by Nursing 11/29/23 12:36 11/29/23 12:48 11/29/23 13:00 Temperature Temperature Source Pulse Rate 61 61 Pulse Rate [Apical] Pulse Rate from SpO2 Sensor 61 Pulse Rhythm [Apical] Pulse Strength [Apical] Respiratory Rate 15 13 Respiratory Effort / Characteristics Respiratory Depth Blood Pressure 181/85 H Blood Pressure [Left Arm] Blood Pressure Mean 141 Blood Pressure Mean [Left Arm] Blood Pressure Position [Left Arm] Pulse Oximetry 97 Oxygen Delivery Method Sepsis New/Unexplained Change in Mental Status Sepsis Action Taken by Nursing 11/29/23 13:00 11/29/23 13:18 11/29/23 13:30 Temperature Temperature Source Pulse Rate 68 73 Pulse Rate [Apical] Pulse Rate from SpO2 Sensor Pulse Rhythm [Apical] Pulse Strength [Apical] Respiratory Rate 14 12 Respiratory Effort / Characteristics Respiratory Depth Blood Pressure 182/82 H Blood Pressure [Left Arm] Blood Pressure Mean 118 Blood Pressure Mean [Left Arm] Blood Pressure Position [Left Arm] Pulse Oximetry Oxygen Delivery Method Sepsis New/Unexplained Change in Mental Status Sepsis Action Taken by Nursing 11/29/23 13:30 11/29/23 14:13 11/29/23 14:43 Temperature Temperature Source Pulse Rate 61 Pulse Rate [Apical] 57 L Pulse Rate from SpO2 Sensor Pulse Rhythm [Apical] Regular Pulse Strength [Apical] Normal Respiratory Rate 17 Respiratory Effort / Characteristics Non-Labored Spontaneous Respiratory Depth Normal Blood Pressure 182/82 H Blood Pressure [Left Arm] 154/79 H Blood Pressure Mean 118 Blood Pressure Mean [Left Arm] 104 Blood Pressure Position [Left Arm] Semi-fowlers Pulse Oximetry 97 Oxygen Delivery Method Room Air Sepsis New/Unexplained Change in Mental Status Sepsis Action Taken by Nursing Laboratory Data 11/29/23 10:01 11/29/23 10:01 Lab Results 11/29/23 11/29/23 11/29/23 Range/Units 09:47 10:01 10:02 WBC 8.53 (4.8-10.8) K/ul RBC 3.55 L (4.20-5.40) M/uL Hgb 10.6 L (12.0-16.0) g/dl POC Hgb 11.6 L (12.0-16.0) g/dl Hct 32.3 L (37.0-47.0) % POC Hct 34 L (37-47) % MCV 91.0 (80.0-100.0) fL MCH 29.9 (25.0-34.0) pg MCHC 32.8 (32.0-36.0) g/dL RDW Std Deviation 40.9 (36.4-46.3) fL RDW Coeff of Elan 12.3 (11.5-14.5) % Plt Count 209 (130-400) K/uL MPV 9.1 L (9.4-12.4) fL Immature Gran % (Auto) 0.2 % Neut % (Auto) 86.4 % Lymph % (Auto) 8.7 % [place] % (Auto) 4.1 % Eos % (Auto) 0.2 % Baso % (Auto) 0.4 % Neut # (Auto) 7.37 H (1.40-6.50) K/uL Lymph # (Auto) 0.74 L (1.20-3.40) K/uL [place] # (Auto) 0.35 (0.11-0.59) K/uL Eos # (Auto) 0.02 (0.00-0.50) K/uL Baso # (Auto) 0.03 (0.00-0.20) K/uL Immature Gran # (Auto) 0.02 (0.01-0.20) K/uL PT 11.9 (9.0-12.0) Seconds INR 1.1 (0.9-1.1) APTT 26 (21-31) Seconds PTT Ratio 1.0 POC Sodium 136 (135-144) mmol/L Sodium 136 (136-145) mmol/L POC Potassium 7.0 H* (3.3-5.0) mmol/L Potassium 3.4 L (3.5-5.1) mmol/L POC Chloride 104 (101-112) mmol/L Chloride 102 (98-107) mmol/L Carbon Dioxide 26 (21-32) mmol/L POC Total CO2 24 (24-31) mmol/L Anion Gap 8 (3-11) POC Anion Gap 16.0 (16-25) mmol/L POC BUN 19 H (7-18) mg/dl BUN 14 (6-23) mg/dl Creatinine 0.86 (0.6-1.2) mg/dl POC Creatinine 0.9 (0.6-1.3) mg/dl Est Cr Clr Drug Dosing 48.0 ml/min Est GFR ( Amer) 73.4 ml/min Est GFR (Non-Af Amer) 63.4 ml/min BUN/Creatinine Ratio 16.3 (10-20) Glucose 147 H (70-99(Fasting)) mg/dl POC Glucose 150 H (70-99) mg/dl POC Glucose (other) 163 H (70-99) mg/dl Lactate (0.4-2.0) mmol/L Calcium 8.7 (8.6-10.3) mg/dl POC Ioniz Calcium Monisha 1.04 L (1.12-1.32) mmol/l Magnesium 1.5 L (1.7-2.4) mg/dl Total Bilirubin 0.5 (0.2-1.0) mg/dl AST 14 (13-39) U/L ALT 4 L (7-52) U/L Alkaline Phosphatase 48 (34-104) U/L Troponin I High Sens 12.2 (0-14) pg/ml Total Protein 6.0 (6.0-8.3) gm/dl Albumin 3.1 L (3.4-5.0) gm/dl Globulin 2.9 (2.5-4.0) gm/dl Albumin/Globulin Ratio 1.1 (0.9-2) Urine Color Urine Appearance (Clear) Urine pH (4.5-7.5) Ur Specific Wayan (1.000-1.030) Urine Protein (Negative) Urine Glucose (UA) (Negative) Urine Ketones (Negative) Urine Blood (Negative) Urine Nitrite (Negative) Urine Bilirubin (Negative) Urine Urobilinogen (Negative) Ur Leukocyte Esterase (Negative) Urine WBC (Auto) (0-5) /hpf Urine RBC (Auto) (0-2) /hpf U Hyaline Cast (Auto) (0-2) /lpf U Epithel Cells (Auto) (0-2) /hpf Urine Bacteria (Auto) (None Seen) SARS-CoV-2 (PCR) (Negative) Influenza Type A (PCR) (Neg) Influenza Type B (PCR) (Neg) RSV (RT-PCR) (Neg) Blood Type O Negative Antibody Screen NEGATIVE 11/29/23 11/29/23 11/29/23 Range/Units 11:45 11:51 12:40 WBC (4.8-10.8) K/ul RBC (4.20-5.40) M/uL Hgb (12.0-16.0) g/dl POC Hgb (12.0-16.0) g/dl Hct (37.0-47.0) % POC Hct (37-47) % MCV (80.0-100.0) fL MCH (25.0-34.0) pg MCHC (32.0-36.0) g/dL RDW Std Deviation (36.4-46.3) fL RDW Coeff of Elan (11.5-14.5) % Plt Count (130-400) K/uL MPV (9.4-12.4) fL Immature Gran % (Auto) % Neut % (Auto) % Lymph % (Auto) % [place] % (Auto) % Eos % (Auto) % Baso % (Auto) % Neut # (Auto) (1.40-6.50) K/uL Lymph # (Auto) (1.20-3.40) K/uL [place] # (Auto) (0.11-0.59) K/uL Eos # (Auto) (0.00-0.50) K/uL Baso # (Auto) (0.00-0.20) K/uL Immature Gran # (Auto) (0.01-0.20) K/uL PT (9.0-12.0) Seconds INR (0.9-1.1) APTT (21-31) Seconds PTT Ratio POC Sodium (135-144) mmol/L Sodium (136-145) mmol/L POC Potassium (3.3-5.0) mmol/L Potassium (3.5-5.1) mmol/L POC Chloride (101-112) mmol/L Chloride (98-107) mmol/L Carbon Dioxide (21-32) mmol/L POC Total CO2 (24-31) mmol/L Anion Gap (3-11) POC Anion Gap (16-25) mmol/L POC BUN (7-18) mg/dl BUN (6-23) mg/dl Creatinine (0.6-1.2) mg/dl POC Creatinine (0.6-1.3) mg/dl Est Cr Clr Drug Dosing ml/min Est GFR ( Amer) ml/min Est GFR (Non-Af Amer) ml/min BUN/Creatinine Ratio (10-20) Glucose (70-99(Fasting)) mg/dl POC Glucose (70-99) mg/dl POC Glucose (other) (70-99) mg/dl Lactate 2.1 H* (0.4-2.0) mmol/L Calcium (8.6-10.3) mg/dl POC Ioniz Calcium Monisha (1.12-1.32) mmol/l Magnesium (1.7-2.4) mg/dl Total Bilirubin (0.2-1.0) mg/dl AST (13-39) U/L ALT (7-52) U/L Alkaline Phosphatase (34-104) U/L Troponin I High Sens (0-14) pg/ml Total Protein (6.0-8.3) gm/dl Albumin (3.4-5.0) gm/dl Globulin (2.5-4.0) gm/dl Albumin/Globulin Ratio (0.9-2) Urine Color Yellow Urine Appearance Clear (Clear) Urine pH 8.0 H (4.5-7.5) Ur Specific Wayan > 1.045 H (1.000-1.030) Urine Protein Negative (Negative) Urine Glucose (UA) Negative (Negative) Urine Ketones 1+ H (Negative) Urine Blood Negative (Negative) Urine Nitrite Positive A (Negative) Urine Bilirubin Negative (Negative) Urine Urobilinogen Negative (Negative) Ur Leukocyte Esterase Trace H (Negative) Urine WBC (Auto) 21-50 H (0-5) /hpf Urine RBC (Auto) 0-2 (0-2) /hpf U Hyaline Cast (Auto) 3-5 H (0-2) /lpf U Epithel Cells (Auto) 0-2 (0-2) /hpf Urine Bacteria (Auto) 4+ H (None Seen) SARS-CoV-2 (PCR) NEGATIVE (Negative) Influenza Type A (PCR) Negative (Neg) Influenza Type B (PCR) Negative (Neg) RSV (RT-PCR) Negative (Neg) Blood Type Antibody Screen 11/29/23 Range/Units 15:02 WBC (4.8-10.8) K/ul RBC (4.20-5.40) M/uL Hgb (12.0-16.0) g/dl POC Hgb (12.0-16.0) g/dl Hct (37.0-47.0) % POC Hct (37-47) % MCV (80.0-100.0) fL MCH (25.0-34.0) pg MCHC (32.0-36.0) g/dL RDW Std Deviation (36.4-46.3) fL RDW Coeff of Elan (11.5-14.5) % Plt Count (130-400) K/uL MPV (9.4-12.4) fL Immature Gran % (Auto) % Neut % (Auto) % Lymph % (Auto) % [place] % (Auto) % Eos % (Auto) % Baso % (Auto) % Neut # (Auto) (1.40-6.50) K/uL Lymph # (Auto) (1.20-3.40) K/uL [place] # (Auto) (0.11-0.59) K/uL Eos # (Auto) (0.00-0.50) K/uL Baso # (Auto) (0.00-0.20) K/uL Immature Gran # (Auto) (0.01-0.20) K/uL PT (9.0-12.0) Seconds INR (0.9-1.1) APTT (21-31) Seconds PTT Ratio POC Sodium (135-144) mmol/L Sodium (136-145) mmol/L POC Potassium (3.3-5.0) mmol/L Potassium (3.5-5.1) mmol/L POC Chloride (101-112) mmol/L Chloride (98-107) mmol/L Carbon Dioxide (21-32) mmol/L POC Total CO2 (24-31) mmol/L Anion Gap (3-11) POC Anion Gap (16-25) mmol/L POC BUN (7-18) mg/dl BUN (6-23) mg/dl Creatinine (0.6-1.2) mg/dl POC Creatinine (0.6-1.3) mg/dl Est Cr Clr Drug Dosing ml/min Est GFR ( Amer) ml/min Est GFR (Non-Af Amer) ml/min BUN/Creatinine Ratio (10-20) Glucose (70-99(Fasting)) mg/dl POC Glucose (70-99) mg/dl POC Glucose (other) (70-99) mg/dl Lactate 1.6 (0.4-2.0) mmol/L Calcium (8.6-10.3) mg/dl POC Ioniz Calcium Monisha (1.12-1.32) mmol/l Magnesium (1.7-2.4) mg/dl Total Bilirubin (0.2-1.0) mg/dl AST (13-39) U/L ALT (7-52) U/L Alkaline Phosphatase (34-104) U/L Troponin I High Sens (0-14) pg/ml Total Protein (6.0-8.3) gm/dl Albumin (3.4-5.0) gm/dl Globulin (2.5-4.0) gm/dl Albumin/Globulin Ratio (0.9-2) Urine Color Urine Appearance (Clear) Urine pH (4.5-7.5) Ur Specific [place] (1.000-1.030) Urine Protein (Negative) Urine Glucose (UA) (Negative) Urine Ketones (Negative) Urine Blood (Negative) Urine Nitrite (Negative) Urine Bilirubin (Negative) Urine Urobilinogen (Negative) Ur Leukocyte Esterase (Negative) Urine WBC (Auto) (0-5) /hpf Urine RBC (Auto) (0-2) /hpf U Hyaline Cast (Auto) (0-2) /lpf U Epithel Cells (Auto) (0-2) /hpf Urine Bacteria (Auto) (None Seen) SARS-CoV-2 (PCR) (Negative) Influenza Type A (PCR) (Neg) Influenza Type B (PCR) (Neg) RSV (RT-PCR) (Neg) Blood Type Antibody Screen Administered Medications Sodium Chloride (Nss) 1,000 mls @ 125 mls/hr IV .Q8H ALEJANDRA Stop: 12/29/23 12:29 Last Admin: 11/29/23 12:50 Dose: 125 mls/hr Documented By: AMS Discontinued Medications Sodium Chloride (Nss) 1,000 mls @ 50 mls/hr IV .Q20H ALEJANDRA Stop: 12/29/23 09:59 Last Infusion: 11/29/23 12:56 Dose: Infused Documented By: Admin: 11/29/23 11:52 Dose: 50 mls/hr Documented By: LORAINE Sodium Chloride (Nss) 500 mls @ 999 mls/hr IV .Q31M ONE Stop: 11/29/23 12:55 Last Infusion: 11/29/23 15:56 Dose: Infused Documented By: Admin: 11/29/23 12:48 Dose: 999 mls/hr Documented By: LORAINE Ceftriaxone Sodium (Rocephin) 2,000 mg in 50 mls @ 100 mls/hr IV NOW STA Stop: 11/29/23 12:55 Last Infusion: 11/29/23 14:00 Dose: Infused Documented By: Admin: 11/29/23 13:19 Dose: 100 mls/hr Documented By: Ioversol (Optiray 320 125ml) 112 ml IV ONCE ONE Stop: 11/29/23 09:52 Last Admin: 11/29/23 09:51 Dose: 112 ml Documented By: YULIA Imaging Data Radiologist's Impression: Chest X-Ray 11/29/23 00:00 SINGLE VIEW CHEST CLINICAL HISTORY: Neurological deficit. Stroke like symptoms. FINDINGS: An AP, portable, upright chest radiograph is compared to study dated 04/28/2023. The heart is mildly enlarged. The pulmonary vasculature is noncongested. Chronic interstitial thickening similar to previous. Scarring/atelectasis is noted at the lung bases. The lungs and pleural spaces are otherwise clear. No pneumothorax is seen. The skeletal structures are osteopenic. The bony thorax is grossly intact. Degenerative change is noted in the spine. IMPRESSION: No acute cardiopulmonary abnormality. ACT 112: Negative or not required by law. Electronically signed by: Washington Beltran M.D. 11/29/2023 10:[address] 11/29/23 09:46 CT SCAN OF THE BRAIN WITHOUT IV CONTRAST CLINICAL HISTORY: Neurological deficit. Stroke like symptoms. COMPARISON STUDY: CT of the brain dated 04/28/2023. TECHNIQUE: Unenhanced axial CT scan of the brain is performed from the vertex to the skull base. A dose lowering technique was utilized adhering to the principles of ALARA. FINDINGS: Brain parenchyma: There is age-related involutional change noting advanced confluent subcortical and periventricular microangiopathic disease. There is no hemorrhage, mass effect, or evidence of acute territorial ischemia by CT criteria. Murphy-white matter differentiation is preserved. No extra-axial fluid collection is seen. Ventricles, sulci, cisterns: Prominent secondary to involutional change. Intracranial vasculature: There is atherosclerotic calcification of the cavernous carotid and vertebral artery. Calvarium: Unremarkable. Sinuses and mastoids: The visualized paranasal sinuses are clear. There are trace mastoid effusions. Orbits: The bony orbits are grossly intact. There are bilateral ocular lens implants. IMPRESSION: There is no hemorrhage, mass effect, or evidence of acute territorial ischemia by CT criteria. ACT 112: Negative or not required by law. Electronically signed by: Washington Beltran M.D. 11/29/2023 10:06 AM Head CTA 11/29/23 09:46 CT angio head w con CLINICAL HISTORY: 83 years-old Female with neuro deficit, acute stroke suspected. Acute stroke like symptoms COMPARISON STUDY: Head CT same day and also 04/28/2023 TECHNIQUE: Following the IV administration of 112 cc of Optiray, CT angiogram of the brain was performed from the skull base to the vertex. Images are reviewed in the axial, sagittal, and coronal planes. 3-D MIPS images are created and assessed. IV contrast was administered without complication. All measurements were obtained according to NASCET criteria. A dose lowering technique was utilized adhering to the principles of ALARA. FINDINGS: CT ANGIOGRAM OF THE BRAIN: There is prominent atherosclerotic plaque involving the cavernous, clinoid and supraclinoid segments of the internal carotid arteries without high-grade stenosis. The bilateral anterior and middle cerebral arteries are also patent. The vertebrobasilar system and posterior cerebral arteries are widely patent. There is no aneurysm, high-grade stenosis, or proximal branch occlusion identified. Dural sinuses appear patent. IMPRESSION: Unremarkable CTA of the head. ACT 112: Negative or not required by law. The above report was generated using voice recognition software. It may contain grammatical, syntax or spelling errors. Electronically signed by: Beningo Chau M.D. 11/29/2023 10:21 AM Neck CTA 11/29/23 09:46 CT ANGIOGRAM OF THE NECK CLINICAL HISTORY: Neurological deficit. Stroke like symptoms. COMPARISON STUDY: No priors. TECHNIQUE: Following the IV administration of 112 of Optiray 320, CT angiogram of the neck was performed from the aortic arch to the skull base. Images are reviewed in the axial, sagittal, and coronal planes. 3-D MIPS images are created and assessed. IV contrast was administered without complication. All measurements were calculated based on NASCET criteria. A dose lowering technique was utilized adhering to the principles of ALARA. CT DOSE: 1135.32 mGy.cm FINDINGS: Thoracic aorta: Visualized portions of the thoracic aorta are normal in caliber. The aortic arch demonstrates standard 3-vessel anatomy. Right carotid arterial system: The right common carotid artery is widely patent, as are the right internal and external carotid arteries. Calcified plaque is seen in the carotid bulb. Left carotid arterial system: The left common carotid artery is widely patent, as are the left internal and external carotid arteries. Calcified plaque is seen in the carotid bulb. Vertebral arteries: Widely patent bilaterally and codominant. Subclavian arteries: Widely patent bilaterally. Jugular veins: Patent bilaterally. Brain parenchyma: The visualized brain parenchyma the skull base is within normal limits. Lung apices: Partially visualized upper lobe lung parenchyma appears clear. Soft tissues: The visualized pharyngeal soft tissues are normal in appearance noting angiographic phase technique. The oropharyngeal airway appears widely patent. The salivary and thyroid glands are normal in appearance. No cervical lymphadenopathy is seen. Skeletal structures: The skeletal structures are osteopenic. The visualized calvarium at the skull base appears intact. The imaged cervical spine is maintained noting multilevel spondylosis. Sinuses and mastoids: The visualized paranasal sinuses are clear. There are small mastoid effusions. IMPRESSION: Unremarkable CT angiogram of the neck. ACT 112: Negative or not required by law. Electronically signed by: Washington Beltran M.D. 11/29/2023 10:09 AM Discharge Plan Visit Data Chief Complaint: Stroke Alert Stated Complaint: SYNCOPE ED Provider: Román Delgado Discharge Problem: AMS (altered mental status), Acute UTI (urinary tract infection) Forms Stand Alone Forms: My [facility] Prescriptions Prescriptions: No Action latanoprost 0.005 % drops 1 drp OPB QPM quetiapine 25 mg tablet 25 mg PO BID lorazepam 0.5 mg tablet 0.5 mg PO PM Rx Instructions: takes one tablet in the afternoon for anxiety lorazepam 0.5 mg tablet 0.25 mg PO BID Rx Instructions: take 0.25 mg BID acetaminophen 500 mg Capsule 1,000 mg PO Q6 PRN (Reason: Pain) potassium chloride 20 mEq tablet extended release 20 meq PO BID Rx Instructions: take with food amlodipine [Norvasc] 5 mg Tablet 5 mg PO QAM Qty: 30 0RF vitamin E 670 mg (1,000 unit) Capsule 670 mg PO BID Qty: 60 0RF pravastatin 40 mg Tablet 40 mg PO DAILY Qty: 30 0RF donepezil [Aricept] 10 mg tablet 10 mg PO QDB Qty: 30 0RF chlorthalidone 25 mg Tablet 25 mg PO QAM Qty: 30 0RF aspirin 81 mg Tablet,Delayed Release (Dr/Ec) 81 mg PO QAM Qty: 30 0RF levothyroxine 75 mcg Tablet 75 mcg PO DAILYBB Qty: 30 0RF calcium carbonate [Calcium 600] 600 mg calcium (1,500 mg) Tablet 600 mg PO QAM Qty: 30 0RF lisinopril 40 mg Tablet 40 mg PO QAM Qty: 30 0RF cholecalciferol (vitamin D3) [Vitamin D3] 25 mcg (1,000 unit) Capsule 25 mcg PO BID Qty: 30 0RF escitalopram oxalate 20 mg tablet 20 mg PO QAM Qty: 30 0RF glucosamine sulfate 1,000 mg Capsule 1,000 mg PO QAM Qty: 30 0RF omega-3 fatty acids-fish oil 684-1,200 mg Capsule,Delayed Release(Dr/Ec) 1 cap PO QAM Qty: 30 0RF Referrals Referrals: Rose Egan DO [Primary Care Provider] -
[2023-11-29] MEDS ORDERED: ACETAMINOPHEN 500 MG TAB PO PRN (18:53)
--- OUTSIDE RECORDS SUMMARY | 2023-11-29 18:55 | External Medical Summary | Summary of Care ---
Author Name Unknown Organization [facility] Address [address] [facility] [place] [address] Phone [phone] Care Team Providers Care Director Pharmaceutical Name Role Phone Rose Egan DO Primary Care Provider [phone] Reason for Visit * Reason Onset Date Comments Advice 11/18/2023 Encounter Details Date Type Department Care Team (Late st Contact Info) Description 11/18/2023 Telephone Family Practice [facility] [address] [place] [address] Rose Egan DO [address] [place] [address] Advice Allergies Active Allergy Reactions Criticality Noted Date Comments Naproxen 05/03/2003 edema and wt gain documented as of this encounter (statuses as of 11/21/2023) Medications Medication Sig Dispensed Refills Start Date End Date Status VITAMIN E CAPS 1000 IU OR 2 times a day. 0 09/04/2001 Active FISH OIL 1000 MG PO CAPS 1 Daily Active CALCIUM 600 MG PO TABS 1 daily Active VITAMIN D 1000 UNITS PO CAPSIndications:Oste oporosis One capsule twice daily 180 Cap 1 04/19/2014 Active amLODIPine (NORVASC) 2.5 MG Tablet Take 2 Tabs by mouth daily for 90 days. Take at 5 pm 180 Tab 0 06/14/2014 Active Aspirin 81 MG Tablet Take 1 Tablet by mouth in the morning. 11/15/2014 Active Glucosamine Sulfate 1000 MG Oral Capsule 1,000 mg. 11/07/2019 Acti ve Fluticasone Propionate 50 MCG/ACT Nasal SuspensionIndication s:Allergy to environmental factors two sprays each nostril once daily- as needed for allergies 3 Each 3 08/31/2021 Active Donepezil HCl 10 MG Oral Tablet (Aricept) Take 1 Tablet by mouth in the morning. Take with breakfast.. 100 Tablet 2 02/23/2023 Active Latanoprost 0.005 % Ophthalmic Solution (Xalatan) INSTILL 1 DROP INTO EACH EYE ONCE DAILY IN THE EVENING 10 mL 4 04/25/2023 Active LORazepam 0.5 MG Oral Tablet (Ativan)Indications: Anxiety Take 1 Tablet by mouth 2 times a day as needed for Agitation. 10 Tablet 05/06/2023 Active Chlorthalidone 25 MG Oral Tablet (Hygroton) TAKE ONE TABLET BY MOUTH EVERY DAY IN THE MORNING 100 Tablet 2 05/26/2023 Active Nystatin 203433 UNIT/GM External Cream 06/10/2023 Active Vitamin D3 Powder Active amLODIPine Besylate 5 MG Oral Tablet (Norvasc) 06/06/2023 Active LORazepam 0.5 MG Oral Tablet (Ativan) take 1 tablet by mouth twice daily as needed for agitation 60 Tablet 2 07/26/2023 Active amLODIPine Besylate 5 MG Oral Tablet (Norvasc)Indications :HTN, goal below 150/90 Take 1 Tablet by mouth in the morning. 90 Tablet 3 07/26/2023 Active Escitalopram Oxalate 20 MG Oral Tablet (Lexapro) take 1 tablet by mouth every day 90 Tablet 09/20/2023 Active LORazepam 0.5 MG Oral Tablet (Ativan) take 1/2 tablet by mouth twice daily as needed for agitation 30 Tablet 2 09/20/2023 Active Pravastatin Sodium 40 MG Oral Tablet (Pravachol)Indicatio ns:Dyslipidemia, goal LDL below 100 TAKE ONE TABLET BY MOUTH EVERY DAY 90 Tablet 2 10/18/2023 Active Potassium Chloride Kristy ER 20 MEQ Oral Tablet Extended ReleaseIndications:H TN, goal below 150/90 TAKE ONE TABLET BY MOUTH TWICE A DAY WITH FOOD 200 Tablet 10/18/2023 Active Lisinopril 40 MG Oral TabletIndications:HT N, goal below 150/90 TAKE ONE TABLET BY MOUTH EVERY DAY 100 Tablet 10/18/2023 Active Levothyroxine Sodium 75 MCG Oral Tablet (Levoxyl)Indications :Hypothyroidism, unspecified type TAKE 1 TABLET BY MOUTH DAILY AT LEAST 30 MINUTES PRIOR TO FIRST MEAL OF THE DAY OR OTHER MEDICATIONS 90 Tablet 2 10/18/2023 Active documented as of this encounter (statuses as of 11/21/2023) Active Problems Problem Noted Date Diagnosed Date Moderate dementia with agitation 07/19/2023 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 07/19/2023 Marital problems 07/19/2023 Moderate dementia 04/11/2023 Anxiety 04/11/2023 Other specified [...] as of this encounter (statuses as of 11/21/2023) Resolved Problems Problem Noted Date Diagnosed Date Resolved Date Dementia without behavioral disturbance 06/18/2022 04/11/2023 Dementia without behavioral disturbance 06/18/2022 04/11/2023 Other specified peripheral vascular diseases 04/11/2020 Encounter for examination fo r normal comparison and control in clinical research program 01/09/2018 01/31/2018 Overview: [facility] DETECT Study: Project # [id number], Manufacturing Engineer: Ang Rangel, PhD. SUMMARY: Goal: Establish test [...] contact study staff at ; after hours Manufacturing Engineer via the [facility] hospital transmission system operator . Diagnosis changed due to Research [...] as of this encounter (statuses as of 11/21/2023) Immunizations Name Administration Dates Next Due COVID-19 mRNA, LNP-s, No Pre serve, 2-Dose Series (Moderna) 04/30/2020,04/07/2020 Diptheria/Tetanus (Adult) 04/07/1989 Pneumococcal Conjugate Vacc, 13 Valent (Prevnar) 11/20/2014 Pneumococcal Polysaccharide PPV23 (Pneumovax) 01/19/2008 Seasonal Influenza Virus Vac cine, Unspecified Formulation 01/12/2016 Seasonal Influenza, Quadriva lent, No Preserve, IM 01/12/2016 Seasonal Influenza, Trivalen t, (IIV3), with Preserv, (Fluzone) 11/20/2014 TD - Tetanus/Diptheria (ADULT) 08/14/1999 0 [...] money to get more. Never true 04/26/2022 Utilities Answer Date Recorded Do you have trouble paying y our heating, water, or electric bill? (Adult - for ages 18 years and over) Not on file 08/23/2023 Is your family able to pay t he heat, water, or electric bill? (Household - for ages 0-17 years) Not on file 08/23/2023 Does your family have access to good internet? (Household - for ages 0-17 years) Not on file 08/23/2023 Social Connections Answer Date Recorded How often do you feel lonely or isolated from those around you? (Adult - for ages 18 years and over) Not on file 08/23/2023 Sex and Gender Information Value Date Recorded Sex Assigned at Female 08/04/2018 8:00 AM EDT Gender Identity Female 08/04/2018 8:00 AM EDT Sexual Orientation Straight 08/04/2018 8: 00 AM EDT Job Start Date Occupation Industry Not on file Not on file Not on file documented as of this encounter Miscellaneous Notes * Telephone Encounter - Priscilla Arzola OSA - 11/21/2023 2:59 PM EDT Appt was scheduled * Telephone Encounter - Samara Carbajal OSA - 11/21/2023 9:47 AM EDT LM for patient to call back and schedule appt for the wheel chair approval * Telephone Encounter - Cindy Kelley LPN - 11/19/2023 3:57 PM EDT Called sone and left a message to schedule an appointment Please call pt to set up in office appointment for pt. * Telephone Encounter - Chapis Mcgrath LPN - 11/19/2023 11:38 AM EDT Patient needs seen in clinic to obtail all information needed for Wheelchair. Left message for [place] to return call to [facility] for information. Please send to scheduling after they are aware. * Telephone Encounter - Nathalia Michelle OSA - 11/18/2023 10:55 AM EDT Pt. Would like to know if can order her a wheel chair. Pt is having a hard time walking. documented in this encounter Plan of Treatment Upcoming Encounters Date Type Department Care Team (Late st Contact Info) Description 11/22/2023 4:20 PM EDT Telemedicine Family Practice [facility] [address] [facility] [address] Katya Segal CRNP [address] [place] [address] 11/25/2023 10:00 AM EDT Office Visit Neurology [facility] [address] [place] [address] Nataliya Ward CRNP [address] [place] [address] 12/06/2023 12:40 PM EDT Office Visit Neurology [facility] [address] [facility] [place] [address] Luisana Nelson PA-C [address] [facility] [place] [address] 02/07/2024 1:40 PM EST Office Visit Family Practice [facility] [address] [place] [address] Rose Egan DO [address] [place] [address] Health Maintenance Due Date Last Done Comments Adult Wellness Visit 09/24/2021 09/24/2020 *BISPHONATE OR OTHER ACCEPTABLE MEDICATION NEEDED FOR OSTEOPOROSIS (REFER TO SMARTSET #1146) 06/21/2022 DTap/Tdap Vaccines (2 - Td or Tdap) 07/06/2022 07/06/2012, 01/15/2010, 08/14/1999, Additional history exists DXA Scan 10/07/2022 10/07/2020, 09/05, 07/24/2013, Additional history exists COVID-19 Vaccine ( season) 2023 02/10/2021, 04/30/2020, 04/30/2020, Additional history exists Influenza Vaccine (FLU shot) (#1) 2023 01/12/2016, 01/12/2016, 11/20/2014 GFR 12/30/2023 12/29/2022, 08/04/2022, 06/15/2022, Additional history exists Depression Screening 02/17/2024 02/16/2023 Albumin/Creatinine Ratio 05/22/2024 022, 04/23/2020, 08/02/2017 Mammogram 06/21/2024 06/22/2023, 06/05, 05/27/2022, Additional history exists TSH 06/28/2024 06/29/2023, 06/05, 05/22/2021, Additional history exists Pneumococcal Vaccine: 65+ Years Completed 11/20/2014, 01/19/2008 Zoster Vaccines Completed 12/06/2018, 09/06, 02/25/2010 VITAMIN D LEVEL ONCE IN A LIFETIME-USE SMARTSET# [id number] Completed 05/22/2021, 07/18/2008 HPV (Gardasil) Vaccine Aged Out No lo nger eligible based on patient's age to complete this topic Hepatitis B Vaccine Aged Out No longe r eligible based on patient's age to complete this topic MENINGOCOCCAL (MENACTRA/MENVEO) Aged Out No longer eligible based on patient's age to complete this topic documented as of this encounter Medical Devices Not on filedocumented as of this encounter Care Teams Director Pharmaceutical Relationship Specialty Start Date End Date Rose Egan DO [address] [place] [address] PCP - General Family Medicine 07/13/16 documented as of this encounter
--- OUTSIDE RECORDS SUMMARY | 2023-11-29 18:55 | External Medical Summary | Summary of Care ---
Author Name Unknown Organization [facility] Address [address] [facility] [place] [address] Phone [phone] Care Team Providers Care Roller Staker Name Role Phone Floyd Yeung DO Primary Care Provider [phone] Reason for Visit * Reason Comments Medication Refill Encounter Details Date Type Department Care Team (Late st Contact Info) Description 10/16/2023 Refill Family Practice [facility] [address] [place] [address] Floyd Yeung DO [address] [place] [address] Dyslipidemia, goal LDL below 100; HTN, goal below 150/90; Hypothyroidism, unspecified type Allergies Active Allergy Reactions Criticality Noted Date Comments Naproxen 05/03/2003 edema and wt gain documented as of this encounter (statuses as of 10/18/2023) Medications Medication Sig Dispensed Refills Start Date End Date Status VITAMIN E CAPS 1000 IU OR 2 times a day. 0 09/04/2001 Active FISH OIL 1000 MG PO CAPS 1 Daily Active CALCIUM 600 MG PO TABS 1 daily Active VITAMIN D 1000 UNITS PO CAPSIndications:Os teoporosis One capsule twice daily 180 Cap 1 04/19/2014 Active Aspirin 81 MG Tablet Take 1 Tablet by mouth in the morning. 11/15/2014 Active Glucosamine Sulfate 1000 MG Oral Capsule 1,000 mg. 11/07/2019 Active Fluticasone Propionate 50 MCG/ACT Nasal [...] 04/25/2023 Active LORazepam 0.5 MG Oral Tablet (Ativan)Indication s:Anxiety Take 1 Tablet by mouth 2 times a day as needed for Agitation. 10 Tablet 05/06/2023 Active Chlorthalidone 25 MG Oral Tablet (Hygroton) TAKE ONE TABLET BY MOUTH EVERY DAY IN THE MORNING 100 Tablet 2 05/26/2023 Active Nystatin 764933 UNIT/GM External Cream 06/10/2023 Active Vitamin D3 Powder Active amLODIPine Besylate 5 MG Oral Tablet (Norvasc) 06/06/2023 Active Rexulti 1 MG Oral Tablet (Brexpiprazole) Take one tablet by mouth at bedtime 30 Tablet 2 07/18/2023 Active LORazepam 0.5 MG Oral Tablet (Ativan) take 1 tablet by mouth twice daily as needed for agitation 60 Tablet 2 07/26/2023 Active amLODIPine Besylate 5 MG Oral Tablet (Norvasc)Indicatio ns:HTN, goal below 150/90 Take 1 Tablet by mouth in the morning. 90 Tablet 3 07/26/2023 Active Escitalopram Oxalate 20 MG Oral Tablet (Lexapro) take 1 tablet by mouth every day 90 Tablet 09/20/2023 Active Rexulti 2 MG Oral Tablet (Brexpiprazole) Take 1 tablet by mouth at bedtime 30 Tablet 2 09/20/2023 Active LORazepam 0.5 MG Oral Tablet [...] Tablet 10/18/2023 Active Lisinopril 40 MG Oral TabletIndications: HTN, goal below 150/90 TAKE ONE TABLET BY MOUTH EVERY DAY 100 Tablet 10/18/2023 Active Levothyroxine Sodium 75 MCG Oral Tablet (Levoxyl)Indicatio ns:Hypothyroidism, unspecified type TAKE 1 TABLET BY MOUTH DAILY AT LEAST 30 MINUTES PRIOR TO FIRST MEAL OF THE DAY OR OTHER MEDICATIONS 90 Tablet 2 10/18/2023 Active Levothyroxine Sodium 75 MCG Oral Tablet (Levoxyl)Indicatio ns:Hypothyroidism, unspecified type TAKE 1 TABLET BY MOUTH DAILY AT LEAST 30 MINUTES PRIOR TO FIRST MEAL OF THE DAY OR OTHER MEDICATIONS 90 Tablet 3 08/30/2022 4 Discontinue d(Refill) Lisinopril 40 MG Oral TabletIndications: HTN, goal below 150/90 TAKE ONE TABLET BY MOUTH EVERY DAY 90 Tablet 1 02/08/2023 4 Discontinue d(Refill) Potassium Chloride Kristy ER 20 MEQ Oral Tablet Extended ReleaseIndications :HTN, goal below 150/90 TAKE ONE TABLET BY MOUTH TWICE A DAY WITH FOOD 180 Tablet 1 02/22/2023 4 Discontinue d(Refill) Pravastatin Sodium 40 MG Oral Tablet (Pravachol)Indicat ions:Dyslipidemia, goal LDL below 100 TAKE ONE TABLET BY MOUTH EVERY DAY 90 Tablet 05/17/2023 4 Discontinue d(Refill) documented as of this encounter (statuses as of 10/18/2023) Active Problems Problem Noted Date Diagnosed Date [...] as of this encounter (statuses as of 10/18/2023) Resolved Problems Problem Noted Date Diagnosed Date Resolved Date Dementia without behavioral disturbance 06/18/2022 04/11/2023 Dementia without behavioral disturbance 06/18/2022 04/11/2023 Other specified peripheral vascular diseases 04/11/2020 Encounter for examination fo r normal comparison and control in clinical research program 01/09/2018 01/31/2018 Overview: [facility] DETECT Study: Project # [id number], Tile Finisher: Ang Rangel, PhD. SUMMARY: Goal: Establish test [...] contact study staff at ; after hours Tile Finisher via the [facility] hospital tanning drum operator . Diagnosis changed due to Research [...] as of this encounter (statuses as of 10/18/2023) Immunizations Name Administration Dates Next Due COVID-19 [...] encounter Miscellaneous Notes * Telephone Encounter - Re Rain RP - 10/18/2023 4:40 PM EDTSigned Prescriptions: Disp Refills Pravastatin Sodium 40 MG Oral Tablet (Prav*90 Tab*2 Sig: TAKE ONE TABLET BY MOUTH EVERY DAY Authorizing Provider: FLOYD YEUNG Ordering User: RE RAIN Potassium Chloride Kristy ER 20 MEQ Oral Tab*200 Ta*0 Sig: TAKE ONE TABLET BY MOUTH TWICE A DAY WITH FOOD Authorizing Provider: FLOYD YEUNG Ordering User: OLMAN RAIN Lisinopril 40 MG Oral Tablet 100 Ta*0 Sig: TAKE ONE TABLET BY MOUTH EVERY DAY Authorizing Provider: FLOYD YEUNG Ordering User: RE RAIN Levothyroxine Sodium 75 MCG Oral Tablet (L*90 Tab*2 Sig: TAKE 1 TABLET BY MOUTH DAILY AT LEAST 30 MINUTES PRIOR TO FIRST MEAL OF THE DAY OR OTHER MEDICATIONS Authorizing Provider: FLOYD YEUNG User: RE RAIN * Telephone Encounter - Transfer User, Rx Adt - 10/16/2023 12:14 AM EDTPending Prescriptions: Disp Refills Pravastatin Sodium 40 MG Oral Tablet (Prav*90 Tab*0 Sig: TAKE ONE TABLET BY MOUTH EVERY DAY Potassium Chloride Kristy ER 20 MEQ Oral Tab*180 Ta*1 Sig: TAKE ONE TABLET BY MOUTH TWICE A DAY WITH FOOD Lisinopril 40 MG Oral Tablet 90 Tab*1 Sig: TAKE ONE TABLET BY MOUTH EVERY DAY * Telephone Encounter - Transfer User, Rx Adt - 10/16/2023 12:14 AM EDTPending Prescriptions: Disp Refills Pravastatin Sodium 40 MG Oral Tablet (Prav*90 Tab*0 Sig: TAKE ONE TABLET BY MOUTH EVERY DAY Potassium Chloride Kristy ER 20 MEQ Oral Tab*180 Ta*1 Sig: TAKE ONE TABLET BY MOUTH TWICE A DAY WITH FOOD Lisinopril 40 MG Oral Tablet 90 Tab*1 Sig: TAKE ONE TABLET BY MOUTH EVERY DAY Levothyroxine Sodium 75 MCG Oral Tablet (L*90 Tab*3 Sig: TAKE 1 TABLET BY MOUTH DAILY AT LEAST 30 MINUTES PRIOR TO FIRST MEAL OF THE DAY OR OTHER MEDICATIONS * Telephone Encounter - Transfer User, Rx Adt - 10/16/2023 12:14 AM EDTPending Prescriptions: Disp Refills Pravastatin Sodium 40 MG Oral Tablet (Prav*90 Tab*0 Sig: TAKE ONE TABLET BY MOUTH EVERY DAY Potassium Chloride Kristy ER 20 MEQ Oral Tab*180 Ta*1 Sig: TAKE ONE TABLET BY MOUTH TWICE A DAY WITH FOOD documented in this encounter Plan of Treatment Upcoming Encounters Date Type Department Care Team (Late st Contact Info) Description 11/25/2023 10:00 AM EDT Office Visit Neurology [facility] [address] [place] [address] Nataliya Ward CRNP [address] [place] [address] 11/28/2023 3:00 PM EDT Imaging Radiology, [address] [place] [address] 12/06/2023 12:40 PM EDT Office Visit Neurology [facility] [address] [place] [address] Luisana Nelson PA-C [address] [facility] [address] 02/07/2024 1:40 PM EST Office Visit Family Practice [facility] [address] [place] [address] Floyd Yeung DO [address] [place] [address] Health Maintenance Due Date Last Done Comments [...] 2023 01/12/2016, 01/12/2016, 11/20/2014 GFR 12/30/2023 12/29/2022, 04/2022, 06/15/2022, Additional history exists Depression Screening 02/17/2024 02/16/2023 Albumin/Creatinine Ratio 05/22/2024 022, 04/23/2020, 08/02/2017 Mammogram 06/21/2024 06/22/2023, 06/05, 05/27/2022, Additional history exists TSH 06/28/2024 06/29/2023, 06/05, 05/22/2021, Additional history exists Pneumococcal Vaccine: 65+ Years Completed 11/20/2014, 01/19/2008 Zoster Vaccines Completed 12/06/2018, 09/06, 02/25/2010 VITAMIN D LEVEL ONCE IN A LIFETIME-USE SMARTSET# [id number] Completed 05/22/2021, 07/18/2008 HPV (Gardasil) Vaccine Aged [...] as of this encounter Visit Diagnoses Diagnosis Dyslipidemia, goal LDL below 100 Other and unspecified hyperlipidemia HTN, goal below 150/90 Hypothyroidism, unspecified type documented in this encounter Care Teams Roller Staker Relationship Specialty Start Date End Date Floyd Yeung DO [address] [place] [address] PCP - General Family Medicine 07/13/16 documented as of this encounter
--- OUTSIDE RECORDS SUMMARY | 2023-11-29 18:55 | External Medical Summary | Summary of Care ---
Author Name Unknown Organization [facility] Address [address] [facility] [place] [address] Phone [phone] Care Team Providers Care Dog Breeder Name Role Phone Rose Egan DO Primary Care Provider [phone] Reason for Visit * Reason Onset Date Comments Advice 11/18/2023 Encounter Details Date Type Department Care Team (Late st Contact Info) Description 11/18/2023 Telephone Family Practice [facility] [address] [place] [address] Rose Egan DO [address] [place] [address] Advice Allergies Active Allergy Reactions Criticality Noted [...] MORNING 100 Tablet 2 05/26/2023 Active Nystatin 493708 UNIT/GM External Cream 06/10/2023 Active Vitamin D3 [...] Overview: [facility] DETECT Study: Project # [id number], Broadcast News Producer: Ang Rangel, PhD. SUMMARY: Goal: Establish test [...] contact study staff at ; after hours Broadcast News Producer via the [facility] hospital tab card press operator . Diagnosis changed due to Research [...] Trivalen t, (IIV3), with Preserv, (Fluzone) 11/20/2014 TD, Preservative Free 01/15/2010,08/14/1999,0203/1989 TDAP (age 10 and older)(Boostrix) 07/06/2012 Varicella [...] encounter Miscellaneous Notes * Telephone Encounter - Samara Carbajal OSA [...] 11/25/2023 10:00 AM EDT Office Visit Neurology [facility] [address] [place] [address] Nataliya Ward CRNP [address] [place] [address] 11/28/2023 3:00 PM EDT Imaging Radiology, [place] [address] [place] [address] 12/06/2023 12:40 PM EDT Office Visit Neurology [facility] [address] [place] [address] [address] [address] Luisana Nelson PA-C [address] [place] [address] 02/07/2024 1:40 PM EST [facility] [place] [address] Rose Egan DO [address] [place] [address] Health Maintenance Due Date Last Done Comments [...] 2023 01/12/2016, 01/12/2016, 11/20/2014 GFR 12/30/2023 12/29/2022, 08/0 04/2022, 06/15/2022, Additional history exists Depression Screening 02/17/2024 02/16/2023 Albumin/Creatinine Ratio 05/22/2024 022, 04/23/2020, 08/02/2017 Mammogram 06/21/2024 06/22/2023, 06/05, 05/27/2022, Additional history exists TSH 06/28/2024 06/29/2023, 06/05, 05/22/2021, Additional history exists Pneumococcal Vaccine: 65+ Years Completed 11/20/2014, 01/19/2008 Zoster Vaccines Completed 12/06/2018, 09/06, 02/25/2010 VITAMIN D LEVEL ONCE IN A LIFETIME-USE SMARTSET# [id number] Completed 05/22/2021, 07/18/2008 HPV (Gardasil) Vaccine Aged [...] filedocumented as of this encounter Care Teams Dog Breeder Relationship Specialty Start Date End Date Rose Egan DO [address] [place] [address] PCP - General Family Medicine 07/13/16 documented as of this encounter
--- OUTSIDE RECORDS SUMMARY | 2023-11-29 18:55 | External Medical Summary | Summary of Care ---
Author Name Unknown Organization [facility] Address [address] [facility] [place] [address] Phone [phone] Care Team Providers Care Manager Nuclear Name Role Phone Rose Madsen DO Primary Care Provider [phone] Reason for Visit * Reason Onset Date Comments Advice 10/12/2023 Encounter Details Date Type Department Care Team (Late st Contact Info) Description 10/12/2023 Telephone Family Practice [facility] [address] [place] [address] Rose Madsen DO [address] [place] [address] Advice Allergies Active Allergy Reactions Criticality Noted Date Comments Naproxen 05/03/2003 edema and wt gain documented as of this encounter (statuses as of 10/12/2023) Medications Medication Sig Dispensed Refills Start Date End Date Status VITAMIN E CAPS 1000 IU OR 2 times a day. 0 09/04/2001 Active FISH OIL 1000 MG PO CAPS 1 Daily Active CALCIUM 600 MG PO TABS 1 daily Active VITAMIN D 1000 UNITS PO CAPSIndications:Ost [...] OR OTHER MEDICATIONS 90 Tablet 3 08/30/2022 10/24/2023 Active Lisinopril 40 MG Oral TabletIndications:H TN, [...] 04/25/2023 Active LORazepam 0.5 MG Oral Tablet (Ativan)Indications :Anxiety Take 1 Tablet by mouth 2 times a day as needed for Agitation. 10 Tablet 05/06/2023 Active Pravastatin Sodium 40 MG Oral Tablet (Pravachol)Indicati ons:Dyslipidemia, goal LDL below 100 TAKE ONE TABLET BY MOUTH EVERY DAY 90 Tablet 05/17/2023 05/16/2024 Active Chlorthalidone 25 MG Oral Tablet (Hygroton) TAKE ONE TABLET BY MOUTH EVERY DAY IN THE MORNING 100 Tablet 2 05/26/2023 Active Nystatin 683712 UNIT/GM External Cream 06/10/2023 Active Vitamin D3 [...] Active amLODIPine Besylate 5 MG Oral Tablet (Norvasc)Indication s:HTN, goal below 150/90 Take 1 Tablet by [...] for agitation 30 Tablet 2 09/20/2023 Active Amoxicillin-Pot Clavulanate 875-125 MG Oral Tablet (Augmentin)Indicati ons:Acute cystitis without hematuria Take 1 Tablet by mouth in the morning and 1 Tablet before bedtime. Do all this for 7 days. 14 Tablet 10/05/2023 10/12/2023 Active documented as of this encounter (statuses as of 10/12/2023) Active Problems Problem Noted Date Diagnosed Date [...] as of this encounter (statuses as of 10/12/2023) Resolved Problems Problem Noted Date Diagnosed Date Resolved Date Dementia without behavioral disturbance 06/18/2022 04/11/2023 Dementia without behavioral disturbance 06/18/2022 04/11/2023 Other specified peripheral vascular diseases 1 04/11/2020 Encounter for examination fo r normal comparison and control in clinical research program 01/09/2018 01/31/2018 Overview: [facility] DETECT Study: Project # [id number], Experimental Psychologist: Ang Rangel, PhD. SUMMARY: Goal: Establish test [...] contact study staff at ; after hours Experimental Psychologist via the [facility] hospital sweep press operator . Diagnosis changed due to [...] as of this encounter (statuses as of 10/12/2023) Immunizations Name Administration Dates Next Due COVID-19 [...] Telephone Encounter - Christen Reyez RN - 10/12/2023 3:46 PM EDT Called [facility]. Augmentin ordered and [facility] notified about on 10/04 has not been picked up. Called [facility] and spoke with Urvashi. Notified her that Augmentin was at pharmacy * Telephone Encounter - Rose Madsen DO - 10/12/2023 3:25 PM EDT Cx from fax was on 10/05/23 - this was already addressed, rx for augmentin sent Can we clarify if new culture was done? * Telephone Encounter - Christen Reyez RN - 10/12/2023 1:39 PM EDT Received fax with lab results. Placed on Dr madsen's desk * Telephone Encounter - Nadine Esqueda LPN - 10/12/2023 12:54 PM EDT Urvashi calling from [facility], she faxed urine lab report and has not heard anything back aboutprescribing antibiotic for patient. Advised her to refax the labs to [phone]. * Telephone Encounter - Jen Pinto OSA - 10/12/2023 12:50 PM EDT Reason for patient's call: Urvashi Lauryn from [facility] calling about pt. Caller was transferred to [facility] at the nurse line. documented in this encounter Plan of Treatment Upcoming Encounters Date Type Department Care Team (Late st Contact Info) Description 11/25/2023 10:00 AM EDT Office Visit Neurology [facility] [address] [place] [address] Nataliya Ward CRNP [address] [place] [address] 11/28/2023 3:00 PM EDT Imaging Radiology, [facility] [address] [facility] [place] [address] 12/06/2023 12:40 PM EDT Office Visit Neurology [facility] [address] [place] [address] Luisana Nelson PA-C [address] [place] [address] 02/07/2024 1:40 PM EST Office Visit Family Practice [facility] [address] [place] [address] Rose Madsen DO [address] [place] [address] Health Maintenance Due Date Last Done Comments [...] D LEVEL ONCE IN A LIFETIME-USE SMARTSET# [id number] Completed 05/22/2021, 07/18/2008 HPV (Gardasil) Vaccine Aged [...] filedocumented as of this encounter Care Teams Manager Nuclear Relationship Specialty Start Date End Date Rose Madsen DO [address] [place] [address] PCP - General Family Medicine 07/13/16 documented as of this encounter
--- OUTSIDE RECORDS SUMMARY | 2023-11-29 18:55 | External Medical Summary | Summary of Care ---
Author Name Unknown Organization [facility] Address [address] [facility] [place] [address] Phone [phone] Care Team Providers Care Unemployment Inspector Name Role Phone BlakeRose hinds Livia NOVA Primary Care Provider [phone] Reason for Visit * Reason Onset Date Comments [facility]: Screening 10/12/2023 Encounter Details Date Type Department Care Team (Late st Contact Info) Description 10/12/2023 Telephone [facility], [facility] [address] [facility] [place] [phone] [facility], Nurse [facility] [address] [facility] [place] [phone] [facility]: Screening Allergies Active Allergy Reactions Criticality Noted Date [...] MORNING 100 Tablet 2 05/26/2023 Active Nystatin 392453 UNIT/GM External Cream 06/10/2023 Active Vitamin D3 [...] Overview: [facility] DETECT Study: Project # [id number], Car Inspection And Repair Manager: Ang Rangel, PhD. SUMMARY: Goal: Establish test [...] contact study staff at ; after hours Car Inspection And Repair Manager via the [facility] hospital steam box operator . Diagnosis changed due to Research [...] encounter Miscellaneous Notes * Telephone Encounter - Jessica Bethea LPN - 10/12/2023 11:49 AM EDT Hannah Westfall was referred as a potential candidate for enrollment for [facility]. A review of this chart was completed and: Hannah does not meet criteria for enrollment into [facility]. Referral Source: Monthly Proactive Eligibility List Referring care team was notified via : [email or web address] communication Patient does reside in service area however does not have multiple chronic conditions required for [facility] Enrollment documented in this encounter Plan of Treatment Upcoming Encounters Date Type Department Care Team (Late st Contact Info) Description 11/25/2023 10:00 AM EDT Office Visit Neurology [facility] [address] [facility] [place] [address] Nataliya Ward CRNP [address] [facility] [place] [address] 11/28/2023 3:00 PM EDT Imaging Radiology, [place] [address] [facility] [place] [address] 12/06/2023 12:40 PM EDT Office Visit Neurology [facility] [address] [place] [address] Luisana Nelson PA-C [address] [facility] [address] [place] [address] 02/07/2024 1:40 PM EST Office Visit Family Practice [facility] [address] [place] [address] Rose Egan DO [address] [place] [address] Health Maintenance Due Date Last Done Comments [...] 2023 01/12/2016, 01/12/2016, 11/20/2014 GFR 12/30/2023 12/29/2022, 0804/2022, 06/15/2022, Additional history exists Depression Screening 02/17/2024 02/16/2023 Albumin/Creatinine Ratio 05/22/2024 022, 04/23/2020, 08/02/2017 Mammogram 06/21/2024 06/22/2023, 06/05, 05/27/2022, Additional history exists TSH 06/28/2024 06/29/2023, 06/05, 05/22/2021, Additional history exists Pneumococcal Vaccine: 65+ Years Completed 11/20/2014, 01/19/2008 Zoster Vaccines Completed 12/06/2018, 09/06, 02/25/2010 VITAMIN D LEVEL ONCE IN A LIFETIME-USE SMARTSET# [id number] Completed 05/22/2021, 07/18/2008 HPV (Gardasil) Vaccine Aged [...] filedocumented as of this encounter Care Teams Unemployment Inspector Relationship Specialty Start Date End Date Rose Egan DO [address] [facility] [place] [address] PCP - General Family Medicine 07/13/16 documented as of this encounter
--- OUTSIDE RECORDS SUMMARY | 2023-11-29 18:55 | External Medical Summary | Summary of Care ---
Author Name Unknown Organization [facility] Address [address] [facility] [place] [address] Phone [phone] Care Team Providers Care Lock And Dam Equipment Repairer Name Role Phone BlakeRose hinds Livia NOVA Primary Care Provider [phone] Reason for Visit * Reason Comments Acute Encounter Details Date Type Department Care Team (Late st Contact Info) Description 11/22/2023 4:20 PM EDT Telemedicine Family Practice [facility] [address] [place] [address] Katya Segal CRNP [address] [place] [address] Age-related physical debility*; Moderate Alzheimer's dementia with psychotic disturbance, unspecified timing of dementia onset (HCC); Major depressive disorder, recurrent, moderate (HCC); Other specified problems related to primary support group Allergies Active Allergy Reactions Criticality Noted Date Comments Naproxen 05/03/2003 edema and wt gain documented as of this encounter (statuses as of 11/22/2023) Medications Medication Sig Dispensed Refills Start Date [...] MORNING 100 Tablet 2 05/26/2023 Active Nystatin 177744 UNIT/GM External Cream 06/10/2023 Active Vitamin D3 [...] as of this encounter (statuses as of 11/22/2023) Active Problems Problem Noted Date Diagnosed Date Age-related physical debility 11/22/2023 Major depressive disorder, recurrent, moderate 0 11/22/2023 Other specified problems related to primary supp ort group 11/22/2023 Moderate dementia with agitation 07/19/2023 Moderate dementia [...] as of this encounter (statuses as of 11/22/2023) Resolved Problems Problem Noted Date Diagnosed Date Resolved Date Moderate dementia with psychotic disturbance 4 11/22/2023 Dementia without behavioral disturbance 06/18/2022 04/11/2023 Dementia without behavioral disturbance 06/18/2022 04/11/2023 Other specified peripheral vascular diseases 04/11/2020 Encounter for examination fo r normal comparison and control in clinical research program 01/09/2018 01/31/2018 Overview: [facility] Study: Project # [id number], Desktop Architect: Ang Rangel, PhD. SUMMARY: Goal: Establish test [...] contact study staff at ; after hours Desktop Architect via the [facility] hospital broom machine operator . Diagnosis changed due to Research Module. Go to Snapshot for study details. Lyme disease 08/10/2016 02/01/2017 Acute serous otitis media 05/06/2009 Dyslipidemia, goal to be determined 02/20/2009 07/08/2009 Overview: Per Lipid Taxonomy. Hypopotassemia 03/26/2002 01/15/2010 Allergic rhinitis 08/14/1998 09/24/2019 Overview: Acute. Mixed dyslipidemia 04/24/1998 12/200 9 Overview: Per Lipid Taxonomy. Hypothyroidism 03/21/1997 07/13/2016 HTN, goal below 140/90 03/14/199702/12 MENOPAUSE - 1991 07/13/2016 documented as of this encounter (statuses as of 11/22/2023) Immunizations Name Administration Dates Next Due COVID-19 mRNA, LNP-s, No Pre serve, 2-Dose Series (Moderna) 04/30/2020,04/07/2020 Pneumococcal Conjugate Vacc, 13 Valent (Prevnar) 11/20/2014 Pneumococcal Polysaccharide PPV23 (Pneumovax) 01/19/2008 Seasonal Influenza Virus Vac cine, Unspecified Formulation 01/12/2016 Seasonal Influenza, Quadriva lent, No Preserve, IM 01/12/2016 Seasonal Influenza, Trivalen t, (IIV3), with Preserv, (Fluzone) 11/20/2014 TD, Preservative Free 01/15/2010,08/14/1999,03/1989 TDAP (age [...] on file documented as of this encounter Progress Notes * Katya Segal CRNP - 11/22/2023 4:21 PM EDT Acute Telemed Family Medicine Visit Patient location: HOME. I was in a hospital or clinic location. After connecting through televideo,patient was verified with two unique identifiers. Patient (or authorized legal guest relations representative) was then informed that this was a Telemedicine visit and being conducted confidentially over secure lines. Methods to assure confidentiality were taken. Patient acknowledged consent and understanding of pr ivacy and security of the Telemedicine visit. The patient agreed to participate. CC: poa History of Present Illness: Hannah Beckham is a 83 year old female presenting today with her POA. Her POA- ana beckham. Son and medical POA. She is currently not on the video visit but the nurse is trying to waker her up. She can not walk. She can barely get out of bed or walk. She has not fallen. This is gradually getting worse. She lives at [facility] in [place]. NONVERBAL SHE HAS LESS AGITATION AND IRRITABILITY. Social History Socioeconomic History Marital status: Spouse name: James Number of children: 2 Years of education: Not on file Highest education level: Not on file Occupational History Occupation: retired Comment: [employer] Tobacco Use Smoking status: Never Smokeless tobacco: Never Vaping Use Vaping status: Never Used Substance and Sexual Activity Alcohol use: No Drug use: No Sexual activity: Not Currently Partners: Male Other Topics Concern Not on file Social History Narrative Not on file Social Determinants of Health Financial Resource Strain: Not on file Food Insecurity: No Food Insecurity (04/26/2022) Hunger Vital Sign Worried About Running Out of Food in the Last Year: Never true Ran Out of Food in the Last Year: Never true Transportation Needs: Not on file Social Connections: Unknown (08/23/2023) Social Connections How often do you feel lonely or isolated from those around you? (Adult - for ages 18 years and over): Not on file Housing Stability: Not on file PMH: Past Medical History: Diagnosis Date Dyslipidemia HTN, goal below 150/90 Hypothyroidism Past Surgical History: Procedure Laterality Date COLONOSCOPY, DIAGNOSTIC (RECTUM) 01/19/2013 COLONOSCOPY FLEXIBLE PROXIMAL DIAGNOSTIC performed by Kristy Priest DO at ENDOSCOPY [facility] COLONOSCOPY, GI REFERRAL OP 12/03/02 internal hemorrhoids-Dr. [...] VASC DUPLEX CAROTID BILAT 06/2015 <50% bilaterally Current Outpatient Medications Medication Sig Dispense Refill Levothyroxine Sodium 75 MCG Oral Tablet (Levoxyl) TAKE 1 TABLET BY MOUTH DAILY AT LEAST 30 MINUTES PRIOR TO FIRST MEAL OF THE DAY OR OTHER MEDICATIONS 90 Tablet 2 Lisinopril 40 MG Oral Tablet TAKE ONE TABLET BY MOUTH EVERY DAY 100 Tablet 0 Potassium Chloride Kristy ER 20 MEQ Oral Tablet Extended Release TAKE ONE TABLET BY MOUTH TWICE A DAYWITH FOOD 200 Tablet 0 Pravastatin Sodium 40 MG Oral Tablet (Pravachol) TAKE ONE TABLET BY MOUTH EVERY DAY 90 Tablet 2 Escitalopram Oxalate 20 MG Oral Tablet (Lexapro) take 1 tablet by mouth every day 90 Tablet 0 LORazepam 0.5 MG Oral Tablet (Ativan) take 1/2 tablet by mouth twice daily as needed for agitation 30 Tablet 2 amLODIPine Besylate 5 MG Oral Tablet (Norvasc) Take 1 Tablet by mouth in the morning. 90 Tablet 3 LORazepam 0.5 MG Oral Tablet (Ativan) take 1 tablet by mouth twice daily as needed for agitation 60Tablet 2 amLODIPine Besylate 5 MG Oral Tablet (Norvasc) Nystatin 558803 UNIT/GM External Cream Vitamin D3 Powder Chlorthalidone 25 MG Oral Tablet (Hygroton) TAKE ONE TABLET BY MOUTH EVERY DAY IN THE MORNING 100 Tablet 2 LORazepam 0.5 MG Oral Tablet (Ativan) Take 1 Tablet by mouth 2 times a day as needed for Agitation.10 Tablet 0 Latanoprost 0.005 % Ophthalmic Solution (Xalatan) INSTILL 1 DROP INTO EACH EYE ONCE DAILY IN THE EVENING 10 mL 4 Donepezil HCl 10 MG Oral Tablet (Aricept) Take 1 Tablet by mouth in the morning. Take with breakfast.. 100 Tablet 2 Fluticasone Propionate 50 MCG/ACT Nasal Suspension two sprays each nostril once daily- as needed for allergies 3 Each 3 Glucosamine Sulfate 1000 MG Oral Capsule 1,000 mg. Aspirin 81 MG Tablet Take 1 Tablet by mouth in the morning. amLODIPine (NORVASC) 2.5 MG Tablet Take 2 Tabs by mouth daily for 90 days. Take at 5 pm 180 Tab 0 VITAMIN D 1000 UNITS PO CAPS One capsule twice daily 180 Cap 1 CALCIUM 600 MG PO TABS 1 daily FISH OIL 1000 MG PO CAPS 1 Daily VITAMIN E CAPS 1000 IU OR 2 times a day. 0 No current facility-administered medications for this visit. Review of patient's allergies indicates: Allergen Reactions Naproxen edema and wt gain Most Recent Immunizations Administered Date(s) Administered COVID-19 mRNA, LNP-s, No Preserve, 2-Dose Series (Moderna) 04/30/2020 COVID-19 mRNA, LNP-s, No Preserve, 2-Dose Series (Pfizer) 04/30/2020 Diptheria/Tetanus (Adult) 04/07/1989 Pneumococcal Conjugate Vacc, 13 Valent (Prevnar) 11/20/2014 Pneumococcal Polysaccharide PPV23 (Pneumovax) 01/19/2008 Seasonal Influenza Virus Vaccine, Unspecified Formulation 01/12/2016 Seasonal Influenza, Quadrivalent, No Preserve, IM 01/12/2016 Seasonal Influenza, Trivalent, (IIV3), with Preserv, (Fluzone) 11/20/2014 TD - Tetanus/Diptheria (ADULT) 08/14/1999 TD, Preservative Free 01/15/2010 TDAP (age 10 and older)(Boostrix) 07/06/2012 Varicella Zoster Vaccine (Adult) 02/25/2010 Zoster Vaccine Recombinant (Shingrix) 12/06/2018 Review of Systems: Review of Systems Psychiatric/Behavioral: Positive for confusion. The patient is nervous/anxious. Physical Exam: There were no vitals taken for this visit. Physical Exam HENT: Head: Normocephalic. Pulmonary: Effort: Pulmonary effort is normal. Neurological: General: No focal deficit present. Mental Status: She is alert and oriented to person, place, and time. Psychiatric: Cognition and Memory: Cognition is impaired. Memory is impaired. Assessment and Plan: 1. Age-related physical debility Unable to walk, NEED WHEELCHAIR - DURABLE MEDICAL EQUIPMENT 2. Moderate Alzheimer's dementia with psychotic disturbance, unspecified timing of dementia onset (HCC) Nonverbal Drowsy POA- son ana speaks for her - DURABLE MEDICAL EQUIPMENT I have advised the patient to call our office incase of any worsening or new symptoms. I spent a total of 10-19 minutes (exact time 20 mins) on the date of service in preparation, delivery, and documentation of the care provided to Hannah Beckham excluding any time spent in the performance of separately billed services. Tereso, MSN, DUANE [facility]'s documented in this encounter Plan of Treatment Upcoming Encounters Date Type Department Care Team (Late st Contact Info) Description 11/25/2023 10:00 AM EDT Office Visit Neurology [facility] [address] [facility] [place] [address] Nataliya Ward CRNP [address] [facility] [address] 12/06/2023 12:40 PM EDT Office Visit Neurology [facility] [address] [facility] [place] [address] Luisana Nelson PA-C [address] [facility] [place] [address] 02/07/2024 1:40 PM EST Office Visit Family Practice [facility] [address] [place] [address] Rose Egan DO [address] [place] [address] Health Maintenance Due Date Last Done Comments [...] D LEVEL ONCE IN A LIFETIME-USE SMARTSET# [id number] Completed 05/22/2021, 07/18/2008 HPV (Gardasil) Vaccine Aged [...] as of this encounter Visit Diagnoses Diagnosis Age-related physical debility- Primary Senility without mention of psychosis Moderate Alzheimer's dementia with psychotic disturbance, unspecified timing of dementia onset (HCC) Major depressive disorder, recurrent, moderate (HCC) Major depressive disorder, recurrent episode, moderate Other specified problems related to primary support group documented in this encounter Care Teams Lock And Dam Equipment Repairer Relationship Specialty Start Date End Date Rose Egan DO [address] [facility] [place] [address] PCP - General Family Medicine 07/13/16 documented as of this encounter
--- OUTSIDE RECORDS SUMMARY | 2023-11-29 18:55 | External Medical Summary | Summary of Care ---
Author Name Unknown Organization [facility] Address [address] [facility] [place] [address] Phone [phone] Care Team Providers Care Computer Tester Name Role Phone Rose Egan DO Primary Care Provider [phone] Reason for Visit * Reason Onset Date Comments Test Results Lab 10/05/2023 Encounter Details Date Type Department Care Team (Late st Contact Info) Description 10/05/2023 Refill Family Practice [facility] [address] [place] [address] Rose Egan DO [address] [place] [address] Acute cystitis without hematuria* Allergies Active Allergy Reactions Criticality Noted Date Comments Naproxen 05/03/2003 edema and wt gain documented as of this encounter (statuses as of 10/05/2023) Medications Medication Sig Dispensed Refills Start Date [...] BY MOUTH EVERY DAY 90 Tablet 05/17/2023 5 Active Chlorthalidone 25 MG Oral Tablet (Hygroton) TAKE ONE TABLET BY MOUTH EVERY DAY IN THE MORNING 100 Tablet 2 05/26/2023 Active Nystatin 479050 UNIT/GM External Cream 06/10/2023 Active Vitamin D3 [...] Active Amoxicillin-Pot Clavulanate 875-125 MG Oral Tablet (Augmentin)Indicat ions:Acute cystitis without hematuria Take 1 Tablet by mouth in the morning and 1 Tablet before bedtime. Do all this for 7 days. 14 Tablet 10/05/2023 4 Active Cefdinir 300 MG Oral Capsule (Omnicef) take 1 capsule (300 mg) orally twice a day for 7 days 14 Capsule 07/17/2023 4 Discontinue d(Medicatio n List Clean Up) documented as of this encounter (statuses as of 10/05/2023) Active Problems Problem Noted Date Diagnosed Date [...] as of this encounter (statuses as of 10/05/2023) Resolved Problems Problem Noted Date Diagnosed Date Resolved Date Dementia without behavioral disturbance 06/18/2022 04/11/2023 Dementia without behavioral disturbance 06/18/2022 04/11/2023 Other specified peripheral vascular diseases 04/11/2020 Encounter for examination fo r normal comparison and control in clinical research program 01/09/2018 01/31/2018 Overview: [facility] DETECT Study: Project # [id number], Chair Spring Assembler: Agn Rangel, PhD. SUMMARY: Goal: Establish test characteristics [...] contact study staff at ; after hours Chair Spring Assembler via the [facility] hospital featheredge machine operator . Diagnosis changed due to [...] as of this encounter (statuses as of 10/05/2023) Immunizations Name Administration Dates Next Due COVID-19 [...] Telephone Encounter - Christen Reyez RN - 10/05/2023 1:54 PM EDT Called [facility] to notify rx was sent. Lab results sent to scan. * Telephone Encounter - Cameron Rodas MED ASSIST - 10/05/2023 12:40 PM EDT Received fax from [facility] requesting to sent rx due to test results from [facility]. * Telephone Encounter - Rose Egan DO - 10/05/2023 12:37 PM EDT Cx e.coli castle sensitive Rx for augmentin sent to pharmacy Please let facility know * Telephone Encounter - Christen Reyez RN - 10/05/2023 11:10 AM EDT Received fax from [facility] statin that pt needs antibiotic order. Labs attached. Placed on Dr Egan's desk. Pharmacy confirmed documented in this encounter Plan of Treatment Upcoming Encounters Date Type Department Care Team (Late st Contact Info) Description 10/14/2023 1:20 PM EDT Office Visit Neurology [facility] [place] [address] [facility] [place] [address] Nataliya Ward CRNP [address] [place] [address] 11/28/2023 3:00 PM EDT Imaging Radiology, [facility] [address] [place] [address] 12/06/2023 12:40 PM EDT Office Visit Neurology [facility] [address] [facility] [place] [address] Luisana Nelson PA-C [address] [facility] [place] [address] 02/07/2024 1:40 PM EST Office Visit Family [facility] [address] [place] [address] Rose Egan DO [address] [place] [address] Health Maintenance Due Date Last Done Comments [...] D LEVEL ONCE IN A LIFETIME-USE SMARTSET# [id number] Completed 05/22/2021, 07/18/2008 HPV (Gardasil) Vaccine Aged [...] as of this encounter Visit Diagnoses Diagnosis Acute cystitis without hematuria- Primary Acute cystitis documented in this encounter Care Teams Computer Tester Relationship Specialty Start Date End Date Rose Egan DO [address] [place] [address] PCP - General Family Medicine 07/13/16 documented as of this encounter
--- OUTSIDE RECORDS SUMMARY | 2023-11-29 18:55 | External Medical Summary | Summary of Care ---
Author Name Unknown Organization [facility] Address [address] [facility] [place] [address] Phone [phone] Care Team Providers Care Print Machine Operator Name Role Phone BlakeRose hinds Livia NOVA Primary Care Provider [phone] Reason for Visit * Reason Onset Date Comments Appointment 11/22/2023 Encounter Details Date Type Department Care Team (Late st Contact Info) Description 11/22/2023 Telephone Family Practice [facility] [address] [place] [address] Katya Segal CRNP [address] [place] [address] Appointment Allergies Active Allergy Reactions Criticality Noted Date [...] MORNING 100 Tablet 2 05/26/2023 Active Nystatin 796641 UNIT/GM External Cream 06/10/2023 Active Vitamin D3 [...] [facility] DETECT Study: Project # [id number], Blood Bank Business Manager: Ang Rangel, PhD. SUMMARY: Goal: Establish [...] contact study staff at ; after hours Blood Bank Business Manager via the [facility] grout machine operator . Diagnosis changed due to [...] encounter Miscellaneous Notes * Telephone Encounter - Chloe Nazario, MED ASSIST - 11/22/2023 1:24 PM EDT Attempted to call patient -- was unable to reach, but left a detailed message and asked to call back. Patient is being seen via video visit today, however she is looking to get a wheel chair. This would be more appropriate as an in-person, in office visit that way we are able to get height,weight, and other things absolutely needed. If return call, please re-schedule to IN-PERSON office visit. documented in this encounter Plan of Treatment Upcoming Encounters Date Type Department Care Team (Late st Contact Info) Description 11/25/2023 10:00 AM EDT Office Visit Neurology [facility] [address] [place] [address] Nataliya Ward CRNP [address] [place] [address] 12/06/2023 12:40 PM EDT Office Visit Neurology [facility] [address] [place] [address] Luisana Nelson PA-C [address] [facility] [place] [address] 02/07/2024 1:40 PM EST Office Visit Family Practice [facility] [address] [place] [address] Rose Egan DO [address] [place] [address] Health Maintenance Due Date Last Done Comments [...] D LEVEL ONCE IN A LIFETIME-USE SMARTSET# [id number] Completed 05/22/2021, 07/18/2008 HPV (Gardasil) Vaccine Aged [...] filedocumented as of this encounter Care Teams Print Machine Operator Relationship Specialty Start Date End Date Rose Egan DO [address] [place] [address] PCP - General Family Medicine 07/13/16 documented as of this encounter
--- OUTSIDE RECORDS SUMMARY | 2023-11-29 18:55 | External Medical Summary | Summary of Care ---
Author Name Unknown Organization [facility] Address [address] [facility] [place] [address] Phone [phone] Care Team Providers Care Senior Software Development Manager Name Role Phone BlakeRose hinds Primary Care Provider [phone] Encounter Details Date Type Department Care Team (Late st Contact Info) Description 10/03/2023 Result Scan Unspecified Department <No scans attached> Allergies Active Allergy Reactions Criticality Noted Date Comments Naproxen 05/03/2003 edema and wt gain documented as of this encounter (statuses as of 10/06/2023) Medications Medication Sig Dispensed Refills Start Date [...] MORNING 100 Tablet 2 05/26/2023 Active Nystatin 540909 UNIT/GM External Cream 06/10/2023 Active Vitamin D3 [...] for agitation 30 Tablet 2 09/20/2023 Active documented as of this encounter (statuses as of 10/06/2023) Active Problems Problem Noted Date Diagnosed Date [...] as of this encounter (statuses as of 10/06/2023) Resolved Problems Problem Noted Date Diagnosed Date Resolved Date Dementia without behavioral disturbance 06/18/2022 04/11/2023 Dementia without behavioral disturbance 06/18/2022 04/11/2023 Other specified peripheral vascular diseases 04/11/2020 Encounter for examination fo r normal comparison and control in clinical research program 01/09/2018 01/31/2018 Overview: [facility] DETECT Study: Project # [id number], Cardiopulmonary Technologist Chief: Ang Rangel, PhD. SUMMARY: Goal: Establish test [...] contact study staff at ; after hours Cardiopulmonary Technologist Chief via the [facility] hospital end lathe operator . Diagnosis changed due to Research [...] as of this encounter (statuses as of 10/06/2023) Immunizations Name Administration Dates Next Due COVID-19 [...] money to buy more. Never true 04/26/19 Within the past 12 months, t he [...] on file documented as of this encounter Plan of Treatment Upcoming Encounters Date Type Department Care Team (Late st Contact Info) Description 10/14/2023 1:20 PM EDT Office Visit Neurology [facility] [address] [place] [address] [address] Nataliya Ward CRNP [address] [facility] [address] 11/28/2023 3:00 PM EDT Imaging Radiology, [place] [address] [facility] [place] [address] 12/06/2023 12:40 PM EDT Office Visit Neurology [facility] [address] [place] [address] [address] Luisana Nelson PA-C [address] [place] [address] 02/07/2024 1:40 PM EST Office Visit Family Practice [facility] [address] [place] [address] Rose Egan DO [address] [place] [address] Health Maintenance Due Date Last Done Comments [...] D LEVEL ONCE IN A LIFETIME-USE SMARTSET# [id number] Completed 05/22/2021, 07/18/2008 HPV (Gardasil) Vaccine Aged [...] Not on filedocumented as of this encounter Procedures Procedure Name Priority Date/Time Associated Diagnosis Comments OUTSIDE LAB RESULTS 10/03/2023 documented in this encounter Results * OUTSIDE LAB RESULTS (10/03/2023) 10/03/2023 No Physician Data Unknown LABORATORY documented in this encounter Care Teams Senior Software Development Manager Relationship Specialty Start Date End Date Rose Egan DO [address] [facility] [place] [address] PCP - General Family Medicine 07/13/16 documented as of this encounter
--- OUTSIDE RECORDS SUMMARY | 2023-11-29 18:55 | External Medical Summary | Summary of Care ---
Author Name Unknown Organization [facility] Address [address] [facility] [place] [address] Phone [phone] Care Team Providers Care Plastics Engineer Name Role Phone BlakeRose hinds Livia NOVA Primary Care Provider [phone] Reason for Visit * Reason Comments Acute Encounter Details Date Type Department Care Team (Late st Contact Info) Description 11/22/2023 4:20 PM EDT Telemedicine Family Practice [facility] [address] [place] [address] Katya Segal CRNP [address] [place] [address] Age-related physical debility*; Moderate Alzheimer's dementia with [...] MORNING 100 Tablet 2 05/26/2023 Active Nystatin 609946 UNIT/GM External Cream 06/10/2023 Active Vitamin D3 [...] 01/31/2018 Overview: [facility] Study: Project # [id number], Filenet P8 Developer: Ang Rangel, PhD. SUMMARY: Goal: Establish [...] contact study staff at ; after hours Filenet P8 Developer via the [facility] hospital conveyor system operator . Diagnosis changed due to [...] two unique identifiers. Patient (or authorized legal senior outside sales representative) was then informed that this was [...] is gradually getting worse. She lives at [facility] [place] NONVERBAL SHE HAS LESS AGITATION AND IRRITABILITY. Social History Socioeconomic History Marital status: Spouse name: James Number of children: 2 Years of education: Not on file Highest education level: Not on file Occupational History Occupation: retired Comment: [employer] Tobacco Use Smoking status: Never Smokeless tobacco: [...] performed by Kristy Priest DO at ENDOSCOPY [facility] COLONOSCOPY, GI REFERRAL OP 12/03/02 [...] Besylate 5 MG Oral Tablet (Norvasc) Nystatin 229244 UNIT/GM External Cream Vitamin D3 Powder Chlorthalidone [...] of separately billed services. Tereso, MSN, DUANE [facility]'s documented in this encounter Plan of Treatment Upcoming Encounters Date Type Department Care Team (Late st Contact Info) Description 11/25/2023 10:00 AM EDT Office Visit Neurology [facility] [address] [place] [address] Nataliya Ward CRNP [address] [facility] [address] 12/06/2023 12:40 PM EDT Office Visit Neurology [facility] [address] [facility] [place] [address] Luisana Nelson PA-C [address] [facility] [place] [address] 02/07/2024 1:40 PM EST Office Visit Family Practice [facility] [address] [place] [address] Rose Egan DO [address] [place] [address] Health Maintenance Due Date Last Done Comments [...] D LEVEL ONCE IN A LIFETIME-USE SMARTSET# [id number] Completed 05/22/2021, 07/18/2008 HPV (Gardasil) Vaccine Aged [...] group documented in this encounter Care Teams Plastics Engineer Relationship Specialty Start Date End Date Rose Egan DO [address] [facility] [place] [address] PCP - General Family Medicine 07/13/16 documented as of this encounter
[2023-11-29] MEDS: HEPARIN SOD 5,000 UNIT/0.5 ML VIAL SQ SCH (20:55)
[2023-11-29] MEDS: MAGNESIUM OXIDE 400 MG TAB PO SCH (20:56)
[2023-11-29] MEDS: LORazepam 0.5 MG TAB PO SCH (20:56)
[2023-11-29] MEDS: PRAVASTATIN SOD 40 MG TAB PO SCH (20:56)
[2023-11-29] MEDS: LATANOPROST 0.005% OP SOLN 2.5 ML BTL OPB SCH (20:56)
[2023-11-29] MEDS: POTASSIUM CHLORIDE CRTAB 20 MEQ TABCR PO SCH (20:56)
[2023-11-29] MEDS: QUEtiapine FUMARATE 25 MG TABLET PO SCH (20:56)
[2023-11-29] MEDS: CHOLECALCIFEROL 25 MCG (1000 UNITS) TAB PO SCH (20:56)
--- NOTE | 2023-11-29 21:39 | Electrocardiogram Report ---
Test Reason : Blood Pressure : */* mmHG Vent. Rate : 64 BPM Atrial Rate : 64 BPM P-R Int : 192 ms QRS Dur : 88 ms QT Int : 492 ms P-R-T Axes : 79 56 78 degrees QTcB Int : 507 ms Sinus rhythm with Premature supraventricular complexes Cannot rule out Anterior infarct , age undetermined Prolonged QT Abnormal ECG When compared with ECG of 28-Apr-2023 23:24, Premature supraventricular complexes are now Present QT has lengthened Confirmed by Robert Campbell ([id number]) on 11/29/2023 9:38:41 PM Referred By: Confirmed By: Robert Campbell
[2023-11-29] MEDS: amLODIPine BESYLATE 5 MG TAB PO ONE (23:51)
[2023-11-30] MEDS: GADOBUTROL 65ML VIAL IV ONE (00:36)
--- NOTE | 2023-11-30 02:15 | Magnetic Resonance Report ---
Exam(s): MRI HEAD W/WO Contrast IV Amt: 6.5cc gadavist EXAM: MR Head Without and With Intravenous Contrast CLINICAL HISTORY: Reason for exam: r/o stroke, strokelike symptoms. TECHNIQUE: Magnetic resonance images of the head/brain without and with intravenous contrast in multiple planes. CONTRAST: Patient received 6.5cc gadavist of IV contrast COMPARISON: Prior head CT from November 29, 2023. FINDINGS: Brain: Advanced nonspecific white matter changes. No mass. No hemorrhage. No acute infarct. No evidence of abnormal enhancement. The dural venous sinuses are patent. Ventricles: Moderate ventriculomegaly. Bones/joints: Unremarkable. No acute fracture. Sinuses: Unremarkable as visualized. No acute sinusitis. Mastoid air cells: There is a tiny amount of fluid in the mastoid air cells. No mastoid effusion. Orbits: Bilateral lens replacements. IMPRESSION: No evidence of acute intracranial pathology. Electronically signed by: Daniela Green MD 11/30/23 02:14 AM
[2023-11-30] MEDS: SODIUM CHLORIDE 0.9% 1,000 ML IV ONE (03:46)
[2023-11-30] MEDS: amLODIPine BESYLATE 5 MG TAB PO ONE (04:43)
[2023-11-30] MEDS: LEVOTHYROXINE SODIUM 75 MCG TABLET PO SCH (06:04)
[2023-11-30 06:35] LABS: Basophils # (auto) 0.04 K/uL (0.00-0.20); Basophils % (auto) 0.6 %; Eosinophils % (auto) 1.6 %; Hemoglobin 11.5 g/dl (12.0-16.0); Immature Granulocytes # (auto) 0.02 K/uL (0.01-0.20); Immature Granulocytes % (auto) 0.3 %; Lymphocytes # (auto) 1.83 K/uL (1.20-3.40); Lymphocytes % (auto) 28.5 %; Mean Corpuscular Hemoglobin 29.9 pg (25.0-34.0); Mean Corpuscular Hgb Conc 32.9 g/dL (32.0-36.0); Mean Corpuscular Volume 91.1 fL (80.0-100.0); Mean Platelet Volume 9.4 fL (9.4-12.4); Monocytes # (auto) 0.53 K/uL (0.11-0.59); Monocytes % (auto) 8.2 %; Neutrophils # (auto) 3.91 K/uL (1.40-6.50); Neutrophils % (auto) 60.8 %; Platelet Count 233 K/uL (130-400); RDW Coefficient of Variation 12.6 % (11.5-14.5); RDW Standard Deviation 41.3 fL (36.4-46.3); Red Blood Count 3.84 M/uL (4.20-5.40); White Blood Count 6.43 K/ul (4.8-10.8)
[2023-11-30 06:56] LABS: Albumin Globulin Ratio 1.1 (0.9-2); Albumin Level 3.4 gm/dl (3.4-5.0); BUN Creatinine Ratio 16.5 (10-20); Bilirubin,Total 0.4 mg/dl (0.2-1.0); Calcium 9.1 mg/dl (8.6-10.3); Creatinine Clr Calc Pharmacy 52.3 ml/min; Est GFR (African American) 81.4 ml/min; Est GFR (Non-African American) 70.2 ml/min; Globulin 3.1 gm/dl (2.5-4.0); Magnesium 1.6 mg/dl (1.7-2.4); Phosphorus 3.1 mg/dl (2.5-4.9); Potassium 3.3 mmol/L (3.5-5.1); Total Protein 6.5 gm/dl (6.0-8.3)
[2023-11-30] MEDS ORDERED: CHLORTHALIDONE 25 MG TAB PO SCH (09:00)
[2023-11-30] MEDS ORDERED: amLODIPine BESYLATE 5 MG TAB PO SCH (09:00)
[2023-11-30] MEDS: GLUCOSAMINE SULFATE 500 MG CAP PO SCH (09:01)
[2023-11-30] MEDS: CALCIUM 600MG + VIT D 400 IU TAB PO SCH (09:02)
[2023-11-30] MEDS: ASPIRIN 81 MG ECTAB PO SCH (09:02)
[2023-11-30] MEDS: lisinopril 40 MG TAB PO SCH (09:02)
[2023-11-30] MEDS: DONEPEZIL HCL 10 MG TAB PO SCH (09:03)
[2023-11-30] MEDS: ESCITALOPRAM OXALATE 20 MG TAB PO SCH (09:03)
[2023-11-30] MEDS: LORazepam 0.5 MG TAB PO SCH (09:15)
[2023-11-30] MEDS: POTASSIUM CHLORIDE CRTAB 20 MEQ TABCR PO SCH (09:17)
--- NOTE | 2023-11-30 12:49 | Hospitalist Progress Note ---
Date of Service November 30, 2023 Assessment & Plan (1) Stroke-like symptoms: (2) Complicated UTI (urinary tract infection): Plan Hannah Westfall is an 83y/o F with PMHx of dyslipidemia, hypothyroidism, HTN, peripheral vascular disease, bilateral primary open-angle glaucoma, dementia, anxiety/depression and other problems listed below who presented to the ED on 11/29/23 via EMS from [facility] for evaluation of stroke-like symptoms. Patient reportedly with questionable left-sided facial drooping that ultimately resolved HAND CLERICAL VERIFIER. [facility] staff was concerned that the patient may be having a stroke. Patient was a stroke alert on arrival. Initial stoke work-up in the ED was negative for suspected stroke. However, it was noted that patient had a UTI. She received 1 dose of IV Rocephin in the ED. According to a discussion the admitting provider had with the patient's family, it seems that she usually presents with atypical symptoms such as facial drooping when she has a UTI. Stroke-Like Symptoms: Head CT, head CTA and neck CTA were all negative in the ED as per above. Brain MRI negative. Echo completed, still awaiting formal report. PT/OT evals pending. Continue home ASA, will hold on neuro consult for now. ROOM ATTENDANT attempted to speak with the patient but she was in a deep sleep and the family agreed not to wake her. Family reports patient is back at baseline. Complicated UTI: UA infected on admission, currently on IV Rocephin. Blood cx pending. Preliminary urine cx growing gram-negative bacilli. Will continue IV Rocephin. Advanced Dementia: Continue home donepezil, Seroquel and Ativan. Delirium precautions. She recently had a telemedicine appt [done solely over the phone] with the [facility] on 11/25/23. Findings at that appt were consistent with moderate level of dementia, most likely due to vascular dementia +/- Alzheimer's dementia. Other Chronic Medical Conditions: Hypothyroidism, anxiety/depression, HTN, dyslipidemia, bilateral primary open-angle glaucoma --> Can continue home medications for these specific conditions. DVT Prophylaxis: SQ Heparin Code Status: FULL CODE PCP: Rose Egan DO Disposition: Admitted in Med/Surg + Telemetry, will consult CM for routine discharge planning assistance. Patient seen in collaboration with Dr. Khan. Please see addendum. I spent a total of 55 minutes coordinating, documenting, and providing care for this patient excluding time spent in the performance of separately billed services. This included personally reviewing all current laboratories and imaging studies, medical reconciliation, outpatient chart review and discussion with specialists. This chart was completed in part utilizing Speech Voice Recognition Software. Grammatical errors, random word insertions, pronoun errors, and incomplete sentences are an occasional consequence of this system due to software limitations, ambient noise, and hardware issues. Any formal questions or concerns about the content, text, or information contained within the body of this dictation should be directly addressed to the provider for clarification. Admission and Anticipated Discharge Date Admission Date: November 29, 2023 Supervising Physician Co-Signing Physician Notes I have seen and discussed the case with the collaborating advanced practitioner. I agree with the above H&P. I have reviewed and confirmed the patients medical history, the findings on physical examination, and the patients diagnosis and treatment plan with Lex CHILDERS and agree with the information documented. Evaluated patient in am. Denies recollection of events leading up to admission apparently at baseline this am Exam with no focal neurologic deficits #Stroke-like symptoms, likely iso UTI #Dementia Resolved MRI reviewed with no acte stroke delirium precautions #Complicated UTI cx with GNB, continue CTX rest of plan as above I spent a total of 15 minutes coordinating, documenting, and providing care for this patient excluding time spent in the performance of separately billed services. All of the aforementioned completed outside of collaborating with the assigned advanced practitioner for a full treatment plan. I have reviewed the advanced practitioner's documentation, and I agree with, and take responsibility for the plan of care Subjective Patient was being assisted with breakfast this morning when I saw her. She responded to verbal commands. When asked if she had any pain, she simply stated "no." Spoke with nurse at bedside, reports patient has been oriented mostly to herself since being on the floor. Review of Systems Review of Systems: At least ten systems reviewed and negative, except as noted in the subjective section. Physical Exam Physical Exam: General: Vitals as above, NAD, sitting up in bed, pleasantly confused. A+O mostly to self but answers yes/no questions appropriately. HEENT: Normocephalic, atraumatic. Gazing straight ahead, conjunctivae normal, anicteric sclerae, oropharynx normal. Respiratory: Normal respiratory effort, lungs clear to auscultation, no wheeze, rales, rhonchi. No accessory muscle use. Cardiovascular: Regular rate, rhythm, no murmur, normal peripheral pulses, no BLE edema. Vessels: No JVD. Abdomen/GI: Normal bowel sounds, soft, nontender, no hepatosplenomegaly. Extremities/Musculoskeletal: No cyanosis or clubbing, resting tremor noted in RUE, did not witness active movement. Neurologic: Demented sensorium, no facial drooping noted, CN's II-XI not formally tested but appear grossly intact bilaterally. Skin: No rashes, normal color, warm/dry. Results & Data Results & Data Vital Signs (Past 12 Hours) Vital Signs Temp Pulse Pulse Resp BP BP Pulse Ox 11/30/23 11:36 36.7 C 85 17 164/71 H 95 11/30/23 11:05 54 L 11/30/23 08:32 36.8 C 80 17 179/87 H 95 11/30/23 08:09 11/30/23 05:58 36.9 C 61 18 156/82 H 97 11/30/23 04:21 84 176/76 H 94 11/30/23 03:00 36.5 C 87 17 178/89 H 93 O2 Del Method 11/30/23 11:36 Room Air 11/30/23 11:05 11/30/23 08:32 Room Air 11/30/23 08:09 Room Air 11/30/23 05:58 Room Air 11/30/23 04:21 Room Air 11/30/23 03:00 Room Air Laboratory Results Short CBC 11/30/23 Range/Units 05:32 WBC 6.43 (4.8-10.8) K/ul Hgb 11.5 L (12.0-16.0) g/dl Hct 35.0 L (37.0-47.0) % Plt Count 233 (130-400) K/uL BMP 11/30/23 05:32 Sodium 140 Potassium 3.3 L Chloride 108 H Carbon Dioxide 25 BUN 13 Creatinine 0.79 Glucose 86 Calcium 9.1 Liver Function 11/30/23 Range/Units 05:32 Total Bilirubin 0.4 (0.2-1.0) mg/dl AST 14 (13-39) U/L ALT 5 L (7-52) U/L Alkaline Phosphatase 50 (34-104) U/L Albumin 3.4 (3.4-5.0) gm/dl
[2023-11-30] MEDS: cefTRIAXone SODIUM 2,000 MG/50 ML BAG IV SCH (14:00)
[2023-11-30 14:55] LABS: BUN Creatinine Ratio 19.5 (10-20); Creatinine Clr Calc Pharmacy 50.4 ml/min; Est GFR (African American) 77.8 ml/min; Est GFR (Non-African American) 67.1 ml/min; Potassium 3.9 mmol/L (3.5-5.1)
[2023-12-01] MEDS: amLODIPine BESYLATE 5 MG TAB PO ONE (05:02)
[2023-12-01 07:11] LABS: Hematocrit (blood only) 31.9 % (37.0-47.0); Hemoglobin 10.5 g/dl (12.0-16.0); Mean Corpuscular Hemoglobin 30.1 pg (25.0-34.0); Mean Corpuscular Hgb Conc 32.9 g/dL (32.0-36.0); Mean Corpuscular Volume 91.4 fL (80.0-100.0); Mean Platelet Volume 9.9 fL (9.4-12.4); Platelet Count 221 K/uL (130-400); RDW Coefficient of Variation 12.7 % (11.5-14.5); RDW Standard Deviation 41.9 fL (36.4-46.3); Red Blood Count 3.49 M/uL (4.20-5.40); White Blood Count 6.83 K/ul (4.8-10.8)
[2023-12-01] MEDS: CHLORTHALIDONE 25 MG TAB PO SCH (08:07)
[2023-12-01] MEDS ORDERED: amLODIPine BESYLATE 5 MG TAB PO SCH (09:00)
[2023-12-01 09:15] LABS: Calcium 8.9 mg/dl (8.6-10.3); Magnesium 1.7 mg/dl (1.7-2.4); Potassium 3.4 mmol/L (3.5-5.1)
[2023-12-01 09:21] LABS: BUN Creatinine Ratio 23.4 (10-20); Creatinine Clr Calc Pharmacy 53.6 ml/min; Est GFR (African American) 83.9 ml/min; Est GFR (Non-African American) 72.4 ml/min; Phosphorus 2.5 mg/dl (2.5-4.9)
--- NOTE | 2023-12-01 12:07 | Discharge Summary ---
Date of Service December 01, 2023 Admission HPI Per Admitting Provider Pt is an 83yoF with PMHx significant for dementia, Hypertension, hypothyroidism, hyperlipidemia, glaucoma presenting from her alf with concern for stroke. History obtained from patient's daughter and at bedside. Daughter states that they got a call from her brother saying that the alf was concerned that she was pale and needed to be evaluated in the emergency room. They noted that last week she had possible questionable left-sided facial droop that has since resolved. States they were concerned about a stroke. They note a history of dementia and also states that patient tends to have abnormal symptoms like those reported when she has a urinary tract infection. Patient is alert and oriented x 1 in the room, very pleasant. States she is cold requiring 3 blankets however she denies any fevers, chills or night sweats. Denies any dysuria. Patient was a stroke alert on arrival. Workup in the emergency room thus far has been negative for suspected stroke. However it was noted that patient had a urinary tract infection. She received 1 dose of Rocephin in the emergency room. Admission Exam Per Admitting Provider General: Alert, orientedx1. resting comfortably in bed Skin: No noted rashes or bruises Psych: Appropriate mood and affect Neuro: oriented x1 HEENT: NC/AT, pt fixes gaze straight ahead Chest: Nontender to palpation. CV: RRR Resp: Breath sounds clear bilaterally, no increased effort of breathing. Abdomen: Soft, nontender Extremities: No edema in lower extremities bilaterally. Principal Diagnosis Stroke-Like Symptoms [Acute CVA Ruled-Out], Complicated UTI Discharge Exam General: Vitals as above, NAD, sitting up in bed, pleasantly confused. A+O mostly to self but answers yes/no questions appropriately. HEENT: Normocephalic, atraumatic. Gazing straight ahead, conjunctivae normal, anicteric sclerae, oropharynx normal. Respiratory: Normal respiratory effort, lungs clear to auscultation, no wheeze, rales, rhonchi. No accessory muscle use. Cardiovascular: Regular rate, rhythm, no murmur, normal peripheral pulses, no BLE edema. Vessels: No JVD. Abdomen/GI: Normal bowel sounds, soft, nontender, no hepatosplenomegaly. Extremities/Musculoskeletal: No cyanosis or clubbing, resting tremor noted in BL UE, did not witness active movement. Neurologic: Demented sensorium, no facial drooping noted, CN's II-XI not formally tested but appear grossly intact bilaterally. Skin: No rashes, normal color, warm/dry. Discharge Data Allergies Allergy/AdvReac Type Severity Reaction Status Date / Time naproxen Allergy Mild ITCH Verified 11/29/23 14:37 PAIN MEDICATION Allergy Intermediate Hallucinati Uncoded 11/29/23 14:37 ng Ordered Studies 11/29/23 09:46 CT angio head w con Stat CT angio neck with con Stat CT head/brain wo con Stat 11/30/23 00:00 MR brain wo/w con Urgent Hospital Course (1) Stroke-like symptoms: (2) Complicated UTI (urinary tract infection): Jhoan Westfall is an 83y/o F with PMHx of dyslipidemia, hypothyroidism, HTN, peripheral vascular disease, bilateral primary open-angle glaucoma, dementia, anxiety/depression and other problems listed below who presented to the ED on 11/29/23 via EMS from [facility] for evaluation of stroke-like symptoms. Stroke-Like Symptoms [Acute CVA Ruled-Out]: Patient reportedly with questionable left-sided facial drooping that ultimately resolved [facility]. [facility] staff was concerned that the patient may be having a stroke. Patient was a stroke alert on arrival. Initial stoke work-up in the ED was negative for suspected stroke. However, it was noted that patient had a UTI. She received 1 dose of IV Rocephin in the ED. According to a discussion the admitting provider had with the patient's family, it seems that she usually presents with atypical symptoms such as facial drooping when she has a UTI. Head CT, head CTA and neck CTA were all negative in the ED as per above. Brain MRI negative. Echo done 11/30/23 showed the following --> LVEF=60-65%, mild concentric LVH, moderate aortic valve sclerosis, grade I diastolic dysfunction and no interatrial shunt. PT/OT evaluated patient. She is being discharged back to [facility] today. Continue home ASA on discharge. Complicated UTI: UA infected on admission, s/p IV Rocephin 2g x 3 doses. Final urine culture grew E. coli and Alpha strep. not enterococcus. Blood cultures are negative. Will be sending her home on PO Augmentin to complete a full 7-day course of ABX therapy. made aware. Advanced Dementia: Continue home donepezil, Seroquel and Ativan at time of discharge. She recently had a telemedicine appt [done solely over the phone] with [facility] on 11/25/23. Findings at that appt were consistent with moderate level of dementia, most likely due to vascular dementia +/- Alzheimer's dementia. Patient is scheduled to see Luisana Nelson PA-C with [facility] on 12/06/23 @ 12:40PM. Other Chronic Medical Conditions: Hypothyroidism, anxiety/depression, HTN, dyslipidemia, bilateral primary open-angle glaucoma --> Can continue home medications for these specific conditions at time of discharge. PCP: Rose Egan, --> Discharge f/u appointment scheduled on 12/07/23 @ 1:40PM. Disposition: Patient is being discharged back to [facility] in stable condition. Patient seen in collaboration with Dr. Khan. Please see addendum. I spent a total of 55 minutes coordinating, documenting, and providing care for this patient excluding time spent in the performance of separately billed services. This included personally reviewing all current laboratories and imaging studies, medical reconciliation, outpatient chart review and discussion with specialists. This chart was completed in part utilizing Speech Voice Recognition Software. Grammatical errors, random word insertions, pronoun errors, and incomplete sentences are an occasional consequence of this system due to software limitations, ambient noise, and hardware issues. Any formal questions or concerns about the content, text, or information contained within the body of this dictation should be directly addressed to the provider for clarification. Home Health Attestation I certify that this patient is under my care and that I, or a physicians university administrative assistant working with me, had a face to-face encounter that meets the home health [id number] encounter requirements with this patient. The encounter with the patient was in whole, or in part, for the following medical condition, which is the primary reason for home health care (list med ical condition): I certify that, based on my findings, the following services are medically necessary home health services: My clinical findings support the need for the above services because: Further, I certify that my clinical findings support that this patient is homebound (i.e. absences from home require considerable and taxing effort and are for medical reasons or yarsanism services or infrequently or of short duration when for other reasons) because: Certification for Home Health Services: Based on the above findings, I certify that this patient is confined to the home and needs intermittent prison care, physical therapy and/or speech the rapy or continues to need occupational therapy. The patient is under my care, and I have initiated the establishment of the plan of care. This patient will be followed by a physician who will periodically review the plan of care. Total Time Total Time Spent Total Time Spent (In Minutes): 55 Discharge Plan Discharge Items Patient Disposition: Personal [facility] Reason For Visit: UTI Discharge Diagnosis: Stroke-Like Symptoms [Acute CVA Ruled-Out] & Complicated UTI Activity: Resume your previous activity Non-emergency contact: Primary Care Provider Call non-emergency contact if: you have any medication questions, your symptoms worsen and you have a fever Follow-up/Referrals: Luisana Nelson PA-C [Physician Clothes Wringer] - (Date & Time 12/06/2023 12:40 PM Provider Luisana Nelson PA-C Department Neurology [facility] ) Rose Egan DO [Primary Care Provider] - (Date & Time 12/07/2023 1:40 PM Provider Rose Egan DO Department Family Practice [facility] ) Diet: Heart Healthy Diet Texture: Easy to Chew Addtl Attending Provider Instructions: Hannah, You were admitted to the hospital due to stroke-like symptoms and found to have a urinary tract infection (UTI). All of the work-up that we completed, including brain MRI and an echocardiogram, were NEGATIVE for an acute stroke. We started you on an IV antibiotic as a result of your UTI. Your urine culture ended up growing E. coli and Alpha strep bacterium. These are very common types of bacteria to cause a UTI. You are being discharged on a 4-DAY COURSE of ORAL AUGMENTIN in order to complete a full 7-day course of antibiotic therapy. Please take this medication as recommended and in its entirety! We also started you on a magnesium supplement during your hospitalization. Please continue to take this supplement as prescribed! You can continue taking all of your other home medications as previously prescribed. PLEASE ATTEND THE FOLLOWING APPOINTMENTS SCHEDULED: 12/07/2023 @ 1:40 PM Provide: Rose Egan DO Department: Family Practice [facility] & 12/06/2023 @ 12:40 PM Provider: Luisana Nelson PA-C Department: Neurology [facility] SEEK MEDICAL ATTENTION IF YOU HAVE: * temperature above 101F * chest pain or trouble breathing * abdominal pain, nausea, vomiting * diarrhea, dark stools or bloody stools * any unanswered questions or concerns Call 911 if symptoms are severe. Please take good care of yourself. It has been a pleasure taking care of you. If you have any questions regarding your recent hospitalization please contact [facility] and request [facility] Hospitalist @ [phone]. Pending Studies at Discharge: No Stand-Alone Forms: My [facility] [employer], Smoking Cessation Skilled Items Patient informed of condition?: Yes DNR: No Discharge Level of Care: Other Communicable Disease: No Discharge Prognosis: Stable Lines: None Urinary Catheter: No Medications and DC Order Prescriptions: New amoxicillin-pot clavulanate 875-125 mg tablet 1 tab PO BID 4 Days Qty: 8 0RF magnesium oxide 400 mg magnesium tablet 400 mg PO BID Qty: 60 0RF Continued latanoprost 0.005 % drops 1 drp OPB QPM quetiapine 25 mg tablet 25 mg PO BID lorazepam 0.5 mg tablet 0.5 mg PO PM Rx Instructions: takes one tablet in the afternoon for anxiety lorazepam 0.5 mg tablet 0.25 mg PO BID Rx Instructions: take 0.25 mg BID acetaminophen 500 mg Capsule 1,000 mg PO Q6 PRN (Reason: Pain) potassium chloride 20 mEq tablet extended release 20 meq PO BID Rx Instructions: take with food amlodipine [Norvasc] 5 mg Tablet 5 mg PO QAM Qty: 30 0RF vitamin E 670 mg (1,000 unit) Capsule 670 mg PO BID Qty: 60 0RF pravastatin 40 mg Tablet 40 mg PO DAILY Qty: 30 0RF donepezil [Aricept] 10 mg tablet 10 mg PO QDB Qty: 30 0RF chlorthalidone 25 mg Tablet 25 mg PO QAM Qty: 30 0RF aspirin 81 mg Tablet,Delayed Release (Dr/Ec) 81 mg PO QAM Qty: 30 0RF levothyroxine 75 mcg Tablet 75 mcg PO DAILYBB Qty: 30 0RF calcium carbonate [Calcium 600] 600 mg calcium (1,500 mg) Tablet 600 mg PO QAM Qty: 30 0RF lisinopril 40 mg Tablet 40 mg PO QAM Qty: 30 0RF cholecalciferol (vitamin D3) [Vitamin D3] 25 mcg (1,000 unit) Capsule 25 mcg PO BID Qty: 30 0RF escitalopram oxalate 20 mg tablet 20 mg PO QAM Qty: 30 0RF glucosamine sulfate 1,000 mg Capsule 1,000 mg PO QAM Qty: 30 0RF omega-3 fatty acids-fish oil 684-1,200 mg Capsule,Delayed Release(Dr/Ec) 1 cap PO QAM Qty: 30 0RF Discharge Orders: Discharge Order (Routine); Ordered 12/01/23 Ordered By: Radha Oliveira/Other Patient Handouts: Urinary Tract Infections in Women Admission Data Admit Date/Time: 11/29/23 13:00 Attending Provider: Ritu Khan Admit Provider: Radha Mckeon Primary Care Provider: Rose Egan Other Interventions: Discharge Summary Assessment (RN) Last Done: 12/01/23 13:06 Supervising Physician Co-Signing Physician Notes I have seen and discussed the case with the collaborating advanced practitioner. I agree with the above DS. I have reviewed and confirmed the patients medical history, the findings on physical examination, and the patients diagnosis and treatment plan with Lex CHILDERS and agree with the information documented. Patient evaluated this am. Reports feeling well overall, endorses strong appetite. Exam with no focal neurologic deficits #Stroke-like symptoms, likely iso UTI #Dementia Resolved MRI reviewed with no acte stroke delirium precautions #Complicated UTI transitioned to augmentin for 7 days course for e coli/alpha strep coverage rest of plan as above I spent a total of 15 minutes coordinating, documenting, and providing care for this patient excluding time spent in the performance of separately billed services. All of the aforementioned completed outside of collaborating with the assigned advanced practitioner for a full treatment plan. I have reviewed the advanced practitioner's documentation, and I agree with, and take responsibility for the plan of care
[2023-12-01 12:35] VITALS: BP 142/78; RESP 12; TEMP 99.1; O2SAT 98
[2023-12-01] MEDS: cefTRIAXone SODIUM 2,000 MG/50 ML BAG IV STA (13:00)
[2023-12-01 13:08] VITALS: PULSE 69
[2023-12-02] MEDS ORDERED: amLODIPine BESYLATE 5 MG TAB PO SCH (09:00)
== END 2023-12-01 14:13 | disposition home or self-care (01) | DRG 690 ==
LOC: ED 09:37 → SUATTDRO 13:00 → 2N 13:00